=== PATIENT | male | born 1935 | race Caucasian/White ===

== ENCOUNTER 2018-08-14 10:02 | Outpatient (REF) | payer MEDICARE, BC, SELFPAY ==
[2018-08-14 14:34] LABS: Anion Gap 10.6 mmol/L (3-11); BUN 26 mg/dL (7-18); CO2 26.4 mmol/L (21.0-32.0); CREATININE 1.87 mg/dL (0.70-1.30); Calcium 9.3 mg/dL (8.5-10.1); Chloride 105 mmol/L (98-107); Estimated GFR 34.83 (mL/min/1.73m2); Glucose 113 mg/dL (70-100); Potassium 4.7 mmol/L (3.5-5.1); Sodium 142 mmol/L (136-145)
== END 2018-08-14 10:22 ==
LOC: NCHCN 10:02
PROVIDERS: PCP Internal Medicine; Visit Provider Internal Medicine
DX: I10 Essential (primary) hypertension (principal)
CPT/HCPCS: 80048

== ENCOUNTER 2019-02-16 11:06 | Outpatient (REF) | payer MEDICARE, BC, SELFPAY ==
[2019-02-16 13:07] LABS: Anion Gap 9.4 mmol/L (3-11); BUN 26 mg/dL (7-18); CO2 26.6 mmol/L (21.0-32.0); Calcium 9.2 mg/dL (8.5-10.1); Chloride 104 mmol/L (98-107); Estimated GFR 38.88 (mL/min/1.73m2); Glucose 108 mg/dL (70-100); Potassium 4.7 mmol/L (3.5-5.1); Sodium 140 mmol/L (136-145)
[2019-02-16 14:30] LABS: Cholesterol 158 mg/dL (50-200); HDL Cholesterol 55 mg/dL (40-60); LDL CHOLESTEROL 86 mg/dL (<100); Triglyceride 90 mg/dL (30-150)
== END 2019-02-16 11:26 ==
LOC: NCHCN 11:06
PROVIDERS: PCP Internal Medicine; Visit Provider Internal Medicine
DX: E78.5 Hyperlipidemia, unspecified (principal); I10 Essential (primary) hypertension; N18.3 Chronic kidney disease, stage 3 (moderate)
CPT/HCPCS: 80048; 80061; 83721

== ENCOUNTER 2020-05-19 11:02 | Outpatient (REF) | payer MEDICARE, BC, SELFPAY ==
[2020-05-19 21:11] LABS: HCT 43.5 % (40.0-50.0); HGB 15.2 g/dL (13.5-17.5); Mean Corp. HGB Concentration 34.9 g/dL (32.0-36.0); Mean Corpuscular Hemoglobin 32.2 pg (27.0-33.0); Mean Corpuscular Volume 92.2 fL (80-95); Mean Platelet Volume 10.5 fL (8.0-11.0); Platelet Count 267 x1000/uL (130-400); RBC 4.72 m/cumm (4.50-6.00); RBC Distribution Width 13.9 % (11.8-14.1); White Blood Cell Count 9.34 k/cumm (4.4-10.8)
[2020-05-19 21:45] LABS: ALT 31 U/L (16-63); AST 24 U/L (15-37); Albumin 4.1 g/dL (3.4-5.0); Alkaline Phosphatase 83 U/L (46-116); Anion Gap 11.9 mmol/L (3-11); BUN 32 mg/dL (7-18); Bilirubin, Total 1.2 mg/dL (0.2-1.0); CO2 24.1 mmol/L (21.0-32.0); Calcium 9.3 mg/dL (8.5-10.1); Chloride 106 mmol/L (98-107); Estimated GFR 36.21 (mL/min/1.73m2); Ferritin 488 ng/mL (26-388); Glucose 135 mg/dL (74-106); Potassium 4.4 mmol/L (3.5-5.1); Sodium 142 mmol/L (136-145); Total Protein 6.9 g/dL (6.4-8.2)
[2020-05-19 21:47] LABS: ESR 11 mm/hr (1-20)
== END 2020-05-19 11:22 ==
LOC: NCHCN 11:02
PROVIDERS: PCP Internal Medicine; Visit Provider Internal Medicine
DX: R10.2 Pelvic and perineal pain (principal); M25.551 Pain in right hip; N18.3 Chronic kidney disease, stage 3 (moderate); I10 Essential (primary) hypertension
CPT/HCPCS: 80053; 85027; 85652; 82728

== ENCOUNTER 2020-05-31 12:38 | Emergency (ER) | payer MEDICARE, BC, SELFPAY ==
--- NOTE | 2020-05-31 12:42 | ED.GENADUL_ITS ---
Discharge Plan Disposition Patient Disposition: HOME Condition: Good Discharge Details Chief Complaint: Orthopedic Clinical Impression: Arthritis, Bursitis Primary Care Provider: Gabriel Brooks ED Provider: Nannette Andujar Home Meds and New Rx's Prescriptions: Continued atorvastatin 20 mg Tablet 20 mg PO DAILY RF: 0 amlodipine 5 mg Tablet 5 mg PO DAILY RF: 0 aspirin [Aspir-81] 81 mg Tablet,Delayed Release (Dr/Ec) 81 mg PO DAILY RF: 0 lisinopril 40 mg Tablet 40 mg PO DAILY RF: 0 cholecalciferol (vitamin D3) [Vitamin D3] 50 mcg (2,000 unit) Capsule 2,000 unit PO DAILY RF: 0 Discharge Instructions Instructions: Arthritis (ED) Additional Instructions: Encourage water intake. You may continue with Tylenol and/or ibuprofen as needed for discomfort. Please use these medications more frequently as I would like you to be able to move more than you have been. Please encourage gentle stretching and ambulation. Avoid heavy lifting. Please call orthopedics, number listed below, to schedule follow-up appointment for your arthritis. Referral for physical therapy is also attached. You may continue with topical options as well such as lidocaine patches to help with discomfort. If you develop any fever/chills, increased pain, weakness or other new/worsening symptom please seek care urgently once again. Stand Alone Forms: Physical Therapy Referral Referrals: George Charlton MD [ [facility] STAFF PHYSICIAN] - Gabriel Brooks MD [Primary Care Provider] - Discharge Data Discharge Date/Time-TO BE ENTERED AT DEPARTURE: 05/31/20 15:54 Medical Decision Making Patient is a pleasant 85-year-old gentleman presenting today, brought in via EMS, with chief complaint of right hip pain. He reports the pain began several months ago. He has had waxing and waning discomfort. However, he states that the pain has been more so persistent over the past week. States that he had mowed his lawn for an extended period of time and since then has been having right-sided hip pain. He reports that the pain is minimal recent pain mainly at a 3 out of 10. However, he then goes on to say that he has not been getting out of bed for the past week except to use the restroom. He denies any numbness or tingling. Denies any trauma. States he was evaluated by his primary care who felt this was likely osteoarthritis. He was scheduled for outpatient x-rays but states that he had the schedule long which is what prompted him to come in via EMS today for evaluation and x-rays. He does report that he can occasionally have right-sided low back pain as well and also states that this has been chronic. He denies any change in his bowel or bladder habits. Reports that he intermittently uses Tylenol and ibuprofen but as he is able to control the pain with immobilization he tries to go without medications. On exam, patient is resting comfortably. He appears to be no acute distress. Normal abdominal exam. Pelvis is stable. He is to persist with pulses. Good range of motion of the hip. He has pain with palpation over the greater trochanter consistent with trochanteric bursitis. No groin pain. No lower extremity edema. 2+ distal pulses. Sensation is intact, no saddle paresthesias. Exam is back significant for discomfort of the right SI joint. Patient does report the pain can radiate either from this area to the right half or vice versa. He has no midline tenderness. No paraspinal tenderness. Skin is intact, no rash, erythema, warmth. He is declining any analgesics at this time. X-rays reviewed by radiologist: FINDINGS: Five views were obtained. There is a mild right convex lumbar scoliosis. There are marked hypertrophic degenerative changes involving the facet joints and vertebral endplates throughout the lumbar region. There is no evidence of spondylolysis or spondylolisthesis. There are mild degenerative changes of the SI joints. There is loss of height intervertebral disc spaces L2-3 and L5-S1. There is a mild pseudo spondylolisthesis of L5-S1. No evidence of acute fracture. IMPRESSION: Severe degenerative changes, no evidence of acute injury. FINDINGS: Two views were obtained. There are moderate degenerative changes of both hips. No evidence of acute fracture. IMPRESSION: Discussed findings with the patient. As his pain seems to be primarily over the bursa, I did offer an injection which patient declines. He is in agreement with a lidocaine patch. I did encourage him to take analgesics that are offered to him as him being so immobile could be detrimental to his health and many other ways. I also advised that this may lead to persistent discomfort. Initially, the patient had declined. However, when we attempted to mobilize him in order to get him into a wheelchair, his pain came on much more and he required Tylenol and ibuprofen. He is able to straight leg raise after this and is able to get up unassisted to a wheelchair. Patient I did discuss his discomfort further. I will refer him to physical therapy. I will also refer him to orthopedics for evaluation of his arthritis. At this point, I am unclear as to what is causing the maximal discomfort for this patient. Again, he is most tender laterally and has no pain with axial loading of the hip. No other, with mobilization the pain does seem to be more SI joint with no radiation to suggest sciatic impingement. Patient was given strict return precautions. I did speak with the patient's over the phone. I did advise he may return at any point for further evaluation and pain manag ement techniques. He will follow-up with primary care. All his questions and concerns were addressed and he is in agreement this plan. HPI General Mode of arrival: EMS . Date/Time Provider Initiated Documentation: 05/31/20 12:42 . Limitations to Documentation: no limitations . Information obtained by: patient, RN notes reviewed and old records reviewed . History of Present Illness 85 year old M presents to the emergency department with the chief complaint of Right hip pain, described as mild, with intensity rated at 3. Quality is described as aching, and is localized to the right and lower extremity. Patient reports no radiation. Patient started experiencing this week(s) and it has been constant (Resolved with immobilization, otherwise constant). Immobilization improves symptom(s), Movement worsens symptoms . Patient notes no other symptoms.; denies chest pain, cough, fever/chills, nausea/vomiting, rash, shortness of breath and weakness. Patient did receive the following treatments prior to arrival, none Related Data Home Medications Medication Instructions Recorded Confirmed amlodipine 5 mg PO DAILY 05/31/20 05/31/20 aspirin [Aspir-81] 81 mg PO DAILY 05/31/20 05/31/20 atorvastatin 20 mg PO DAILY 05/31/20 05/31/20 cholecalciferol (vitamin D3) 2,000 unit PO DAILY 05/31/20 05/31/20 [Vitamin D3] lisinopril 40 mg PO DAILY 05/31/20 05/31/20 Allergies Allergy/AdvReac Type Severity Reaction Status Date / Time No Known Allergies Allergy Unverified 05/31/20 12:58 Review of Systems Constitutional Constitutional: Reports as per HPI, Denies chills, Denies fatigue, Denies fever(s), Denies frequent falls and Denies headache(s) Eyes Eyes: Denies change in vision ENT Ears, Nose, Mouth, and Throat: Denies headache(s) Cardiovascular Cardiovascular: Denies chest pain, Denies dyspnea and Denies dyspnea on exertion Respiratory Respiratory: Denies cough, Denies dyspnea and Denies dyspnea on exertion Gastrointestinal Gastrointestinal: Denies abdominal pain, Denies change in bowel habits and Denies fecal incontinence Genitourinary Genitourinary: Reports as per HPI, Denies urinary hesitancy and Denies urinary incontinence Musculoskeletal Musculoskeletal: Reports as per HPI, Reports abnormal gait (states difficulty moving secondary to pain), Reports back pain (right sided lumbar back pain), Denies muscle weakness, Denies numbness, Reports radiating pain into limb (to right hip), Reports stiffness and Denies tingling Integumentary/Breasts Skin/Breast: Reports as per HPI and Denies rash Neurologic Neurologic: Reports as per HPI, Reports abnormal gait (states difficulty moving secondary to pain), Denies frequent falls, Denies headache(s), Denies localized weakness, Denies numbness, Denies radicular pain, Denies sensory deficit, Denies tingling and Denies paresthesias Endocrine Endocrine: Denies fatigue [facility] Social History Smoking/Tobacco Use Status: Never Drug use: Never Substance use type: does not use Exam Const General: cooperative, healthy appearing, comfortable, no acute distress, well developed and well groomed Nutritional Appearance: average body habitus and well nourished Orientation: alert and awake Eyes General: appearance normal, both eyes and all related structures Neck Neck: normal visual inspection, full ROM, no lymphadenopathy and no meningeal signs Resp Effort & Inspection: normal respiratory effort and able to speak in complete sentences Auscultation: clear to auscultation bilaterally, no rales, no rhonchi and no wheezes Cardio Rate: regular rate Rhythm: regular rhythm Heart Sounds: S1 normal and S2 normal GI Inspection: normal to inspection Palpation: soft, no hepatosplenomegaly, no guarding, no hernias, not rigid and nontender Percussion: normal to percussion Auscultation: normal bowel sounds Back/Spine/Pelvis Back: no CVA tenderness Cervical Spine: normal cervical lordosis, cervical ROM normal, No cervical spinal tenderness and No step off deformity Thoracic/Lumbar Spine: thoracic and lumbar spine normal to inspection, No paraspinal tenderness, No thoracic spinal tenderness, No lumbar spinal tenderness and straight leg raise positive (difficulty preforming secondary to rigtht hip pain) Pelvis: no pain with anterior-posterior compression and no pain with lateral compression Sacroiliac joints: on the right tender to palpation and on the left nontender Sacrum: no ecchymosis, no erythema, no swelling and no tenderness Skin General skin exam: no rashes or lesions noted Neuro General: patient alert and patient awake Cognition: normal cognition Speech: speech normal Motor: muscle tone normal throughout, strength 5/5 throughout, no movement abnormalities noted and no fasciculations Sensory Exam: no sensory deficits noted (no saddle paresthesias) DTR's: Rt Patellar: 2+, Lt Patellar: 2+, Rt Ankle: 2+ and Lt Ankle: 2+ Extrem General: normal to inspection, no joint enlargement, no pedal edema and no calf tenderness Right lower extremity: normal to inspection, normal capillary refill, no joint enlargement, hip/thigh Details: normal to inspection, tenderness Location: of the hip Location: laterally and over the greater trochanter, normal ROM and other (no pain with axial loading); no swelling, no abrasions, no lacerations, no ecchymosis, no crepitus and no deformity, knee Details: normal to inspection and normal ROM; no tenderness and no swelling, lower leg Details: normal to inspection and no edema; no tenderness and no palpable cords and foot Details: normal capillary refill, toes with normal ROM and vascular exam Details: dorsalis pedis pulse present and normal capillary refill; no tenderness; no edema Psych Appearance: grossly normal and well kempt Mental Status: mental status grossly normal Speech and Movement: speech and movement normal
[2020-05-31 12:51] VITALS: BP 139/63; PULSE 65; RESP 16; TEMP 36.2; O2SAT 99
--- NOTE | 2020-05-31 13:00 | DI.RAD_ITS ---
EXAM: XR HIP RT COMPLETE AP PELVIS CLINICAL HISTORY: pain, difficulty ambulating TECHNIQUE: COMPARISON: CR XR LUMBAR SPINE COMPLETE from 05/31/2020 FINDINGS: Two views were obtained. There are moderate degenerative changes of both hips. No evidence of acute fracture. IMPRESSION:
--- NOTE | 2020-05-31 13:15 | DI.RAD_ITS ---
EXAM: XR LUMBAR SPINE COMPLETE CLINICAL HISTORY: pain TECHNIQUE: COMPARISON: No exams were available for comparison FINDINGS: Five views were obtained. There is a mild right convex lumbar scoliosis. There are marked hypertrop hic degenerative changes involving the facet joints and vertebral endplates throughout the lumbar reg ion. There is no evidence of spondylolysis or spondylolisthesis. There are mild degenerative change s of the SI joints. There is loss of height intervertebral disc spaces L2-3 and L5-S1. There is a m ild pseudo spondylolisthesis of L5-S1. No evidence of acute fracture. IMPRESSION: Severe degenerative changes, no evidence of acute injury.
[2020-05-31] MEDS: Lidocaine 5% Patch 1 PATCH TP (14:40)
[2020-05-31] MEDS: Acetaminophen 500 MG TAB 1000 MG PO (15:48)
[2020-05-31] MEDS: Ibuprofen 600 MG TAB PO (15:48)
[2020-05-31 15:57] VITALS: BP 127/69; PULSE 71; RESP 12; TEMP 36.5; O2SAT 97
== END 2020-05-31 15:54 | disposition home or self-care (01) ==
PROVIDERS: Emergency Provider Physician Assistant; PCP Internal Medicine
DX: M16.11 Unilateral primary osteoarthritis, right hip (principal); X50.1XXA Overexertion from prolonged static or awkward postures, initial encounter; M70.61 Trochanteric bursitis, right hip
CPT/HCPCS: 99284; 72110; 73502

== ENCOUNTER 2020-06-26 19:12 | Inpatient (IN) | payer MEDICARE, BC, SELFPAY ==
[2020-06-26] VITALS (22 sets, daily range): BP systolic 83–147; BP diastolic 57–92; PULSE 64–97; RESP 13–26; TEMP 36–36.5; O2SAT 97–99
--- NOTE | 2020-06-26 19:34 | ED.GENADUL_ITS ---
Discharge Plan Disposition Patient Disposition: OTHER Condition: Serious Discharge Details Chief Complaint: Orthopedic Clinical Impression: Hip pain, Uremia, KIKE (acute kidney injury) Primary Care Provider: Gabriel Brooks ED Provider: Stoney Schafer Home Meds and New Rx's Prescriptions: No Action atorvastatin 20 mg Tablet 20 mg PO DAILY RF: 0 amlodipine 5 mg Tablet 5 mg PO DAILY RF: 0 aspirin [Aspir-81] 81 mg Tablet,Delayed Release (Dr/Ec) 81 mg PO DAILY RF: 0 lisinopril 40 mg Tablet 40 mg PO DAILY RF: 0 cholecalciferol (vitamin D3) [Vitamin D3] 50 mcg (2,000 unit) Capsule 2,000 unit PO DAILY RF: 0 Medical Decision Making 85-year-old gentleman presents complaining of right hip pain that has been ongoing since February. Has been seen by his primary care provider and here in the ER. He does have a positive straight leg raise otherwise examination of his hip is rather unremarkable. There is no erythema, warmth, fever. Extremely low suspicion for septic hip. Patient is already had plain films, likely a little value at this point. He does appear slightly dry, was complaining of nausea, and I do not see any recent laboratory values. Patient makes it very clear that he does not want any shots. He is agreeable to having an IV started. We discussed his nausea, he reports that his nausea is improving on its own and he declines any nausea medications. He also declines any pain medications whatsoever. He is willing to have a Lidoderm patch applied. I did remind him that he already has Lidoderm patches prescribed and that he is here in the ER to obtain pain control. I may have difficulty doing this providing him with a Lidoderm patch that he is already prescribed. Lidoderm patch was applied. Will obtain CBC, CMP and urinalysis. Do question if some of this pain from his hip could be referred from back, abdomen, pelvis. Blood work reveals a white blood cell count of 12.10. We will add on CRP and sed rate. Sodium 136 potassium 5.8 BUN 91, creatinine 2.57 and estimated GFR of 24.01. Calcium 10.1. Renal function appears to be worse than his typical baseline. Patient given 1 L IV fluid, awaiting urinalysis. Will obtain CT abdomen and pelvis without contrast for further evaluation of possible lytic lesion, urinary obstruction, etc. that may explain his uremia. ESR of 16. CRP of 0.31. CT imaging of abdomen and pelvis without contrast read by virtual radiology as no acute findings. Benign-appearing renal cysts. Diverticulosis. Degenerative changes in the spine. Minor degenerative changes in the hips. Patient was observed in the ER for over 3 hours. He was unable to provide a urine sample. At this time he is declining a [place] catheter or straight catheter. Still awaiting urinalysis. I was able to speak with the patient's daughter and regarding his ER visit, laboratory values, CT findings. In the setting of his ongoing right hip pain it appears as though he is having difficulty getting around the house and caring for himself. I almost question if there is a component of failure to thrive, malnutrition, dehydration, etc. Patient only is willing to have Lidoderm patch applied. When comparing his previous laboratory values, he does appear to have an KIKE today. Hopefully this is simply secondary to dehydration howeve glomerulonephritis has yet to be excluded. Believe bringing the patient in for observation admission, IV hydrati on and repeating laboratory values is reasonable. In the meantime he can certainly receive a PT-OT consultation and potentially orthopedic consultation as well. In the meantime we could have our care management team meet with him for potential additional home resources for he and his elderly . I discussed the case with Dr. Joseph agreeable admission. I will write holding orders. Patient still unable to give urine sample. Agreeable to a catheter. Medical Records Medical records reviewed: Yes I reviewed the patient's medical records. Lab Data Lab results reviewed: Yes I reviewed the patient's lab results. Lab results narrative: Laboratory Tests Range/Units 06/26/20 06/26/20 06/26/20 19:50 20:40 20:40 WBC (4.4-10.8) 10^3/uL 12.10 H RBC (4.36-5.78) 10^6/uL 5.56 Hgb (13.5-17.5) g/dL 17.3 Hct (40.0-50.0) % 51.3 H MCV (80-95) fL 92.3 MCH (27.0-33.0) pg 31.1 MCHC (32.0-36.0) % 33.7 RDW (11.8-14.1) % 13.2 Plt Count (130-400) 10^3/uL 256 MPV (8.0-11.0) fL 10.3 Immature Gran % 0.5 Neutrophils % 73.7 Lymphocytes % 17.9 Monocytes % 6.2 Eosinophils % 1.2 Basophils % 0.5 Nucleated RBC % % 0 Absolute Neutrophils (1.2-6.7) 10^3/uL 8.92 H Absolute Lymphocytes (1.2-3.4) 10^3/uL 2.17 Absolute Monocytes (0.1-0.8) 10^3/uL 0.75 Absolute Eosinophils (0.0-0.7) 10^3/uL 0.15 Absolute Basophils (0.0-0.2) 10^3/uL 0.06 ESR (1-20) mm/hr Sodium (136-145) mmol/L 136 Potassium (3.5-5.1) mmol/L 5.8 H Chloride (98-107) mmol/L 104 Carbon Dioxide (21.0-32.0) mmol/L 16.1 L Anion Gap (3-11) mmol/L 15.9 H BUN (7-18) mg/dL 91 H* Creatinine (0.70-1.30) mg/dL 2.57 H Estimated GFR/1.73 m2 (mL/min/1.73m2) 24.01 Glucose (74-106) mg/dL 116 H Calcium (8.5-10.1) mg/dL 10.1 Total Bilirubin (0.2-1.0) mg/dL 1.0 AST (15-37) U/L 22 ALT (16-63) U/L 64 H Alkaline Phosphatase (46-116) U/L 110 C-Reactive Protein (0.0-0.3) mg/dL 0.31 H Total Protein (6.4-8.2) g/dL 7.3 Albumin (3.4-5.0) g/dL 3.7 Range/Units 06/26/20 20:40 WBC (4.4-10.8) 10^3/uL RBC (4.36-5.78) 10^6/uL Hgb (13.5-17.5) g/dL Hct (40.0-50.0) % MCV (80-95) fL MCH (27.0-33.0) pg MCHC (32.0-36.0) % RDW (11.8-14.1) % Plt Count (130-400) 10^3/uL MPV (8.0-11.0) fL Immature Gran % Neutrophils % Lymphocytes % Monocytes % Eosinophils % Basophils % Nucleated RBC % % Absolute Neutrophils (1.2-6.7) 10^3/uL Absolute Lymphocytes (1.2-3.4) 10^3/uL Absolute Monocytes (0.1-0.8) 10^3/uL Absolute Eosinophils (0.0-0.7) 10^3/uL Absolute Basophils (0.0-0.2) 10^3/uL ESR (1-20) mm/hr 16 Sodium (136-145) mmol/L Potassium (3.5-5.1) mmol/L Chloride (98-107) mmol/L Carbon Dioxide (21.0-32.0) mmol/L Anion Gap (3-11) mmol/L BUN (7-18) mg/dL Creatinine (0.70-1.30) mg/dL Estimated GFR/1.73 m2 (mL/min/1.73m2) Glucose (74-106) mg/dL Calcium (8.5-10.1) mg/dL Total Bilirubin (0.2-1.0) mg/dL AST (15-37) U/L ALT (16-63) U/L Alkaline Phosphatase (46-116) U/L C-Reactive Protein (0.0-0.3) mg/dL Total Protein (6.4-8.2) g/dL Albumin (3.4-5.0) g/dL ECG Data Attestation: I personally reviewed and interpreted this ECG (s) as follows: Interpretation: Please see official report by Dr. Collazo. Sinus rhythm, ventricular of 76. No STEMI HPI General Mode of arrival: EMS . Date/Time Provider Initiated Documentation: 06/26/20 19:15 . Limitations to Documentation: no limitations . Information obtained by: patient and EMS . HPI Narrative: This is an 85-year-old gentleman with past medical history that includes hypertension, hypercholesteremia, cerebral hemorrhage, osteoarthritis of the right hip, presenting via EMS for ongoing right hip pain. Symptoms have been going on for many months, he was seen in the ER for the same earlier this month and had x- rays obtained. X-rays showed severe degenerative changes but no acute injury. He reports that he has been using Lidoderm patches which do seem to help however he left his most recent on for longer than 12 hours and then had no additional pain relief. He does not take anti-inflammatories as they upset his stomach. He has been using Tylenol sporadically but admits that it is most likely subtherapeutic. He denies any recent illness or trauma. Denies headache, chest pain, neck pain, abdominal pain, vomiting, numbness, tingling, weakness. He does report occasional episodes of nausea, had an episode in the back of the ambulance on the way here. He was going to follow-up with orthopedics but never did follow-up. He reports that the pain is minimal at rest but worse with movement or bearing weight. He does typically ambulate with a walker. Patient is a rather vague and poor historian. Related Data Home Medications Medication Instructions Recorded Confirmed amlodipine 5 mg PO DAILY 05/31/20 06/26/20 aspirin [Aspir-81] 81 mg PO DAILY 05/31/20 06/26/20 atorvastatin 20 mg PO DAILY 05/31/20 06/26/20 cholecalciferol (vitamin D3) 2,000 unit PO DAILY 05/31/20 06/26/20 [Vitamin D3] lisinopril 40 mg PO DAILY 05/31/20 06/26/20 Allergies Allergy/AdvReac Type Severity Reaction Status Date / Time No Known Allergies Allergy Unverified 06/26/20 19:26 General Stated Complaint: Orthopedic SANTINO: 3 Review of Systems Constitutional Constitutional: Reports fatigue, Denies fever(s), Denies headache(s) and Denies weakness Eyes Eyes: Denies change in vision ENT Ears, Nose, Mouth, and Throat: Denies headache(s) and Denies neck pain Cardiovascular Cardiovascular: Denies chest pain and Denies dyspnea Respiratory Respiratory: Denies cough and Denies dyspnea Gastrointestinal Gastrointestinal: Denies abdominal pain, Reports nausea and Denies vomiting Genitourinary Genitourinary: Denies hematuria and Denies dysuria Musculoskeletal Musculoskeletal: Denies neck pain, Denies numbness and Denies tingling Integumentary/Breasts Skin/Breast: Denies rash Neurologic Neurologic: Denies headache(s), Denies numbness, Denies tingling and Denies weakness Endocrine Endocrine: Reports fatigue Hematologic/Lymphatic Hematologic/Lymphatic: Denies easy bleeding and Denies easy bruising FOR[facility]LY [facility] Medical History Arthritis (Acute) Social History Smoking/Tobacco Use Status: Never Drug use: Never Substance use type: does not use Do you feel safe at home: Yes Do you feel safe in your relationship?: Yes Exam Const General: cooperative, healthy appearing, comfortable and no acute distress Orientation: alert, awake and oriented x3 HENMT Head: normal to inspection, normocephalic and atraumatic Mouth: moist mucous membranes abnormal (Slightly dry) Throat: posterior oropharynx normal Eyes Conjunctivae: conjunctivae normal Sclera: sclerae normal Neck Neck: normal visual inspection, full ROM, trachea midline, supple and nontender Resp Effort & Inspection: normal respiratory effort and able to speak in complete sentences Auscultation: clear to auscultation bilaterally Cardio Rate: regular rate Rhythm: regular rhythm GI Palpation: soft, not firm, no guarding and nontender Auscultation: normal bowel sounds Back/Spine/Pelvis Back: back tenderness Thoracic/Lumbar Spine: straight leg raise positive (Right 5 degrees, left 15) Skin General skin exam: no rashes or lesions noted Neuro General: patient alert, patient awake, patient oriented x3, moves all extremities and no focal motor deficits Cranial Nerves: CN's II-XI intact bilaterally Cognition: normal cognition Speech: speech normal Motor: muscle tone normal throughout and strength 5/5 throughout Sensory Exam: no sensory deficits noted Extrem General: capillary refill normal Right upper extremity: normal to inspection, full ROM and normal capillary refill Left upper extremity: normal to inspection, full ROM and normal capillary refill Right lower extremity: normal to inspection, normal capillary refill and hip/thigh Details: normal to inspection and tenderness (Diffuse mild lateral); no swelling and no ecchymosis Left lower extremity: normal to inspection and normal capillary refill Psych Appearance: grossly normal Mental Status: mental status grossly normal Course Vital Signs Vital signs: Vital Signs Temperature 36.5 C 06/26/20 19:16 Pulse 97 H 06/26/20 19:16 Respiratory Rate 18 06/26/20 19:16 Blood Pressure 147/65 H 06/26/20 19:16 Pulse Oximetry 99 06/26/20 19:16 Temperature 36.5 C 06/26/20 19:16 Temperature Source Skin 06/26/20 19:16 Pulse 97 H 06/26/20 19:16 Respiratory Rate 18 06/26/20 19:16 Blood Pressure 147/65 H 06/26/20 19:16 Pulse Oximetry 99 06/26/20 19:16 Pain Level 1 06/26/20 19:16
[2020-06-26] MEDS: Lidocaine 5% Patch 1 PATCH TP (19:35)
[2020-06-26 20:08] LABS: Abs Immature Grans 0.06 10^3/uL (0.0-0.06); Absolute Basophil Count 0.06 10^3/uL (0.0-0.2); Absolute Eosinophil Count 0.15 10^3/uL (0.0-0.7); Absolute Lymphocyte Count 2.17 10^3/uL (1.2-3.4); Absolute Monocyte Count 0.75 10^3/uL (0.1-0.8); Basophils % 0.5; Eosinophils % 1.2; HCT 51.3 % (40.0-50.0); HGB 17.3 g/dL (13.5-17.5); Immature Grans % 0.5; Lymphocytes % 17.9; MCH 31.1 pg (27.0-33.0); MCHC 33.7 % (32.0-36.0); MCV 92.3 fL (80-95); MPV 10.3 fL (8.0-11.0); Monocytes % 6.2; Neutrophils % 73.7; Nucleated RBC 0 %; Platelet Count 256 10^3/uL (130-400); RBC 5.56 10^6/uL (4.36-5.78); RDW 13.2 % (11.8-14.1); RDW-SD 45.4 fL
[2020-06-26 20:11] LABS: Absolute Neutrophil Count 8.92 10^3/uL (1.2-6.7)
[2020-06-26 21:06] LABS: ALT 64 U/L (16-63); AST 22 U/L (15-37); Albumin 3.7 g/dL (3.4-5.0); Alkaline Phosphatase 110 U/L (46-116); Anion Gap 15.9 mmol/L (3-11); CO2 16.1 mmol/L (21.0-32.0); CREATININE 2.57 mg/dL (0.70-1.30); Calcium 10.1 mg/dL (8.5-10.1); Chloride 104 mmol/L (98-107); Estimated GFR 24.01 (mL/min/1.73m2); Glucose 116 mg/dL (74-106); Potassium 5.8 mmol/L (3.5-5.1); Sodium 136 mmol/L (136-145); Total Protein 7.3 g/dL (6.4-8.2)
[2020-06-26 21:09] LABS: BUN 91 mg/dL (7-18)
[2020-06-26 21:15] LABS: C-Reactive Protein 0.31 mg/dL (0.0-0.3)
--- NOTE | 2020-06-26 21:15 | RT.EKG_ITS ---
APPROVED REPORT Exam: Resting ECG Patient Location: E HR:76 bpm ECG Measurements Heart Rate 76 AXIS TX 190 P 37 QRSd 100 QRS -2 QT 383 T 59 QTc 431 Conclusion Sinus rhythm...normal P axis, V-rate 60- 99 Low voltage, extremity leads...all extremity leads <0.5mV
[2020-06-26 21:23] LABS: ESR 16 mm/hr (1-20)
--- NOTE | 2020-06-26 21:45 | DI.CT_ITS ---
EXAM: CT ABDOMEN PELVIS WO CLINICAL HISTORY: Right hip pain, uremic, KIKE. TECHNIQUE: Imaging Protocol: Axial computed tomography images with coronal and sagittal reformatted images were created and reviewed. COMPARISON: No exams were available for comparison FINDINGS: ABDOMEN: Lung Bases: Normal where visualized. Liver: Normal density. No measurable mass. Gallbladder and biliary tract: Cholelithiasis. No biliary ductal dilatation. Pancreas: Normal density, no abnormal calcifications or inflammatory process. Spleen: Normal. Kidneys: Normal size, contour and axis.No radiodense stones or obstructive uropathy. Bilateral renal cysts. Adrenal glands: No mass is seen. Lymph nodes: Within normal limits. Abdominal Aorta: 3.2 cm infrarenal abdominal aortic aneurysm. Atherosclerosis. PELVIS: Bladder:Symmetric distention, no gross wall thickening. Bowel: No obstruction or bowel wall thickening. No evidence of acute appendicitis. Small hiatal aneta ia. Colonic diverticulosis. No evidence of acute diverticulitis. Peritoneal cavity: No ascites, collection or mesenteric inflammatory response Reproductive organs: Within normal limits. Bones: Degenerative changes. Soft Tissues: Small fat containing umbilical hernia. IMPRESSION: No acute abdominal or pelvic process. RADIATION DOSE DELIVERED: 1,298.73mGy.cm Total DLP DATA REPOSITORY: All CT scans at this facility are submitted to the National Radiology Data Registry (NRDR) Dose Index Registry (DIR) with the [employer] (A[employer]). RADIATION OPTIMIZATION: All CT scans at this facility use at least one of these dose optimization te chniques: automated exposure control; mA and/or kV adjustment per patient size (includes targeted exa ms where dose is matched to clinical indication); or iterative reconstruction.
[2020-06-26] MEDS: Normal Saline 1,000 ML 1000 ML IV (21:52)
--- NOTE | 2020-06-26 22:05 | DI.VRAD_ITS ---
PROCEDURE INFORMATION: Exam: CT Abdomen And Pelvis Without Contrast Exam date and time: 06/26/2020 21:41 Age: 85 years old Clinical indication: Other: R hip; Patient HX: Lele, right hip pain, uremic TECHNIQUE: Imaging protocol: Computed tomography of the abdomen and pelvis without contrast. Radiation optimization: All CT scans at this facility use at least one of these dose optimization techniques: automated exposure control; mA and/or kV adjustment per patient size (includes targeted exams where dose is matched to clinical indication); or iterative reconstruction. COMPARISON: CR XR HIP RT COMPLETE AP PELVIS 05/31/2020 13:53 FINDINGS: Liver: No hepatic masses on noncontrast imaging. Gallbladder and bile ducts: Cholelithiasis. No pericholecystic edema. No significant biliary dilation or radiopaque stones in the biliary tree. Pancreas: No ductal dilation. No masses. Spleen: No splenomegaly or focal lesions. Adrenals: No mass. Kidneys and ureters: Benign-appearing renal cysts. No nephrolithiasis or collecting system obstruction. Mild right renal cortical atrophy is suggested. Stomach and bowel: Descending and sigmoid diverticulosis. No diverticulitis. No focal pathology in the small bowel. Appendix: No evidence of appendicitis. Intraperitoneal space: No free air. No significant fluid collection. Vasculature: Infrarenal aortic dilation with no evidence of rupture. Mild aortoiliac atherosclerosis. Lymph nodes: No significantly enlarged lymph nodes. Bladder: Unremarkable as visualized. Reproductive: Unremarkable as visualized. Bones/joints: Degenerative changes in the spine. No acute fracture or subluxation. Minor degenerative changes in the hips. Multilevel disc space narrowing. Soft tissues: Tiny fat-containing umbilical hernia. IMPRESSION: 1. No acute findings. 2. Additional findings as described. Dictated and Authenticated by: Mayra Henao MD. Ordering:YUDI Lua MD
[2020-06-26 23:15] LABS: Bilirubin Negative (Negative); Blood Negative (Negative); Clarity Clear (Clear); Glucose Negative (Negative); Ketones Trace mg/dL (Negative); Leukocyte Esterase Negative (Negative); Nitrite Negative (Negative); Urobilinogen 0.2 EU/dL (Up TO 0.2); pH 5.5 (5-8)
[2020-06-26] MEDS: Lidocaine 2% Jelly 11 ML SYR (23:23)
[2020-06-26] MEDS: Normal Saline 1,000 ML 125 ML IV (23:24)
--- NOTE | 2020-06-26 23:32 | W.PM.HP.N ---
Date of service: 06/26/20 Time of Service: 23:45 Assessment and Plan Assessment and plan (1) Hip pain: Status: Acute Assessment and plan: Patient has evidence of significant degenerative changes in his lumbar sacral spine which are likely the major cause of his pain. He also has evidence for hip osteoarthritis. I would appreciate the input of orthopedic surgery to make sure we are not missing a significant cause of his pain. Level of the patient's disability is dramatic, but this may be due to his limiting of his activity over the last 2 months in response to the pain. I have ordered physical therapy to evaluate for safety and to help in rehabilitation and regaining function. CRP and sed rate are not consistent with joint infection or other serious infection or inflammatory condition. (2) KIKE (acute kidney injury): Status: Acute Assessment and plan: Patient has a clear increase in his creatinine from baseline of around 1.8 last measured May 19 up to 2.57. More notable is the elevation in BUN, suggesting prerenal azotemia. He had some difficulty providing a urine, but with catheterized for only 100 mL so not consistent with retention. No hydronephrosis or other renal pathology on CT. His urinalysis is not consistent with nephritis or nephrosis. Suspect his acute kidney injury secondary to decreased oral intake of fluids, and possibly to some NSAID use. We will hydrate and hold lisinopril given concurrent hyperkalemia. It appears the patient's dyspepsia is contributing to his lack of oral intake. Also treat with a PPI. If creatinine not improving in the morning, would get urine electrolytes evaluate FENa. (3) Leukocytosis: Status: Active Assessment and plan: This appears to be secondary hemoconcentration infection or inflammation. Follow in the morning. (4) Hyperkalemia: Status: Acute Assessment and plan: In setting of acute kidney injury and OSCAR inhibitor use. Holding OSCAR inhibitor and hydrating with normal saline. (5) Elevated transaminase level: Status: Acute Assessment and plan: This is a new finding. Only AST is elevated. He drinks minimal alcohol. There are not other signs of acetaminophen toxicity. Will follow repeat with morning labs, further evaluate if persistent. (6) Hypertension: Status: Chronic Assessment and plan: Has been well controlled on amlodipine and lisinopril. Holding lisinopril, so will increase amlodipine to 10 mg from 5 mg. 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 record, it was a ischemic cerebellar stroke and not hemorrhagic. He is on 81 mg aspirin and atorvastatin for secondary prevention. Given statin use and feelings of muscle weakness, CPK ordered with morning labs. (8) DVT prophylaxis: Status: Acute Assessment and plan: Lovenox (9) Discharge planning issues: Status: Acute Assessment and plan: Patient was admitted for observation and is stable on the medical floor. He is full code. His goal is to return home. History of Present Illness History of Present Illness Chief Complaint: Right hip pain, general weakness, inability to ambulate Narrative: 85-year-old man with history of cerebellar CVA and 2013 and chronic renal insufficiency presented the emergency room with worsening of right hip pain with progressive disability over the past 2 months associated with generalized weakness and malaise. Patient states his hip problem for started in February when he woke up with some pain after sleeping in an odd posture. He had some pain with walking, but this improved on its own over the next few weeks. The pain returned more severely after riding his tractor for several hours at the end of April, and has been present ever since, forcing him to stay in bed most the day. As the pain has progressed, he has lost the ability to drive his automobile. He has been ambulating with a walker just to use the restroom, but on the day of admission had difficulty even with a walker. His pain is sharp, and improved with positioning with his back and incline in his leg extended straight in bed. He denies numbness or radiation. He describes some pain in the anterior and lateral hip, but most severe pain in the posterior hip/sacral area. He was seen May 31, and x-rays showed severe degenerative changes in his lumbosacral spine and moderate osteoarthritis in both hips. It was also felt he had trochanteric bursitis, he declined an injection. Plan was to follow-up with orthopedic surgery and physical therapy, but he never did this. He has been taking both acetaminophen and some ibuprofen, though states he less than 10 ibuprofen doses in the past month as they upset his stomach. He states he is using between 1 and 4 g of acetaminophen daily. During the past month, he is also noted decrease in appetite. He has tried to take enough fluids, and has been using boost when he does not feel like eating. He thinks he has lost a few pounds. He feels he is generally weak, especially in his legs, but denies focal weakness. He states his legs have trouble holding them up because he is not using them. He has felt feverish at times but denies overt fevers, chills, or night sweats. Review of Systems Constitutional Constitutional: Reports as per HPI, Denies body ache(s), Reports headache(s) (Occasional twinge), Reports lethargy and Reports poor appetite Eyes Eyes: Denies blurry vision, Denies loss of vision and Denies other visual disturbances ENT Ears, Nose, Mouth, and Throat: Denies change in voice, Denies dysphagia, Denies vertigo, Reports headache(s) (Occasional twinge), Denies hoarseness, Denies mouth lesions and Denies sore throat Cardiovascular Cardiovascular: Denies chest pain, Reports lightheadedness, Denies palpitations and Denies dyspnea Respiratory Respiratory: Denies cough, Denies dyspnea and Denies wheezing Gastrointestinal Gastrointestinal: Denies abdominal pain, Reports belching, Denies dysphagia, Denies diarrhea, Reports nausea and Denies vomiting Genitourinary Genitourinary: Denies difficulty urinating, Denies urinary hesitancy and Denies urinary incontinence Musculoskeletal Musculoskeletal: Reports system reviewed and no additional complaints, except as documented Integumentary/Breasts Skin/Breast: Denies rash and Denies skin ulcer Comments: Large skin tag in groin Neurologic Neurologic: Denies abnormal speech, Denies confusion, Denies vertigo, Reports headache(s) (Occasional twinge), Denies localized weakness, Denies loss of vision, Denies radicular pain, Denies sensory deficit and Denies paresthesias Psychiatric Psychiatric: Denies confusion and Denies mood swings Comments: Mention stress of family members getting sick and friend this year, along with the pandemic Endocrine Endocrine: Denies palpitations Hematologic/Lymphatic Hematologic/Lymphatic: Denies easy bleeding and Denies easy bruising Allergic/Immunologic Allergic/Immunologic: Denies wheezing [facility] Medical History (Updated 06/27/20 @ 00:42 by Dereck Joseph) Arthritis (Acute) 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 Incision and drainage of the neck in childhood. Social History (Updated 06/27/20 @ 00:45 by Dereck Joseph) Smoking/Tobacco Use Status: Never Alcohol Intake: current Alcohol Intake frequency: a few times a month Alcohol type: beer Drug use: Never Substance use type: does not use Do you feel safe at home: Yes Do you feel safe in your relationship?: Yes Additional Social history: Lives in [place] with his . 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 Meds Home Medications and Allergies Home Medications Medication Instructions Recorded Confirmed Type amlodipine 5 mg PO DAILY 05/31/20 06/26/20 History aspirin [Aspir-81] 81 mg PO DAILY 05/31/20 06/26/20 History atorvastatin 20 mg PO DAILY 05/31/20 06/26/20 History cholecalciferol (vitamin D3) 2,000 unit PO DAILY 05/31/20 06/26/20 History [Vitamin D3] lisinopril 40 mg PO DAILY 05/31/20 06/26/20 History Allergies Allergy/AdvReac Type Severity Reaction Status Date / Time No Known Allergies Allergy Unverified 06/26/20 19:26 Exam Narrative Exam Narrative: General: Alert and oriented x3. Appears comfortable lying in bed with legs extended. Pleasant and extremely talkative HEENT: Atraumatic. Conjunctive are clear with no icterus. Pupils equal round reactive to light with extraocular motions intact. No nystagmus. Moist mucous membranes with oropharynx benign. Neck is supple with no masses or lymphadenopathy or thyromegaly. Carotid pulses equal bilaterally. Lungs: Clear to auscultation bilaterally normal effort Cardiovascular: Regular rate and rhythm no murmurs gallops or rubs Abdomen: Active bowel sounds, soft, nontender nondistended. No masses or hepatosplenomegaly Extremities: Trace bilateral edema in the ankles. Legs nontender, gluteal muscles into the thigh. No clear wasting. MSK: No CVA tenderness. No focal spinal tenderness. Mild tenderness along SI joint on right. Symmetrical and close to normal range of motion of the hips and knees bilaterally. No joint redness or warmth or clear effusions. Mildly tender at the right greater trochanter. Skin: No rashes. Some dark patches on palms that rub away. Large grape size pedunculated skin tag on right upper medial thigh Neurologic: Cranial nerves II through XII grossly intact. Coordination including [id number] normal bilaterally. Normal tone, no tremor. Normal movement of all 4 extremities. Normal sensation in 4 extremities to light touch. I did not see him ambulate given his feeling of instability. Psychiatric: Normal mood, though he did become emotional when discussing personal losses this year. Thought process somewhat tangential and difficult to redirect or interject, though his memory is good and his stories coherent. Results CT of the abdomen pelvis: Degenerative changes in the spine. No fracture or subluxation. Mild degeneration of the hips and multilevel discs space narrowing. No acute findings in the abdomen or pelvis. Labs Result diagrams: 06/26/20 19:50 06/26/20 20:40 Labs: Laboratory Results - last 24 hr 06/26/20 06/26/20 06/26/20 19:50 20:40 20:40 WBC 12.10 H RBC 5.56 Hgb 17.3 Hct 51.3 H MCV 92.3 MCH 31.1 MCHC 33.7 RDW 13.2 Plt Count 256 MPV 10.3 Immature Gran % 0.5 Neutrophils % 73.7 Lymphocytes % 17.9 Monocytes % 6.2 Eosinophils % 1.2 Basophils % 0.5 Nucleated RBC % 0 Absolute Neutrophils 8.92 H Absolute Lymphocytes 2.17 Absolute Monocytes 0.75 Absolute Eosinophils 0.15 Absolute Basophils 0.06 ESR Sodium 136 Potassium 5.8 H Chloride 104 Carbon Dioxide 16.1 L Anion Gap 15.9 H BUN 91 H* Creatinine 2.57 H Estimated GFR/1.73 m2 24.01 Glucose 116 H Calcium 10.1 Total Bilirubin 1.0 AST 22 ALT 64 H Alkaline Phosphatase 110 C-Reactive Protein 0.31 H Total Protein 7.3 Albumin 3.7 Urine Color Urine Clarity Urine pH Ur Specific [place] Urine Protein Urine Ketones Urine Blood Urine Nitrite Urine Bilirubin Urine Urobilinogen Ur Leukocyte Esterase Urine Glucose 06/26/20 06/26/20 20:40 22:35 WBC RBC Hgb Hct MCV MCH MCHC RDW Plt Count MPV Immature Gran % Neutrophils % Lymphocytes % Monocytes % Eosinophils % Basophils % Nucleated RBC % Absolute Neutrophils Absolute Lymphocytes Absolute Monocytes Absolute Eosinophils Absolute Basophils ESR 16 Sodium Potassium Chloride Carbon Dioxide Anion Gap BUN Creatinine Estimated GFR/1.73 m2 Glucose Calcium Total Bilirubin AST ALT Alkaline Phosphatase C-Reactive Protein Total Protein Albumin Urine Color Yellow Urine Clarity Clear Urine pH 5.5 Ur Specific [place] 1.020 Urine Protein Negative Urine Ketones Trace H Urine Blood Negative Urine Nitrite Negative Urine Bilirubin Negative Urine Urobilinogen 0.2 Ur Leukocyte Esterase Negative Urine Glucose Negative Last Vital Signs Temp 36.5 C 06/26/20 19:16 Pulse 67 06/26/20 22:01 Resp 21 06/26/20 22:40 BP 110/66 06/26/20 22:01 Pulse Ox 97 06/26/20 22:10 COVID-19 Screening Have you,or household,traveled outside [place] in last 14 days?: No Had IN PERSON contact w/suspected or confirmed C-19 person: No
--- NOTE | 2020-06-27 | DI.RAD_ITS ---
EXAM: XR PORTABLE CHEST AP CLINICAL HISTORY: leucocytosis, weakness, concern for PNA TECHNIQUE: 2D digital imaging was performed. COMPARISON: No exams were available for comparison FINDINGS: MEDIASTINUM: Normal. HEART: Normal. PULMONARY VASCULATURE: Normal. LUNGS: Clear. PLEURAL SPACE: No pleural effusion or pneumothorax. BONE:Within normal limits for the patient's age. OTHER FINDINGS:Normal. IMPRESSION: No acute pulmonary findings. DATA REPOSITORY: RADIATION DOSE DELIVERED:
[2020-06-27] MEDS: Normal Saline 1,000 ML 125 ML IV ×2 (06:38→15:08)
[2020-06-27 07:02] LABS: Abs Immature Grans 0.06 10^3/uL (0.0-0.06); Absolute Eosinophil Count 0.13 10^3/uL (0.0-0.7); Absolute Lymphocyte Count 2.16 10^3/uL (1.2-3.4); Absolute Monocyte Count 0.97 10^3/uL (0.1-0.8); Absolute Neutrophil Count 9.22 10^3/uL (1.2-6.7); Basophils % 0.6; HCT 46.6 % (40.0-50.0); HGB 15.9 g/dL (13.5-17.5); Immature Grans % 0.5; Lymphocytes % 17.1; MCH 31.7 pg (27.0-33.0); MCHC 34.1 % (32.0-36.0); MPV 10.4 fL (8.0-11.0); Monocytes % 7.7; Neutrophils % 73.1; Nucleated RBC 0 %; Platelet Count 210 10^3/uL (130-400); RBC 5.01 10^6/uL (4.36-5.78); RDW 13.2 % (11.8-14.1); RDW-SD 45.3 fL; WBC 12.61 10^3/uL (4.4-10.8)
[2020-06-27 07:08] LABS: Absolute Basophil Count 0.08 10^3/uL (0.0-0.2)
[2020-06-27 07:25] VITALS: BP 131/81; PULSE 82; RESP 18; TEMP 35.4; O2SAT 99
[2020-06-27 07:26] LABS: ALT 53 U/L (16-63); AST 19 U/L (15-37); Albumin 3.3 g/dL (3.4-5.0); Alkaline Phosphatase 96 U/L (46-116); Anion Gap 12.2 mmol/L (3-11); BUN 78 mg/dL (7-18); Bilirubin, Total 0.7 mg/dL (0.2-1.0); CO2 19.8 mmol/L (21.0-32.0); CREATININE 2.25 mg/dL (0.70-1.30); Calcium 9.3 mg/dL (8.5-10.1); Chloride 109 mmol/L (98-107); Estimated GFR 27.99 (mL/min/1.73m2); Glucose 104 mg/dL (74-106); Potassium 5.5 mmol/L (3.5-5.1); Sodium 141 mmol/L (136-145); Total Protein 6.5 g/dL (6.4-8.2)
[2020-06-27] MEDS: amLODIPine 5 MG TAB 10 MG PO (08:07)
[2020-06-27] MEDS: Atorvastatin 20 MG TAB PO (08:07)
[2020-06-27] MEDS: Aspirin E.C. 81 MG TABEC PO (08:08)
[2020-06-27 08:34] LABS: Creatine Kinase 90 U/L (39-308); Magnesium 2.3 mg/dL (1.8-2.4)
--- NOTE | 2020-06-27 08:50 | IN_ITS ---
Date of service: 06/27/20 Time of Service: 08:50 PT Notes Visit Reasons: RIGHT HIP PAIN, UREMIA, KIKE Physical Therapy Inpatient Initial Evaluation Date: 06/27/2020 Referring Doctor: Dereck Joseph MD PT Orders: PT CONSULT: Fall safety assessment. Safety consult for DC. Eval for assistive device. Progressive debilitating right hip pain. Precautions: Fall. Standard. Activity as tolerated. Patient Profile/Admitting Diagnosis: Bruce is an 85-year-old male who presented to the ED on 06/26/2020 with complaints of right-sided hip pain. 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 Incision and drainage of the neck in childhood. Social History/Home Situation: Lives with in a private home with 3 steps to enter with bilateral rails. Independent with all ambulation activities using front wheeled walker for all indoor ambulation. He states that he has rarely gotten out of the house and has his help him with all his transportation needs. Equipment Owned/DME: Front wheeled walker. Subjective: Bruce emphasizes that the reason he was admitted here was because of his increasing right hip pain that has limited his ability to move inside the house. He reports having upset stomach issues that limited his ability to finish his breakfast earlier this morning. Wanted to take his time transitioning to sitting from supine due to fatigue. Objective: General Observation: Supine in bed. IV in the right UE. Mental Status: Alert and oriented X4 Pain: Reports 2/10 pain localized in the right hip. ROM: Right Upper Extremity: Shoulder Flexion allows up to 90 degrees. Shoulder abduction allows up to 90 degrees. Elbow flexion WFL. Wrist flexion WFL. Opening and closing of hand WFL. Left Upper Extremity: Shoulder Flexion allows up to 90 degrees. Shoulder abduction allows up to 90 degrees. Elbow flexion WFL. Wrist flexion WFL. Opening and closing of hand WFL. Right Lower Extremity: Hip flexion allows only up to 100 degrees with reports of pain at end range. Hip abduction WFL. Knee flexion WFL 40-100 degrees. Knee extension -40 degrees. Ankle dorsiflexion 10 degrees above neutral. Ankle plantarflexion WFL. Left Lower Extremity: Hip flexion WFL. Hip abduction WFL. Knee flexion WFL. Ankle dorsiflexion WFL. Ankle plantarflexion WFL. Strength: Right Upper Extremity: Shoulder flexors 3-/5. Shoulder abductors 3-/5. Elbow flexors 4/5. Elbow extensors 4/5. Legal Financial Specialist strong. Left Upper Extremity: Shoulder flexors 3-/5. Shoulder abductors 3-/5. Elbow flexors 4/5. Elbow extensors 4/5. Legal Financial Specialist strong. Right Lower Extremity: Hip flexors 3-/5. Hip abductors 3+/5. Knee flexors 3-/5. Knee extensors 3-/5. Ankle dorsiflexors 3-/5. Ankle plantarflexors 4-/5. Left Lower Extremity: Hip flexors 4-/5. Hip abductors 4-/5. Knee flexors 4-/5. Knee extensors 4-/5. Ankle dorsiflexors 4-/5. Ankle plantarflexors 4-/5. Sensation: Intact as to pain and pressure on bilateral lower extremities. Bed Mobility/Transfers: Supine to sit standby assist, uses rail for support Sit to supine standby assist, uses rail for support Sit to stand standby assist, required front wheel walker Stand to sit standby assist, required front wheel walker Bed to chair standby assist, required front wheel walker Chair to bed standby assist, required front wheel walker Gait: 25?2 with contact-guard assist using a front wheeled walker with step through heel?toe gait pattern but with pain in the low back area of about 4?5/10. Irma decreased. Balance: Static Sitting: Normal Dynamic Sitting: Normal Static Standing: Fair Dynamic Standing: Fair Special Tests: Mobility Limitations Standardized Measure [facility] 6 clicks Basic Mobility Inpatient Short Form: Raw Score: 15 CMS Score: 58% deficit 4-stage balance test: Unable to administer due to patient report of fatigue and discomfort. Will assess in the next sessions. Informed Consent/Education: Patient instructed in purpose of PT consult and plan of care. Assessment: Bruce demonstrates functional mobility decline requiring assist of one caregiver and the use of a mobility ADL prominence, difficulty with walking, decreased activity tolerance, and increased risk for falls due to admitting diagnoses. isa is an 85-year-old male who presented to the ED on 06/26/2020 with complaints of right-sided hip pain. 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 Patient presents with clinical signs and symptoms consistent with current/admitting diagnoses that have resulted to mobility limitations, gait instability, generalized weakness, and impairment of motor control as demonstrated by the following impairment level findings: 1. Low back pain and right hip pain aggravated with movement and weightbearing 2. Decreased strength to B LE major muscle groups 2. Impaired sitting/standing balance 3. Impaired activity tolerance 4. Limitation of joint range of motion in right hip Impairments are contributing to the following functional limitations: 1. Dependent bed mobility skills 2. Increased dependence with transfers 3. Inability to safely ambulate without assistive device and physical assistance 4. Increase completion time for mobility ADL performance 5. Increased fall risk 6. Inability to negotiate steps alone safely Patient is assessed as a 9712 complexity based on the following: History: 85-year-old male with impairment level findings, functional limitations, and past medical history as indicated above Examination: Demonstrable impairment in strength, balance, and mobility level with underlying impairments and functional limitations as documented above Presentation:Evolving Decision Makin moderate complexity Goals: Goals X1 week 1. Supine-Sit independent 2. Sit-Supine independent 3. Sit-Stand independent 4. Stand-Sit independent 5. Bed-Chair independent 6. Chair-Bed independent 7. Independent gait on level surface with use of least restrictive device for at least 300 feet without report of pain nor dyspnea 8. Independent stair negotiation while holding onto bilateral rails for at least 10 steps without report of pain nor dyspnea 9. Independent with home exercise program 10. Good static and dynamic standing balance/tolerance Plan of Care/Treatment Plan: 1-2x/day, 7 days/week x 1 week. Plan of care has been reviewed with the DIE MAKER providing the service under Physical Therapy direction. Initiate Physical Therapy intervention for strengthening, bed mobility, transfers, gait, stairs, balance training, use of assistive device. DISCHARGE RECOMMENDATIONS: SNF versus HH PT depending on functional outcomes from skilled PT services at this hospital. TREATMENT CODE/TIME: 82827 x 25 minutes beginning at 8:50 AM. Thank you for the opportunity to participate in the care of this patient. Francesca Solorio PT, DPT, CLT [facility] [place], [place]
[2020-06-27] MEDS: Cholecalciferol (Vitamin D3) 1,000 UNIT TAB 2000 UNITS PO (10:40)
--- NOTE | 2020-06-27 10:44 | PTTR_ITS ---
PT Notes Visit Reasons: RIGHT HIP PAIN, UREMIA, KIKE PT Inpatient Treatment Note Date: 06/27/2020 Precautions: Fall. Standard. Activity as tolerated. Subjective: Reports being very much fatigued from initial physical therapy evaluation early this morning. Objective: General Observation: Supine in bed. IV in the right UE. Mental Status: Alert and oriented X4 Pain: Reports 4-5/10 pain localized in the right hip. Bed Mobility/Transfers: Supine to sit standby assist, uses rail for support Sit to supine standby assist, uses rail for support Sit to stand standby assist, required front wheel walker Stand to sit standby assist, required front wheel walker Bed to chair standby assist, required front wheel walker Chair to bed standby assist, required front wheel walker Gait: 30 feet with contact-guard assist using a front wheeled walker with step through heel?toe gait pattern but with pain in the low back area of about 4?5/10. Irma decreased. Balance: Static Sitting: Normal Dynamic Sitting: Normal Static Standing: Fair Dynamic Standing: Fair Assessment: Bruce demonstrates functional mobility decline requiring assist of one caregiver and the use of a mobility ADL prominence, difficulty with walking, decreased activity tolerance, and increased risk for falls due to admitting diagnoses. isa is an 85-year-old male who presented to the ED on 06/26/2020 with complaints of right-sided hip pain. 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 Plan of Care/Treatment Plan: 1-2x/day, 7 days/week x 1 week. Plan of care has been reviewed with the GREIGE MENDER providing the service under Physical Therapy direction. Initiate Physical Therapy intervention for strengthening, bed mobility, transfers, gait, stairs, balance training, use of assistive device. DISCHARGE RECOMMENDATIONS: SNF versus HH PT depending on functional outcomes from skilled PT services at this hospital. TREATMENT CODE/TIME: 04184 x 23 minutes beginning at 11:52 AM.
[2020-06-27 14:16] LABS: Anion Gap 8.5 mmol/L (3-11); BUN 76 mg/dL (7-18); CO2 19.5 mmol/L (21.0-32.0); CREATININE 1.97 mg/dL (0.70-1.30); Calcium 8.7 mg/dL (8.5-10.1); Chloride 112 mmol/L (98-107); Estimated GFR 32.63 (mL/min/1.73m2); Glucose 130 mg/dL (74-106); Potassium 5.5 mmol/L (3.5-5.1); Sodium 140 mmol/L (136-145)
[2020-06-27 14:27] LABS: COVID-19 RT-PCR UVMMC Result Negative (Negative)
[2020-06-27] MEDS: Sodium Zirconium Cyclosilicate 10 GM PKT PO ×2 (14:32→21:49)
[2020-06-27] MEDS: Acetaminophen 325 MG TAB 650 MG PO (14:32)
--- NOTE | 2020-06-27 15:42 | W.PM.PROGNOT ---
Date of Service Date of service: 06/27/20 Time of Service: 15:42 Assessment and Plan Assessment and plan (1) Hip pain: Status: Acute Assessment and plan: Seems to be controlled with tylenol today. Awaiting orthopedic consult. Will add lidocaine patch (2) KIKE (acute kidney injury): Status: Acute Assessment and plan: Probably due to dehydration and lisinopril. Cardiorenal component also possible as the patient has edema of BLEs and is being ruled out for CHF. CPK ok. Kidneys looked good on CT. Continue IVF (at a decreased rate). (3) Leukocytosis: Status: Active Assessment and plan: I agree that this is due to hemoconcentration. Will rule out DVT BLEs as well. There is no obvious infection. Continue IVF and recheck in am. (4) Hyperkalemia: Status: Acute Assessment and plan: In setting of acute kidney injury and while on neo-i. Agree with continuing to hold lisinopril. Started on lokelma. Continue IVF. Recheck in am. Renal diet. (5) Elevated transaminase level: Status: Resolved Assessment and plan: Resolved with IVF. No further workup. (6) Hypertension: Status: Chronic Assessment and plan: Continue to hold lisinopril. On amlodipine, which too can cause KIKE and edema. Continue amlodipine for now and recheck Cr in am. (7) Cerebellar cerebrovascular accident (CVA) without late effect: Status: Chronic Assessment and plan: h/o ischemic CVA in 2012. Continue asa and statin. (8) Dehydration: Status: Acute Assessment and plan: As above - continue IVF at a decreased rate. (9) Edema of both lower extremities: Status: Acute Assessment and plan: R/o DVT. 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 (10) DVT prophylaxis: Status: Acute Assessment and plan: Lovenox (11) Discharge planning issues: Status: Acute Assessment and plan: Admit to inpatient status. Full code. Subjective Subjective Interval history since last seen: Mr Ceballos feels a lot better now. He states that his hip is hurting him a lot less and he started eating more. He states he is not thirsty, but has been drinking water. States edema BLEs has been there for months, but it hasn't bothered him. Endorses dizziness if he moves around too much. Denies chest pain, shortness of breath, nausea. Exam Narrative Exam Narrative: General: Pleasant, talkative elderly male, A&Ox3 HEENT: EOMI, dry MM Heart: RRR, no m/r/g Lungs: CTAB Abdomen: soft, nontender, nondistended Extremities: 2+ BLE edema 1/[address] BLEs, symmetric Objective Objective Clinical Data: Abnormal lab results 06/26/20 06/26/20 06/26/20 Range/Units 19:50 20:40 20:40 WBC 12.10 H (4.4-10.8) 10^3/uL Hct 51.3 H (40.0-50.0) % Absolute Neutrophils 8.92 H (1.2-6.7) 10^3/uL Absolute Monocytes (0.1-0.8) 10^3/uL Potassium 5.8 H (3.5-5.1) mmol/L Chloride (98-107) mmol/L Carbon Dioxide 16.1 L (21.0-32.0) mmol/L Anion Gap 15.9 H (3-11) mmol/L BUN 91 H* (7-18) mg/dL Creatinine 2.57 H (0.70-1.30) mg/dL Glucose 116 H (74-106) mg/dL ALT 64 H (16-63) U/L C-Reactive Protein 0.31 H (0.0-0.3) mg/dL Albumin (3.4-5.0) g/dL Urine Ketones (Negative) mg/dL 06/26/20 06/27/20 06/27/20 Range/Units 22:35 06:25 06:25 WBC 12.61 H (4.4-10.8) 10^3/uL Hct (40.0-50.0) % Absolute Neutrophils 9.22 H (1.2-6.7) 10^3/uL Absolute Monocytes 0.97 H (0.1-0.8) 10^3/uL Potassium 5.5 H (3.5-5.1) mmol/L Chloride 109 H (98-107) mmol/L Carbon Dioxide 19.8 L (21.0-32.0) mmol/L Anion Gap 12.2 H (3-11) mmol/L BUN 78 H (7-18) mg/dL Creatinine 2.25 H (0.70-1.30) mg/dL Glucose (74-106) mg/dL ALT (16-63) U/L C-Reactive Protein (0.0-0.3) mg/dL Albumin 3.3 L (3.4-5.0) g/dL Urine Ketones Trace H (Negative) mg/dL 06/27/20 Range/Units 14:00 WBC (4.4-10.8) 10^3/uL Hct (40.0-50.0) % Absolute Neutrophils (1.2-6.7) 10^3/uL Absolute Monocytes (0.1-0.8) 10^3/uL Potassium 5.5 H (3.5-5.1) mmol/L Chloride 112 H (98-107) mmol/L Carbon Dioxide 19.5 L (21.0-32.0) mmol/L Anion Gap (3-11) mmol/L BUN 76 H (7-18) mg/dL Creatinine 1.97 H (0.70-1.30) mg/dL Glucose 130 H (74-106) mg/dL ALT (16-63) U/L C-Reactive Protein (0.0-0.3) mg/dL Albumin (3.4-5.0) g/dL Urine Ketones (Negative) mg/dL Vital Signs Temperature 35.4 C L 06/27/20 07:25 Temperature Source Temporal Artery Scan 06/27/20 07:25 Pulse 82 06/27/20 07:25 Pulse Rhythm Regular 06/27/20 08:15 Pulse 75 06/26/20 23:31 Respiratory Rate 18 06/27/20 07:25 Respiratory Effort Non-Labored 06/27/20 08:15 Respiratory Depth Normal 06/27/20 08:15 Respiratory Pattern Normal 06/27/20 08:15 Blood Pressure 131/81 06/27/20 07:25 Blood Pressure Mean 74 06/26/20 23:31 Pulse Oximetry 99 06/27/20 07:25 Oxygen Delivery Method Room Air 06/27/20 07:25 Oxygen Flow Rate 0 06/27/20 07:25 Pain Level 4 06/27/20 14:32 Comment 06/26/20 23:50 Intake & Output 06/26/20 06/27/20 06/27/20 23:59 11:59 23:59 Intake Total 1000 / 1000 904.167 / 2144.167 1240 / 2144.167 Output Total 100 / 100 150 / 750 600 / 750 Balance 900 / 900 754.167 / 1394.167 640 / 1394.167 Weight 86.4 kg 86.5 kg Intake: IV 1000 / 1000 904.167 / 5042.272 6150 / 1904.167 Oral 240 / 240 Output: Urine 100 / 100 150 / 750 600 / 750 Other: Urine Color Pale Yellow Dark Fara Yellow Light Fara Urine Appearance Clear Clear Cloudy Urine Odor None Normal Voiding Methods Toilet Toilet Laboratory Results WBC 12.61 10^3/uL (4.4-10.8) H 06/27/20 06:25 RBC 5.01 10^6/uL (4.36-5.78) 06/27/20 06:25 Hgb 15.9 g/dL (13.5-17.5) 06/27/20 06:25 Hct 46.6 % (40.0-50.0) 06/27/20 06:25 MCV 93.0 fL (80-95) 06/27/20 06:25 MCH 31.7 pg (27.0-33.0) 06/27/20 06:25 MCHC 34.1 % (32.0-36.0) 06/27/20 06:25 RDW 13.2 % (11.8-14.1) 06/27/20 06:25 Plt Count 210 10^3/uL (130-400) 06/27/20 06:25 MPV 10.4 fL (8.0-11.0) 06/27/20 06:25 Immature Gran % 0.5 06/27/20 06:25 Neutrophils % 73.1 06/27/20 06:25 Lymphocytes % 17.1 06/27/20 06:25 Monocytes % 7.7 06/27/20 06:25 Eosinophils % 1.0 06/27/20 06:25 Basophils % 0.6 06/27/20 06:25 Nucleated RBC % 0 % 06/27/20 06:25 Absolute Neutrophils 9.22 10^3/uL (1.2-6.7) H 06/27/20 06:25 Absolute Lymphocytes 2.16 10^3/uL (1.2-3.4) 06/27/20 06:25 Absolute Monocytes 0.97 10^3/uL (0.1-0.8) H 06/27/20 06:25 Absolute Eosinophils 0.13 10^3/uL (0.0-0.7) 06/27/20 06:25 Absolute Basophils 0.08 10^3/uL (0.0-0.2) 06/27/20 06:25 ESR 16 mm/hr (1-20) 06/26/20 20:40 Sodium 140 mmol/L (136-145) 06/27/20 14:00 Potassium 5.5 mmol/L (3.5-5.1) H 06/27/20 14:00 Chloride 112 mmol/L (98-107) H 06/27/20 14:00 Carbon Dioxide 19.5 mmol/L (21.0-32.0) L 06/27/20 14:00 Anion Gap 8.5 mmol/L (3-11) 06/27/20 14:00 BUN 76 mg/dL (7-18) H 06/27/20 14:00 Creatinine 1.97 mg/dL (0.70-1.30) H 06/27/20 14:00 Estimated GFR/1.73 m2 32.63 (mL/min/1.73m2) 06/27/20 14:00 Glucose 130 mg/dL (74-106) H 06/27/20 14:00 Calcium 8.7 mg/dL (8.5-10.1) 06/27/20 14:00 Magnesium 2.3 mg/dL (1.8-2.4) 06/27/20 06:25 Total Bilirubin 0.7 mg/dL (0.2-1.0) 06/27/20 06:25 AST 19 U/L (15-37) 06/27/20 06:25 ALT 53 U/L (16-63) 06/27/20 06:25 Alkaline Phosphatase 96 U/L (46-116) 06/27/20 06:25 Creatine Kinase 90 U/L (39-308) 06/27/20 06:25 C-Reactive Protein 0.31 mg/dL (0.0-0.3) H 06/26/20 20:40 Total Protein 6.5 g/dL (6.4-8.2) 06/27/20 06:25 Albumin 3.3 g/dL (3.4-5.0) L 06/27/20 06:25 TSH 1.80 uIU/mL (0.36-3.74) 06/27/20 06:25 Urine Color Yellow (Yellow) 06/26/20 22:35 Urine Clarity Clear (Clear) 06/26/20 22:35 Urine pH 5.5 (5-8) 06/26/20 22:35 Ur Specific [place] 1.020 (1.005-1.025) 06/26/20 22:35 Urine Protein Negative mg/dL (Negative) 06/26/20 22:35 Urine Ketones Trace mg/dL (Negative) H 06/26/20 22:35 Urine Blood Negative (Negative) 06/26/20 22:35 Urine Nitrite Negative (Negative) 06/26/20 22:35 Urine Bilirubin Negative (Negative) 06/26/20 22:35 Urine Urobilinogen 0.2 EU/dL (Up TO 0.2) 06/26/20 22:35 Ur Leukocyte Esterase Negative (Negative) 06/26/20 22:35 Urine Glucose Negative mg/dL (Negative) 06/26/20 22:35 COVID-19 PCR Negative (Negative) 06/26/20 23:15 Nasopharyn COVID-19 PCR Not Applicable 06/26/20 23:15 Ref Test Perform Site [facility], [facility]–1983 lab 06/26/20 23:15 CXR: No acute pulmonary findings.
[2020-06-27 15:54] VITALS: BP 114/68; PULSE 65; RESP 15; TEMP 36.3; O2SAT 100
[2020-06-27] MEDS: Lidocaine 5% Patch 1 PATCH TP (18:44)
--- NOTE | 2020-06-27 19:19 | PDOC.CMIN ---
- If Service Date Differs Date of service: 06/27/20 Time of Service: 19:19 Care Management Initial Assess REASON FOR HOSPITALIZATION:: R Hip Pain, Uremia, KIKE PAST MEDICAL HISTORY/PAST SURGICAL HISTORY:: Medical History (Updated 06/27/20 @ 00:42 by Dereck Joseph). Arthritis (Acute). Cerebellar cerebrovascular accident (CVA) without late effect (Acute). 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 Hypertension (Chronic). Surgical History (Updated 06/27/20 @ 00:43 by Dereck Joseph). History of surgery (Active). onsillectomy and adenoidectomy in childhood. Incision and drainage of the neck in childhood. PREVIOUS FUNCTIONAL STATUS/SOCIAL/FAMILY SUPPORTS:: Bruce lives in [place] with his , Xenia, of 56 yrs. He is the oldest of 8 siblings. 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 He appears younger than his stated age, and attributes this to his awareness of health, healthy eating habits, and because he eats mushrooms of all kinds, which he forages locally. He has been independent at baseline until recently, as his pain has made him stay in bed more and more. He has traveled all over the world, and is very fond of his two [employer] dogs that he walks daily. CURRENT FUNCTIONAL STATUS:: Bruce was lying in bed when CM met with him. He spoke all about his many experiences traveling around the world, and also about traveling around [place], which he did for work. When asked what his current goals of care are, he reported that he would like to be able to walk as he did before (with a FWW, if necessary), and be able to perform his ADL's as he did previously. He reported that he did work with PT and OT today. CM also stated that he would likely meet with Palliative Care tomorrow, which he is agreeable to. CM will continue to follow. ADVANCE DIRECTIVES:: None on file. Has patient been provided with info about the portal/API?: No Did the patient sign up for the portal?: No CODE STATUS:: Full Code INSURANCE COVERAGE / FINANCIAL ISSUES:: MCR/ BCBS CURRENT HOME/COMMUNITY SERVICES/EQUIPMENT:: No current services in the community. Bruce does have a FWW at home. PRIMARY CARE PHYSICIAN:: Gabriel Todd POTENTIAL DISCHARGE NEEDS:: Evaluations for further needs, follow up appointments. PATIENT/FAMILY EDUCATION NEEDS:: Review discharge instructions regarding activity levels and medications, discussion of self care needs including ask me three. ANTICIPATED BARRIERS TO DISCHARGE:: None identified at this time. TRANSPORTATION:: Via private vehcile by his . PLAN:: Bruce is being evaluated by PT, who is recommending SNF vs HH PT/OT, depending on how he progresses during this admission. CM will go over options and discharge planning. His transport will be determined by disposition. He will follow up with his PCP and discharge plan of care. CM will continue to follow.
[2020-06-27 22:55] VITALS: BP 129/75; PULSE 68; RESP 18; TEMP 36.4; O2SAT 96
--- NOTE | 2020-06-28 | DI.US_ITS ---
APPROVED REPORT EXAM: Comprehensive 2D, Doppler, and color-flow Echocardiogram Patient Location: In-Patient Room/Bed: 229 Dairy Technician: Elba Wagner RDCS (AE) Indications: Edema Other Information Study Quality: Fair Conclusion Normal left ventricular wall thickness and chamber size. Estimated ejection fraction is 55 to 60%. There are no segmental wall motion abnormalities Normal right ventricular size and systolic function Normal left and right atrial size The aortic valve is trileaflet and mildly sclerotic with mild regurgitation Mild mitral annular calcification. Mild mitral regurgitation Pulmonic and tricuspid valves are structurally normal Mild tricuspid and trace pulmonic regurgitation. Estimated RVSP is normal at 22 mmHg Mildly dilated ascending aorta, 3.88 cm Wall motion Left Ventricle The left ventricle is normal size. The left ventricular systolic function is normal. The left ventric ular ejection fraction is within the normal range. There is normal left ventricular wall thickness. T here is normal LV segmental wall motion. There is no ventricular septal defect visualized. LVEF is 55 -60%. Right Ventricle The right ventricle is normal size. The right ventricular systolic function is normal. The RVSP is 22 .6mmHg. Atria The left atrium size is normal. The right atrium size is normal. The interatrial septum is intact wit h no evidence for an atrial septal defect. Aortic Valve The Aortic valve is sclerotic. Aortic valve is trileaflet. There is no aortic valvular stenosis. Mild aortic regurgitation. Mitral Valve Mild mitral annular calcification. No evidence of mitral valve stenosis. Mild mitral regurgitation. Tricuspid Valve The tricuspid valve is normal in structure. There is no tricuspid valve stenosis. Mild tricuspid regu rgitation. Pulmonic Valve The pulmonary valve is normal in structure. There is no pulmonic valvular stenosis. Trace pulmonic re gurgitation. Great Vessels The aortic root is normal in size. The ascending aorta is mildly dilated.3.88 cm Aortic arch is not w ell visualized. IVC is normal in size and collapses >50% with inspiration. Pericardium There is no pericardial effusion. 2D Dimensions IVSD d PLAX 0.80 cm M: 0.6-1.2 LV Vol A2C d MOD 81.3 mL LVPW d PLAX 0.93 cm M: 0.6 - 1.2 LV Vol A4C d MOD 73.6 mL LVID d PLAX 4.11 cm M: 4.2 - 5.8 LA vol/ BSA A2C s A-L 16.0 mL/m2 LVDs 3.00 cm M: 2.5 - 4.0 LA vol/ BSA A4C s A-L 21.4 mL/m2 Ao Root d 3.79 cm M: 3.1 - 3.7 LA Vol/ BSA Biplane s A-L 19.3 mL/m2 RA Area A4C 11.48 cm2 LA Area A4C s MOD 16.06 cm2 RA Vol/ BSA A4C s A-L 13.8 mL/m2 LA Area A2C s MOD 13.33 cm2 Ao Asc Diam d 3.88 cm M: 2.6 - 3.4 LV EF A4C MOD 56.0 % LV EF Teichholz 52.2 % LV EF A2C MOD 56.7 % LVEF (Pearson's) 56.65 % M: 52 - 72 LV EF Biplane MOD 56.7 % LV Volume 58.13 mL M: 62 - 150 SV 44.22 mL LV Volume Index 28.49 mL/m2 M: 34 - 74 SV Index 21.65 mL/m2 LV Vol Biplane MOD 78.0 mL FS 26.40 % M-Mode TAPSE 2.81 cm (M/F) >1.7 LV Diastology MV E' medial 0.070 (>0.07 m/s) E/A Ratio 0.7 LV E/e MED 6.20 (<14) MV E Vmax 0.44 (0.4-1.3 m/s) MV E' lateral 0.061 (>0.1 m/s) MV A Vmax 0.60 (0.4-1.3 m/s) LV E/e LAT 7.10 (<14) MV E/A Ratio 0.71 MV E/E' medial 6.25 MV E/E' lateral 7.12 Aortic Valve LVOT Area 3.59 cm2 AoV Area Vmax 2.59 cm2 LVOT Vmax 0.84 m/s AoV Area/ BSA (Vmax) 1.27 cm2/m2 LVOT Mean Rico. 0.56 m/s FALLON Mean Rico. 2.36 cm2 LVOT Peak Grad 2.9 mmHg FALLON Mean Rico. Index 1.15 cm2/m2 LVOT Mean Grad 1.5 mmHg AR DT 2054 msec LVOT VTI 0.157 m AR PHT 596 msec LVOT Diam s 2.10 cm AoV Vmax 1.17 m/s Velocity Ratio 0.71 AoV Mean Rico. 0.86 m/s AoV Peak Grad 5.5 mmHg LVOT SV 56.26 mL AoV Mean Grad 3.3 mmHg AoV VTI 0.246 m AoV Area VTI 2.29 cm2 AoV Area/ BSA (VTI) 1.12 cm/m2 Mitral Valve MV DT 411 (160-240 msec) MV PHT 119 msec MV Area PHT 1.85 cm2 Pulmonary Valve PV Vmax 1.05 (0.5-1.5 m/s) RVOT Peak Gr. 2.99 mmHg PV Peak Grad 4.4 mmHg RVOT Mean Gr. 1.35 mmHg PV Mean Grad 2.0 mmHg RVOT VTI 0.106 m PV VTI 0.162 m RVOT Vmax 0.86 m/s Tricuspid Valve TR Peak Grad 19.5 mmHg TR Vmax 2.21 m/s RA Pressure 3.00 mmHg RVSP (TR) 22.6 mmHg
--- NOTE | 2020-06-28 | DI.NM_ITS ---
EXAM: NM LUNG SCAN VENT PERF GRP CLINICAL HISTORY: DVT, pulm. hypertension, concern for PE. TECHNIQUE: Injected Dose: Ventilation: 34.1 mCi Tc-99m DTPA via inhalation Perfusion: 5.9 mCi Tc-99m MAA via IV COMPARISON: CR XR PORTABLE CHEST AP from 06/27/2020 FINDINGS: Chest X-Ray: Clear lungs. Perfusion: Normal. Ventilation:Normal IMPRESSION: 1. Low probability VQ examination. Modified PIOPED II criteria Probability Criteria High Two or more segments of V/Q mismatch Low Normal Perfusion, Non segmental perfusion abnormalitie s, pleural effusion in at least 1/3 of pleural cavity with no other defect Radiograph/perfusion matched defect in mid to upper lung confined to segment, one to three small segmental perfusion defects (<25% of segment) Perfusion defect smaller than corresponding radiogra phic lesion. Intermediate All other findings DATA REPOSITORY:
--- NOTE | 2020-06-28 | DI.US_ITS ---
EXAM: US EXTREMITY VENOUS BI CLINICAL HISTORY: BLE edema. TECHNIQUE: Bilateral lower extremity venous ultrasound performed using grayscale, color-flow, and sp ectral Doppler analysis. COMPARISON: No exams were available for comparison FINDINGS: The right common femoral, femoral and popliteal veins demonstrate normal compressibility, augmentatio n, and color Doppler. The right posterior tibial veins are patent. The saphenofemoral junctions are u nremarkable. There is no evidence of a Keita's cyst. The soft tissues are unremarkable. The left common femoral and femoral veins demonstrate normal compressibility, augmentation and color flow. Thrombus is seen extending from the right popliteal vein into the posterior tibialis veins. I t extends to approximate the level of the ankle. There is approximately 30 cm. There is no evidence of a Keita's cyst. The soft tissues are unremarkable. IMPRESSION: Right: Negative for DVT Left: DVT extending from the right popliteal vein into the calf and the posterior tibialis veins. DATA REPOSITORY:
[2020-06-28] MEDS: Normal Saline 1,000 ML 75 ML IV ×2 (01:23→19:11)
[2020-06-28] MEDS: Lidocaine Patch Removal 1 EACH TD (06:37)
[2020-06-28] MEDS: Sodium Zirconium Cyclosilicate 10 GM PKT PO (06:38)
[2020-06-28 07:38] LABS: Abs Immature Grans 0.04 10^3/uL (0.0-0.06); Absolute Basophil Count 0.06 10^3/uL (0.0-0.2); Absolute Eosinophil Count 0.49 10^3/uL (0.0-0.7); Absolute Lymphocyte Count 2.72 10^3/uL (1.2-3.4); Absolute Monocyte Count 0.71 10^3/uL (0.1-0.8); Absolute Neutrophil Count 5.27 10^3/uL (1.2-6.7); Basophils % 0.6; Eosinophils % 5.3; HCT 38.5 % (40.0-50.0); Immature Grans % 0.4; Lymphocytes % 29.3; MCH 31.5 pg (27.0-33.0); MCHC 34.3 % (32.0-36.0); MCV 91.9 fL (80-95); MPV 10.3 fL (8.0-11.0); Monocytes % 7.6; Neutrophils % 56.8; Nucleated RBC 0 %; Platelet Count 184 10^3/uL (130-400); RBC 4.19 10^6/uL (4.36-5.78); RDW 13.6 % (11.8-14.1); RDW-SD 46.5 fL; WBC 9.29 10^3/uL (4.4-10.8)
[2020-06-28 07:44] LABS: HGB 13.2 g/dL (13.5-17.5)
[2020-06-28 07:49] LABS: Anion Gap 12.9 mmol/L (3-11); BUN 54 mg/dL (7-18); CO2 17.1 mmol/L (21.0-32.0); CREATININE 1.66 mg/dL (0.70-1.30); Calcium 8.3 mg/dL (8.5-10.1); Chloride 109 mmol/L (98-107); Estimated GFR 39.76 (mL/min/1.73m2); Glucose 86 mg/dL (74-106); Magnesium 1.9 mg/dL (1.8-2.4); Potassium 4.2 mmol/L (3.5-5.1); Sodium 139 mmol/L (136-145)
[2020-06-28] MEDS: Aspirin E.C. 81 MG TABEC PO (09:34)
[2020-06-28] MEDS: Atorvastatin 20 MG TAB PO (09:34)
[2020-06-28] MEDS: Cholecalciferol (Vitamin D3) 1,000 UNIT TAB 2000 UNITS PO (09:35)
[2020-06-28] MEDS: amLODIPine 5 MG TAB 10 MG PO (09:35)
[2020-06-28] MEDS: Apixaban 5 MG TAB 10 MG PO ×2 (11:09→19:58)
--- NOTE | 2020-06-28 11:24 | PHA.REVIEW ---
Pharmacy Admission Review - Admission Clinical Review (Last Updated 06/26/20 @ 23:40 by Dereck Joseph) Edema of both lower extremities (Acute) Dehydration (Acute) Discharge planning issues (Acute) DVT prophylaxis (Acute) Hyperkalemia (Acute) Leukocytosis (Active 05/03/13) Hip pain (Acute) Uremia (Acute) KIKE (acute kidney injury) (Acute) No Known Allergies Allergy (Unverified 06/26/20 19:26) Height 5 ft 10 in Weight 88.1 kg Right hip pain, uremia, KIKE, NEW ONSET: DVT LEFT LEG - Renal Dosing Renal Dosing: BUN 54 mg/dL (7-18) H D 06/28/20 06:50 Creatinine 1.66 mg/dL (0.70-1.30) H 06/28/20 06:50 Medications needing adjustments: Reviewed (CrCl~34ml/min-improved since admission, no meds requiring adjustment) - Anticoagulation Anticoagulation: Hgb 13.2 g/dL (13.5-17.5) L D 06/28/20 06:50 Hct 38.5 % (40.0-50.0) L 06/28/20 06:50 Plt Count 184 10^3/uL (130-400) 06/28/20 06:50 Creatinine 1.66 mg/dL (0.70-1.30) H 06/28/20 06:50 Therapeutic Anticoagulation: Reviewed (Apixiban 10mg po BID for 7 days, followed by 5mg po BID for 3 months for DVT treatment) Medications: Apixaban - Relevant Labs ESR 16 mm/hr (1-20) 06/26/20 20:40 Sodium 139 mmol/L (136-145) 06/28/20 06:50 Potassium 4.2 mmol/L (3.5-5.1) D 06/28/20 06:50 Chloride 109 mmol/L (98-107) H 06/28/20 06:50 Magnesium 1.9 mg/dL (1.8-2.4) 06/28/20 06:50 C-Reactive Protein 0.31 mg/dL (0.0-0.3) H 06/26/20 20:40 - DM Control DM Control: Glucose 86 mg/dL (74-106) 06/28/20 06:50 Insulin Dosing: N/A - Heart Failure/SD EF%, OSCAR's, B-Blockers, Diuretics: Reviewed (Amlodipine 10mg po daily) - BP Control If elevated: Reviewed (WNL last few days, no vitals recorded today) - Qtc Review If Elevated: Reviewed (QTC 431) - IV to PO Switch IV Medications: N/A - Home Meds Home Med List reviewed: Reviewed (Lisinopril not ordered-held due to hyperkalemia & KIKE, BP stable) - Comments Comments/Follow Ups: pt c/o hip pain, Ortho consult placed, Lidocaine & APAP for pain. Watch for restart of Lisinopril that was held for hyperkalemia & KIKE, has had 3 doses of Lokelma-anticipate seeing that discontinued soon (NTE 48hrs). Today Ultrasound shows Left LE DVT-starting Apixiban
--- NOTE | 2020-06-28 12:34 | PT.INNT ---
Date of service: 06/28/20 Time of Service: 12:35 PT Notes Visit Reasons: RIGHT HIP PAIN, UREMIA, KIKE 06/28/2020 Patient refused morning PT session x1, then was unavailable x1. Will attempt to resume PT services this afternoon.
--- NOTE | 2020-06-28 13:11 | NS.NUTBLAN_ITS ---
Date of service: 06/28/20 Time of Service: 13:11 Nutritional Consult ASSESSMENT: 86 year old male admitted with KIKE, dehydration with hx of poor appetite for last couple of months with a 26lbs weight loss in last 6 months. Current BMI 27 which is wnl for age, but significantly lower than norm. Met with Bruce today, he reports drinking ensure or boost at home. cooks for him. 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 Currently on Renal Diet with adequate intake. Appears well nourished despite recent weight loss. Estimated Needs: [id number] kcal, 70-80 g protein, 2000 ml fluid. NUTRITIONAL DIAGNOSIS: non severe malnutrition in context of acute illness as evidenced by weight loss >10% in last 6 months as result of decreased appetite. INTERVENTION: Renal Diet CDM to work daily on meal preferences for optimal nutritional intake. MONITORING AND EVALUATION: weight, po intake, labs Time Spent in Nutritional Counseling and Treatment: 20 min spent face to face
--- NOTE | 2020-06-28 15:05 | PT.INTREAT ---
Date of service: 06/28/20 Time of Service: 15:06 PT Notes Visit Reasons: RIGHT HIP PAIN, UREMIA, KIKE Inpatient Physical Therapy Treatment Note [facility] Date: 06/28/2020 PRECAUTIONS: Fall SUBJECTIVE: Bruce is agreeable to participating in PT. He states that he is very tired and has been very busy with testing all day. OBJECTIVE: PAIN: Patient c/o R hip pain, increasing with gait and stair training BED MOBILITY/TRANSFERS Supine-sit: S with HOB flat Sit-supine: S with HOB flat Sit-stand: SBA Stand-sit: SBA Bed-Chair: SBA Chair-bed: SBA GAIT Assistive Device: FWW Weight bearing: Full Assist: CGA Distance: 60' x2 Deviation: Seated rest x1, increased R hip pain and back pain with gait training STAIRS: Up/down 3x4 using B rails and a step-to pattern following instruction, with supervision. ASSESSMENT: Patient tolerated gait and stair training with complaints of increased R hip discomfort. He demonstrates improved activity tolerance, tolerating a progression in gait distance, with FWW support and CGA. He would benefit from continued gait training and strengthening for improved ability to perform functional daily tasks at a more independent level. PLAN: Continue gait training, strengthening, and stair training TREATMENT CODE/TIME: 20 minutes; 80138
[2020-06-28 15:43] VITALS: BP 104/62; PULSE 70; RESP 18; TEMP 36.6; O2SAT 99
--- NOTE | 2020-06-28 16:31 | W.ORTHOCONSU ---
Date of service: 06/28/20 Time of Service: 16:31 History of Present Illness History of Present Illness Chief Complaint: Right posterior hip pain Narrative: This is an 85-year-old white male who describes the onset of some posterior right hip pain after walking his small dogs in late February. His pain was tolerable until he cut his lawn with a riding lawnmower. This seemed to make his pain worse. He had no radiation of pain below the knee. He tells me it was sore to lay on initially. Walking especially stairs was sitting bother him a lot. Finally presented to the emergency room on 06/26/2020 with increased severity in his hip pain. He was admitted for pain control physical therapy and rule out a septic hip as cause of his pain. He has had CT scans, plain x-ray films, and multiple lab tests drawn searching for the etiology of his hip pain. Curiously, his pain has resolved since he has been in the hospital. He has been walking down the saucedo with physical therapy without pain. He can lay on his right side without pain. Is not taking anything other than Tylenol at this time. Consults Consult date: 06/28/20 Assessment and Plan Assessment and plan (1) Hip pain: Status: Acute (2) Trochanteric bursitis, right hip: Status: Acute Assessment and plan: Assessment: His exam is pretty benign today. I suspect his pain was due to trochanteric bursitis on the right is now calmed down. I do not think he needs any further interventions for this. I do I discussed with him how to treat it should it recur once he is home. I advised him to apply ice to the greater trochanter 4 times a day for an hour each time. I also urged him to take Aleve on a regular basis if it starts to bother him. He has taken Advil in the past but it irritates his stomach, so I suggested Aleve instead. I think he may increase activities as tolerated. Return to see me as needed for flareups. 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 Incision and drainage of the neck in childhood. Social History (Updated 06/27/20 @ 00:45 by Dereck Joseph) Smoking/Tobacco Use Status: Never Alcohol Intake: current Alcohol Intake frequency: a few times a month Alcohol type: beer Drug use: Never Substance use type: does not use Do you feel safe at home: Yes Do you feel safe in your relationship?: Yes Additional Social history: Lives in [place] with his . 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 Exam Narrative Exam Narrative: Today demonstrates a smooth non-irritable range of motion of his right hip without any particular restriction. He does have localized tenderness over the greater trochanter on the right but not on his left hip. Flexion abduction external rotation of the right hip (Jamar) is not restricted and does not cause him any pain. He has normal sensation and circulation to the right lower extremity. Sed rate 16 mm an hour. C-reactive protein is 0.31. 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 scan failed to show any abnormalities around his hip. Results Last Vital Signs Temp 36.6 C 06/28/20 15:43 Pulse 70 06/28/20 15:43 Resp 18 06/28/20 15:43 BP 104/62 06/28/20 15:43 Pulse Ox 99 06/28/20 15:43 Labs Result diagrams: 06/28/20 06:50 06/28/20 06:50 Labs: Laboratory Results - last 24 hr 06/28/20 06/28/20 06:50 06:50 WBC 9.29 RBC 4.19 L Hgb 13.2 L D Hct 38.5 L MCV 91.9 MCH 31.5 MCHC 34.3 RDW 13.6 Plt Count 184 MPV 10.3 Immature Gran % 0.4 Neutrophils % 56.8 Lymphocytes % 29.3 Monocytes % 7.6 Eosinophils % 5.3 Basophils % 0.6 Nucleated RBC % 0 Absolute Neutrophils 5.27 Absolute Lymphocytes 2.72 Absolute Monocytes 0.71 Absolute Eosinophils 0.49 Absolute Basophils 0.06 Sodium 139 Potassium 4.2 D Chloride 109 H Carbon Dioxide 17.1 L Anion Gap 12.9 H BUN 54 H D Creatinine 1.66 H Estimated GFR/1.73 m2 39.76 Glucose 86 Calcium 8.3 L Magnesium 1.9
--- NOTE | 2020-06-28 16:40 | W.PM.OP ---
Operative Note Operative Note ESTIMATED BLOOD LOSS: 30
--- NOTE | 2020-06-28 17:06 | PDOC.CMPRO ---
- If Service Date Differs Date of service: 06/28/20 Time of Service: 17:06 Care Management Progress Note S/O: Bruce was lying in bed when CM met with him. Dr. Chilel was in the room discussing his plan of care. Per MD, his kidney function is better, but he does have a blood clot in his leg. She is recommending a malignancy work up as an outpatient, as a precaution. He will be on blood thinners for at least three months to treat the blood clot. Per PT, he is doing much better today, as he was able to walk down the sa[place] with no pain. CM discussed the possibility of HH PT, which he is agreeable to. CM will continue to follow. A: Bruce is an 85 year old male admitted to [facility] on 06/27/20 with R Hip Pain, Uremia, KIKE. P: Bruce is much improved today. He will remain at [facility] for IV fluids overnight, and may be ready for discharge tomorrow. PT may recommend HH PT, which he is agreeable to. He has not been driving since he has had this hip pain, and his does not drive, making it a hardship for them to get out of the house. He will be transported home via private vehicle by friends/family. He will follow up with his PCP and discharge plan of care. CM will continue to follow.
--- NOTE | 2020-06-28 17:37 | W.PM.PROGNOT ---
Date of Service Date of service: 06/28/20 Time of Service: 17:37 Assessment and Plan Assessment and plan (1) Acute kidney injury superimposed on chronic kidney disease: Status: Acute Assessment and plan: Probably due to dehydration and lisinopril. Much better today. Continue IVF overnight and recheck in am. (2) Deep venous thrombosis of left popliteal vein: Status: Acute Assessment and plan: VQ scan negative for PE. Started on eliquis. The patient has not had a colonoscopy and shoud undergo age-appropriate cancer screening and hypercoagulable workup as outpatient. Will refer to hematology as outpatient. (3) Hyperkalemia: Status: Resolved Assessment and plan: In setting of acute kidney injury and while on neo-i (now on hold). Resolved with lokelma. Recheck in am. Continue renal diet for now. (4) Leukocytosis: Status: Resolved Assessment and plan: I agree that this is due to hemoconcentration. Resolved with IVF alone. (5) Trochanteric bursitis, right hip: Status: Resolved Assessment and plan: If recurs, NSAIDS were recommended by orthopedics. (6) Elevated transaminase level: Status: Resolved Assessment and plan: Resolved with IVF. No further workup. (7) Hypertension: Status: Chronic Assessment and plan: Continue to hold lisinopril. Continue amlodipine for now. (8) Cerebellar cerebrovascular accident (CVA) without late effect: Status: Chronic Assessment and plan: h/o ischemic CVA in 2012. Continue asa and statin. (9) Dehydration: Status: Acute Assessment and plan: As above - continue IVF. (10) DVT prophylaxis: Status: Acute Assessment and plan: Lovenox (11) Discharge planning issues: Status: Acute Assessment and plan: Possible discharge home tomorrow if PT feels this is safe. Full code Subjective Subjective Interval history since last seen: Feels better. Has a better appetite today, has been able to walk with PT (60 feet x 2) and did some stairs. R hip pain is better. Denies dizziness, chest pain, shortness of breath, nausea. Exam Narrative Exam Narrative: General: Pleasant, talkative elderly male, A&Ox3 HEENT: EOMI, dry MM Heart: RRR, no m/r/g Lungs: CTAB Abdomen: soft, nontender, nondistended Extremities: 2+ BLE edema 1/[address] BLEs, symmetric Objective Objective Clinical Data: Abnormal lab results 06/28/20 06/28/20 Range/Units 06:50 06:50 RBC 4.19 L (4.36-5.78) 10^6/uL Hgb 13.2 L D (13.5-17.5) g/dL Hct 38.5 L (40.0-50.0) % Chloride 109 H (98-107) mmol/L Carbon Dioxide 17.1 L (21.0-32.0) mmol/L Anion Gap 12.9 H (3-11) mmol/L BUN 54 H D (7-18) mg/dL Creatinine 1.66 H (0.70-1.30) mg/dL Calcium 8.3 L (8.5-10.1) mg/dL Vital Signs Temperature 36.6 C 06/28/20 15:43 Temperature Source Tympanic 06/28/20 15:43 Pulse 70 06/28/20 15:43 Pulse Rhythm Regular 06/28/20 01:15 Pulse 75 06/26/20 23:31 Respiratory Rate 18 06/28/20 15:43 Respiratory Effort Non-Labored 06/28/20 01:15 Respiratory Depth Normal 06/28/20 09:35 Respiratory Pattern Normal 06/28/20 09:35 Blood Pressure 104/62 06/28/20 15:43 Blood Pressure Mean 74 06/26/20 23:31 Pulse Oximetry 99 06/28/20 15:43 Oxygen Delivery Method Room Air 06/28/20 15:43 Oxygen Flow Rate 0 06/28/20 15:43 Pain Level 0 06/28/20 15:43 Comment 06/26/20 23:50 Intake & Output 06/27/20 06/28/20 06/28/20 23:59 11:59 23:59 Intake Total 2249 / 3153.167 570 / 810 240 / 810 Output Total 1000 / 1150 Balance 1249.167 570 / 810 240 / 810 Weight 88.1 kg Intake: IV 2009.167 450 / 450 Oral 240 / 240 120 / 360 240 / 360 Output: Urine 1000 / 1150 Other: Urine Color Yellow Urine Appearance Clear Clear Urine Odor Normal Voiding Methods Toilet Laboratory Results WBC 9.29 10^3/uL (4.4-10.8) 06/28/20 06:50 RBC 4.19 10^6/uL (4.36-5.78) L 06/28/20 06:50 Hgb 13.2 g/dL (13.5-17.5) L D 06/28/20 06:50 Hct 38.5 % (40.0-50.0) L 06/28/20 06:50 MCV 91.9 fL (80-95) 06/28/20 06:50 MCH 31.5 pg (27.0-33.0) 06/28/20 06:50 MCHC 34.3 % (32.0-36.0) 06/28/20 06:50 RDW 13.6 % (11.8-14.1) 06/28/20 06:50 Plt Count 184 10^3/uL (130-400) 06/28/20 06:50 MPV 10.3 fL (8.0-11.0) 06/28/20 06:50 Immature Gran % 0.4 06/28/20 06:50 Neutrophils % 56.8 06/28/20 06:50 Lymphocytes % 29.3 06/28/20 06:50 Monocytes % 7.6 06/28/20 06:50 Eosinophils % 5.3 06/28/20 06:50 Basophils % 0.6 06/28/20 06:50 Nucleated RBC % 0 % 06/28/20 06:50 Absolute Neutrophils 5.27 10^3/uL (1.2-6.7) 06/28/20 06:50 Absolute Lymphocytes 2.72 10^3/uL (1.2-3.4) 06/28/20 06:50 Absolute Monocytes 0.71 10^3/uL (0.1-0.8) 06/28/20 06:50 Absolute Eosinophils 0.49 10^3/uL (0.0-0.7) 06/28/20 06:50 Absolute Basophils 0.06 10^3/uL (0.0-0.2) 06/28/20 06:50 ESR 16 mm/hr (1-20) 06/26/20 20:40 Sodium 139 mmol/L (136-145) 06/28/20 06:50 Potassium 4.2 mmol/L (3.5-5.1) D 06/28/20 06:50 Chloride 109 mmol/L (98-107) H 06/28/20 06:50 Carbon Dioxide 17.1 mmol/L (21.0-32.0) L 06/28/20 06:50 Anion Gap 12.9 mmol/L (3-11) H 06/28/20 06:50 BUN 54 mg/dL (7-18) H D 06/28/20 06:50 Creatinine 1.66 mg/dL (0.70-1.30) H 06/28/20 06:50 Estimated GFR/1.73 m2 39.76 (mL/min/1.73m2) 06/28/20 06:50 Glucose 86 mg/dL (74-106) 06/28/20 06:50 Calcium 8.3 mg/dL (8.5-10.1) L 06/28/20 06:50 Magnesium 1.9 mg/dL (1.8-2.4) 06/28/20 06:50 Total Bilirubin 0.7 mg/dL (0.2-1.0) 06/27/20 06:25 AST 19 U/L (15-37) 06/27/20 06:25 ALT 53 U/L (16-63) 06/27/20 06:25 Alkaline Phosphatase 96 U/L (46-116) 06/27/20 06:25 Creatine Kinase 90 U/L (39-308) 06/27/20 06:25 C-Reactive Protein 0.31 mg/dL (0.0-0.3) H 06/26/20 20:40 Total Protein 6.5 g/dL (6.4-8.2) 06/27/20 06:25 Albumin 3.3 g/dL (3.4-5.0) L 06/27/20 06:25 TSH 1.80 uIU/mL (0.36-3.74) 06/27/20 06:25 Urine Color Yellow (Yellow) 06/26/20 22:35 Urine Clarity Clear (Clear) 06/26/20 22:35 Urine pH 5.5 (5-8) 06/26/20 22:35 Ur Specific [place] 1.020 (1.005-1.025) 06/26/20 22:35 Urine Protein Negative mg/dL (Negative) 08/30/20 22:35 Urine Ketones Trace mg/dL (Negative) H 06/26/20 22:35 Urine Blood Negative (Negative) 06/26/20 22:35 Urine Nitrite Negative (Negative) 06/26/20 22:35 Urine Bilirubin Negative (Negative) 06/26/20 22:35 Urine Urobilinogen 0.2 EU/dL (Up TO 0.2) 06/26/20 22:35 Ur Leukocyte Esterase Negative (Negative) 06/26/20 22:35 Urine Glucose Negative mg/dL (Negative) 06/26/20 22:35 COVID-19 PCR Negative (Negative) 06/26/20 23:15 Nasopharyn COVID-19 PCR Not Applicable 06/26/20 23:15 Ref Test Perform Site [place] [facility] lab 06/26/20 23:15 Echo; Normal left ventricular wall thickness and chamber size. Estimated ejection fraction is 55 to 60%. There are no segmental wall motion abnormalities Normal right ventricular size and systolic function Normal left and right atrial size The aortic valve is trileaflet and mildly sclerotic with mild regurgitation Mild mitral annular calcification. Mild mitral regurgitation Pulmonic and tricuspid valves are structurally normal Mild tricuspid and trace pulmonic regurgitation. Estimated RVSP is normal at 22 mmHg Mildly dilated ascending aorta, 3.88 cm Venous doppler BLE's: Right: Negative for DVT Left: DVT extending from the popliteal vein into the calf and the posterior tibialis veins (the official read states R popliteal vein, but I discussed the findings with Dr Alvarado, and it's the LLE).
[2020-06-28] MEDS: Lidocaine 5% Patch 1 PATCH TP (17:42)
[2020-06-29 00:21] VITALS: BP 123/68; PULSE 72; RESP 14; TEMP 36.7; O2SAT 97
[2020-06-29] MEDS: Lidocaine Patch Removal 1 EACH TD (06:07)
[2020-06-29 06:49] LABS: Abs Immature Grans 0.04 10^3/uL (0.0-0.06); Absolute Basophil Count 0.06 10^3/uL (0.0-0.2); Absolute Eosinophil Count 0.44 10^3/uL (0.0-0.7); Absolute Lymphocyte Count 2.55 10^3/uL (1.2-3.4); Absolute Monocyte Count 0.66 10^3/uL (0.1-0.8); Absolute Neutrophil Count 4.83 10^3/uL (1.2-6.7); Basophils % 0.7; Eosinophils % 5.1; HCT 35.6 % (40.0-50.0); HGB 12.3 g/dL (13.5-17.5); Immature Grans % 0.5; Lymphocytes % 29.7; MCH 31.5 pg (27.0-33.0); MCHC 34.6 % (32.0-36.0); MCV 91.3 fL (80-95); MPV 10.3 fL (8.0-11.0); Monocytes % 7.7; Neutrophils % 56.3; Nucleated RBC 0 %; Platelet Count 187 10^3/uL (130-400); RDW 13.4 % (11.8-14.1); RDW-SD 45.7 fL; WBC 8.58 10^3/uL (4.4-10.8)
[2020-06-29 07:04] LABS: Anion Gap 12.1 mmol/L (3-11); BUN 42 mg/dL (7-18); CO2 17.9 mmol/L (21.0-32.0); CREATININE 1.61 mg/dL (0.70-1.30); Chloride 109 mmol/L (98-107); Estimated GFR 41.19 (mL/min/1.73m2); Glucose 89 mg/dL (74-106); Magnesium 1.9 mg/dL (1.8-2.4); Potassium 4.2 mmol/L (3.5-5.1); Sodium 139 mmol/L (136-145)
[2020-06-29 07:46] VITALS: BP 124/70; PULSE 60; RESP 17; TEMP 36.1; O2SAT 98
[2020-06-29] MEDS: Cholecalciferol (Vitamin D3) 1,000 UNIT TAB 2000 UNITS PO (07:52)
[2020-06-29] MEDS: Aspirin E.C. 81 MG TABEC PO (07:53)
[2020-06-29] MEDS: Apixaban 5 MG TAB 10 MG PO ×2 (07:53→20:02)
[2020-06-29] MEDS: amLODIPine 5 MG TAB 10 MG PO (07:53)
[2020-06-29] MEDS: Atorvastatin 20 MG TAB PO (07:53)
[2020-06-29] MEDS: Normal Saline 1,000 ML 75 ML IV (08:37)
[2020-06-29] MEDS: Acetaminophen 325 MG TAB 650 MG PO (09:40)
--- NOTE | 2020-06-29 11:37 | PGE_ITS ---
Date of Service Date of service: 06/29/20 Time of Service: 11:39 Assessment and Plan Assessment and plan (1) Acute kidney injury superimposed on chronic kidney disease: Status: Resolved Assessment and plan: Cr at baseline. D/C IVF, encourage PO fluids, recheck in am. BP is not requiring lisinopril, and he should stay off of neo-i indefinitely. (2) Deep venous thrombosis of left popliteal vein: Status: Acute Assessment and plan: VQ scan negative for PE. Continue eliquis. PT feels that he is not a risk to fall as long as he uses a walker. The patient has not had a colonoscopy and shoud undergo age-appropriate cancer screening and hypercoagulable workup as outpatient. Will refer to hematology as outpatient. (3) Anemia: Status: Acute Assessment and plan: Likely dilutional; hemoccult negative, but would recheck today now that he is on blood thinners. Also check B12/folate. Ferritin 488 on 05/19/2020. (4) Hyperkalemia: Status: Resolved Assessment and plan: In setting of acute kidney injury and while on neo-i (now on hold). Resolved with lokelma. Recheck BMP in am. (5) Leukocytosis: Status: Resolved Assessment and plan: due to hemoconcentration. Resolved with IVF alone. (6) Trochanteric bursitis, right hip: Status: Resolved Assessment and plan: First, we will schedule tylenol. If insufficient, would carefully add NSAIDS as the patient does have CKD. Continue working with PT. May require outpatient follow up with ortho. (7) Elevated transaminase level: Status: Resolved Assessment and plan: Resolved with IVF. No further workup. (8) Hypertension: Status: Chronic Assessment and plan: Continue to hold lisinopril. Continue amlodipine. BP is controlled. 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 Continue asa and statin. (10) Dehydration: Status: Resolved Assessment and plan: D/c IVF and recheck Cr in am (11) DVT prophylaxis: Status: Acute Assessment and plan: On therapeutic eliquis. (12) Discharge planning issues: Status: Acute Assessment and plan: Palliative care consult planned for today. Discharge home with home health PT/OT planned for tomorrow. Full code Subjective Subjective Interval history since last seen: Reports pain when ambulating with PT and running out of steam quickly. PT feels the patient likely could go home with home health PT/OT. The patient does not report dizziness, chest pain, shortness of breath, nausea. His appetite is improving. He does not feel ready to go home today but thinks he will be ready to go tomorrow. Exam Narrative Exam Narrative: General: Pleasant, talkative elderly male, A&Ox3 HEENT: EOMI, MMM Heart: RRR, no m/r/g Lungs: CTAB Abdomen: soft, nontender, nondistended Extremities: 2+ BLE edema 1/[address] BLEs, symmetric, unchanged Objective Objective Clinical Data: Abnormal lab results 06/29/20 06/29/20 Range/Units 06:15 06:15 RBC 3.90 L (4.36-5.78) 10^6/uL Hgb 12.3 L (13.5-17.5) g/dL Hct 35.6 L (40.0-50.0) % Chloride 109 H (98-107) mmol/L Carbon Dioxide 17.9 L (21.0-32.0) mmol/L Anion Gap 12.1 H (3-11) mmol/L BUN 42 H D (7-18) mg/dL Creatinine 1.61 H (0.70-1.30) mg/dL Calcium 8.0 L (8.5-10.1) mg/dL Vital Signs Temperature 36.1 C L 06/29/20 07:46 Temperature Source Tympanic 06/29/20 07:46 Pulse 60 06/29/20 07:46 Pulse Rhythm Regular 06/29/20 07:50 Pulse 75 06/26/20 23:31 Respiratory Rate 17 06/29/20 07:46 Respiratory Effort Non-Labored 06/29/20 07:50 Respiratory Depth Normal 06/29/20 07:50 Respiratory Pattern Normal 06/29/20 07:50 Blood Pressure 124/70 06/29/20 07:46 Blood Pressure Mean 74 06/26/20 23:31 Pulse Oximetry 98 06/29/20 07:46 Oxygen Delivery Method Room Air 06/29/20 07:46 Oxygen Flow Rate 0 06/29/20 07:46 Pain Level 2 06/29/20 09:40 Comment 06/26/20 23:50 Intake & Output 06/28/20 06/28/20 06/29/20 11:59 23:59 11:59 Intake Total 570 / 1370 800 / 1370 1935.25 Balance 570 / 1370 800 / 1370 1935. Weight 88.1 kg 89.3 kg Intake: IV 450 / 1010 560 / 1010 1216.25 / 1216.25 Oral 120 / 360 240 / 360 720 / 720 Other: Urine Appearance Clear Clear Comment pt states voided at 22:30 last noc but slept and no void on noc shift. Stool Occult Blood Negative Stool Size Small Stool Characteristics Formed Hard Voiding Methods Toilet Laboratory Results WBC 8.58 10^3/uL (4.4-10.8) 06/29/20 06:15 RBC 3.90 10^6/uL (4.36-5.78) L 06/29/20 06:15 Hgb 12.3 g/dL (13.5-17.5) L 06/29/20 06:15 Hct 35.6 % (40.0-50.0) L 06/29/20 06:15 MCV 91.3 fL (80-95) 06/29/20 06:15 MCH 31.5 pg (27.0-33.0) 06/29/20 06:15 MCHC 34.6 % (32.0-36.0) 06/29/20 06:15 RDW 13.4 % (11.8-14.1) 06/29/20 06:15 Plt Count 187 10^3/uL (130-400) 06/29/20 06:15 MPV 10.3 fL (8.0-11.0) 06/29/20 06:15 Immature Gran % 0.5 06/29/20 06:15 Neutrophils % 56.3 06/29/20 06:15 Lymphocytes % 29.7 06/29/20 06:15 Monocytes % 7.7 06/29/20 06:15 Eosinophils % 5.1 06/29/20 06:15 Basophils % 0.7 06/29/20 06:15 Nucleated RBC % 0 % 06/29/20 06:15 Absolute Neutrophils 4.83 10^3/uL (1.2-6.7) 06/29/20 06:15 Absolute Lymphocytes 2.55 10^3/uL (1.2-3.4) 06/29/20 06:15 Absolute Monocytes 0.66 10^3/uL (0.1-0.8) 06/29/20 06:15 Absolute Eosinophils 0.44 10^3/uL (0.0-0.7) 06/29/20 06:15 Absolute Basophils 0.06 10^3/uL (0.0-0.2) 06/29/20 06:15 ESR 16 mm/hr (1-20) 06/26/20 20:40 Sodium 139 mmol/L (136-145) 06/29/20 06:15 Potassium 4.2 mmol/L (3.5-5.1) 06/29/20 06:15 Chloride 109 mmol/L (98-107) H 06/29/20 06:15 Carbon Dioxide 17.9 mmol/L (21.0-32.0) L 06/29/20 06:15 Anion Gap 12.1 mmol/L (3-11) H 06/29/20 06:15 BUN 42 mg/dL (7-18) H D 06/29/20 06:15 Creatinine 1.61 mg/dL (0.70-1.30) H 06/29/20 06:15 Estimated GFR/1.73 m2 41.19 (mL/min/1.73m2) 06/29/20 06:15 Glucose 89 mg/dL (74-106) 06/29/20 06:15 Calcium 8.0 mg/dL (8.5-10.1) L 06/29/20 06:15 Magnesium 1.9 mg/dL (1.8-2.4) 06/29/20 06:15 Total Bilirubin 0.7 mg/dL (0.2-1.0) 06/27/20 06:25 AST 19 U/L (15-37) 06/27/20 06:25 ALT 53 U/L (16-63) 06/27/20 06:25 Alkaline Phosphatase 96 U/L (46-116) 06/27/20 06:25 Creatine Kinase 90 U/L (39-308) 06/27/20 06:25 C-Reactive Protein 0.31 mg/dL (0.0-0.3) H 06/26/20 20:40 Total Protein 6.5 g/dL (6.4-8.2) 06/27/20 06:25 Albumin 3.3 g/dL (3.4-5.0) L 06/27/20 06:25 TSH 1.80 uIU/mL (0.36-3.74) 06/27/20 06:25 Urine Color Yellow (Yellow) 06/26/20 22:35 Urine Clarity Clear (Clear) 06/26/20 22:35 Urine pH 5.5 (5-8) 06/26/20 22:35 Ur Specific [place] 1.020 (1.005-1.025) 06/26/20 22:35 Urine Protein Negative mg/dL (Negative) 06/26/20 22:35 Urine Ketones Trace mg/dL (Negative) H 06/26/20 22:35 Urine Blood Negative (Negative) 06/26/20 22:35 Urine Nitrite Negative (Negative) 06/26/20 22:35 Urine Bilirubin Negative (Negative) 06/26/20 22:35 Urine Urobilinogen 0.2 EU/dL (Up TO 0.2) 06/26/20 22:35 Ur Leukocyte Esterase Negative (Negative) 06/26/20 22:35 Urine Glucose Negative mg/dL (Negative) 06/26/20 22:35 COVID-19 PCR Negative (Negative) 06/26/20 23:15 Nasopharyn COVID-19 PCR Not Applicable 06/26/20 23:15 Ref Test Perform Site [facility] lab 06/26/20 23:15
--- NOTE | 2020-06-29 13:06 | PT.INTREAT ---
Date of service: 06/29/20 Time of Service: 13:07 PT Notes Visit Reasons: RIGHT HIP PAIN, UREMIA, KIKE Inpatient Physical Therapy Treatment Note [facility] Date: 06/29/2020 PRECAUTIONS: Fall SUBJECTIVE: Bruce states that he continues to experience R hip and buttock discomfort, specifically in seated position and with walking. OBJECTIVE: PAIN: Patient c/o R hip/buttock discomfort with gait training and in seated position. Patient rates his pain as a 2/10 at rest, and 6/10 following activity. BED MOBILITY/TRANSFERS Supine-sit: I with HOB flat Sit-supine: I with HOB flat Sit-stand: S Stand-sit: S Bed-Chair: SBA Chair-bed: SBA GAIT Assistive Device: FWW Weight bearing: Full Assist: SBA Distance: 60' x2 in a.m.; 120' in p.m. Deviation: Increased R hip/buttock pain in both a.m. and p.m., seated rest x1 in a.m.; no seated rest in p.m. THEREX: Patient completed a global core and LE strengthening program, in a supine position , as per flow sheet. C/o increased R hip/buttock pain with hip abduction exercise. STAIRS: Up/down 3x4 and 2x6 using B rails and a step-to pattern with SBA. ASSESSMENT: Patient tolerated session with complaints of increased R hip/buttock discomfort, worsening with activity and in seated position. He demonstrates improved activity tolerance, tolerating a progression in gait training, utilizing step-through gait pattern following instruction. He would benefit from continued gait training and strengthening for improved ability to perform functional daily tasks at a more independent level. PLAN: Continue gait training, strengthening, and stair training TREATMENT CODE/TIME: Session 1: 25 minutes; [id number] x2 Session 2: 30 minutes; [id number], [id number]
--- NOTE | 2020-06-29 15:48 | PDOC.CMPRO ---
- If Service Date Differs Date of service: 06/29/20 Time of Service: 15:48 Care Management Progress Note S/O: Bruce was resting when CM attempted to meet with him x2. CM spoke to his RN who stated that he did not have any known concerns. Per report, Bruce is nearing discharge readiness. CM alerted HH that he will likely discharge tomorrow with new HH PT. CM will continue to follow. A: Bruce is an 85 year old male admitted to [facility] on 06/27/20 with R Hip Pain, Uremia, KIKE. P: Bruce continues to improve. He will remain at [facility] overnight, and may be ready for discharge tomorrow. PT may recommend HH PT, which he is agreeable to. He has not been driving since he has had this hip pain, and his does not drive, making it a hardship for them to get out of the house. He will be transported home via private vehicle by friends/family. He will follow up with his PCP and discharge plan of care. CM will continue to follow.
[2020-06-29] MEDS: Lidocaine 5% Patch 1 PATCH TP (17:58)
[2020-06-29 18:33] VITALS: BP 115/75; PULSE 65; RESP 16; TEMP 35.8; O2SAT 99
[2020-06-29] MEDS: Acetaminophen 500 MG TAB 1000 MG PO (20:03)
[2020-06-30 00:03] VITALS: BP 116/65; PULSE 64; RESP 16; TEMP 36; O2SAT 98
[2020-06-30] MEDS: Lidocaine Patch Removal 1 EACH TD (05:55)
[2020-06-30 07:32] LABS: HCT 35.1 % (40.0-50.0); HGB 12.6 g/dL (13.5-17.5); MCH 31.8 pg (27.0-33.0); MCHC 35.9 % (32.0-36.0); MCV 88.6 fL (80-95); MPV 10.6 fL (8.0-11.0); Platelet Count 204 10^3/uL (130-400); RBC 3.96 10^6/uL (4.36-5.78); RDW 13.2 % (11.8-14.1); RDW-SD 43.3 fL; WBC 8.75 10^3/uL (4.4-10.8)
[2020-06-30 07:42] VITALS: BP 127/74; PULSE 68; RESP 18; TEMP 36.6; O2SAT 98
[2020-06-30 07:54] LABS: BUN 44 mg/dL (7-18); CREATININE 1.42 mg/dL (0.70-1.30); Chloride 111 mmol/L (98-107); Estimated GFR 47.61 (mL/min/1.73m2); Folate 6.5 ng/mL (8.6-20.0); Glucose 95 mg/dL (74-106); Magnesium 1.9 mg/dL (1.8-2.4); Potassium 4.3 mmol/L (3.5-5.1); Sodium 138 mmol/L (136-145); Vitamin B12 340 pg/mL (193-986)
[2020-06-30] MEDS: Cyanocobalamin 500 MCG TAB 1000 MCG PO (08:57)
[2020-06-30] MEDS: amLODIPine 5 MG TAB 10 MG PO (08:57)
[2020-06-30] MEDS: Apixaban 5 MG TAB 10 MG PO (08:57)
[2020-06-30] MEDS: Cholecalciferol (Vitamin D3) 1,000 UNIT TAB 2000 UNITS PO (08:57)
[2020-06-30] MEDS: Folic Acid 1 MG TAB PO (08:57)
[2020-06-30] MEDS: Atorvastatin 20 MG TAB PO (08:58)
[2020-06-30] MEDS: Multivitamin w/Minerals TAB 1 TAB PO (08:58)
[2020-06-30] MEDS: Aspirin E.C. 81 MG TABEC PO (08:58)
[2020-06-30] MEDS: Cyanocobalamin 1000 MCG/ML VIAL IM/SC (10:13)
[2020-06-30] MEDS: Acetaminophen 500 MG TAB 1000 MG PO (11:31)
--- NOTE | 2020-06-30 11:35 | W.PM.DS.N ---
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 (11) Dehydration: Status: Resolved (12) B12 deficiency: Status: Acute (13) Folate deficiency: Status: Acute (14) COVID-19 ruled out by laboratory testing: Status: Acute Discharge Plan Disposition Patient Disposition: HOME W/HOME HEALTH SERVICE Condition: Stable Discharge Details Chief Complaint: Orthopedic Clinical Impression: Hip pain, Uremia, KIKE (acute kidney injury) Reason For Visit: RIGHT HIP PAIN, UREMIA, KIKE Admit Date/Time: 06/27/20 16:15 Admit Provider: Dereck Joseph Attending Provider: Dereck Joseph Primary Care Provider: Gabriel Brooks ED Provider: Stoney Schafer Hospital Course Hospital Course: Mr Ceballos is an 85 year old male with PMHx of hypertension on lisinopril, CKD stage 3, hyperlipidemia, and prior CVA, who was a patient on [facility] hospitalist service from 06/26/2020 until 06/30/2020 for KIKE on CKD with hyperkalemia due to neo-i use and dehydration in addition to a new diagnosis of left lower extremity DVT in popliteal vein into the posterior tibialis vein. His lisinopril was held and he was put on IV fluids, with which his kidney function improved to better than baseline (Cr is 1.42 on discharge). He had negative renal imaging and did not have evidence of urinary retention by post-void residuals. His had bilateral lower extremity edema to ankles, and a venous doppler of lower extremities was obtained, demonstrating a left lower extremity DVT. He was initiated on eliquis. Hematology referral is being placed on discharge, but it does appear that the patient had a long period of immobility at home prior to presentation. He also requires age-appropriate cancer screening. He also reported a right hip pain on presentation which got a lot better just with rest and hydration. He was evaluated by Dr Young of orthopedics, who felt that the patient has a trochanteric bursitis. This is being treated with scheduled tylenol, lidocaine patches, and physical therapy. The pain appears controlled at this time. The patient is doing well enough with PT to be able to go home today with home health PT and OT. He met with Dr Zacarias of palliative care on this admission as well, with whom he should follow up as outpatient. The patient is medically stable for discharge with home health PT, OT, follow up with PCP, hematology for hypercoagulability workup, and with palliative care. Home Meds and New Rx's Prescriptions: New amlodipine 5 mg Tablet 10 mg PO DAILY Qty: 30 RF: 0 acetaminophen [Mapap Extra Strength] 500 mg Tablet 1,000 mg PO Q8H Qty: 90 RF: 0 Eliquis 5 mg Tablet See Rx Instructions .ROUTE .COMPLEX Qty: 60 RF: 0 folic acid 1 mg Tablet 1 mg PO DAILY Qty: 30 RF: 0 cyanocobalamin (vitamin B-12) 1,000 mcg capsule 1,000 mcg PO DAILY Qty: 30 RF: 0 lidocaine [Lidoderm] 5 % Adhesive Patch,Medicated 1 patch topical Q24H Qty: 30 RF: 0 Therems-M 27-0.4 mg Tablet 1 tab PO DAILY Qty: 30 RF: 0 Continued atorvastatin 20 mg Tablet 20 mg PO DAILY RF: 0 aspirin [Aspir-81] 81 mg Tablet,Delayed Release (Dr/Ec) 81 mg PO DAILY RF: 0 cholecalciferol (vitamin D3) [Vitamin D3] 50 mcg (2,000 unit) Capsule 2,000 unit PO DAILY RF: 0 Discontinued amlodipine 5 mg Tablet 5 mg PO DAILY RF: 0 lisinopril 40 mg Tablet 40 mg PO DAILY RF: 0 Discharge Instructions Instructions: Apixaban (By mouth), Dehydration (DC), Hip Bursitis (GEN), Deep Vein Thrombosis (DC) Additional Instructions: Return to the hospital with any fever, bleeding, chest pain, or shortness of breath. Drink plenty of fluids. Avoid NSAIDS while taking eliquis. Inform your PCP if your pain is uncontrolled. Follow up with your PCP within 1-2 weeks. Follow up with [facility] hematology. Care Plan Goals: Home with home health PT and OT. Referrals: HEMATOLOGY/ONC,[facility] [OTHER] - (LLE DVT) Denise Zacarias MD [ [facility] STAFF PHYSICIAN] - Gabriel Brooks MD [Primary Care Provider] - Activity:: Activity as Tolerated Equipment/Supplies:: No Equipment Needed Diet:: As Tolerated Discharge Orders Discharge Orders: Discharge Order (Routine); Ordered 06/30/20 Ordered By: Karissa Chilel DS: Summary Status at Discharge Functional status at discharge: uses cane/walker Overall status at discharge: patient is back to baseline Mental Status: mental status grossly normal Speech and Movement: speech and movement normal Mood: congruent mood Affect: normal affect Exam Narrative Exam Narrative: General: Pleasant, talkative elderly male, A&Ox3 HEENT: EOMI, MMM Heart: RRR, no m/r/g Lungs: CTAB Abdomen: soft, nontender, nondistended Extremities: 2+ BLE edema 1[address] BLEs, symmetric, unchanged Psych Mental Status: mental status grossly normal Speech and Movement: speech and movement normal Mood: congruent mood Affect: normal affect DS: Data Vitals/I&O Vitals and I&O: Vital Signs Temperature 36.6 C 06/30/20 07:42 Temperature Source Temporal Artery Scan 06/30/20 07:42 Pulse 68 06/30/20 07:42 Pulse Rhythm Regular 06/30/20 10:24 Pulse 75 06/26/20 23:31 Respiratory Rate 18 06/30/20 07:42 Respiratory Effort 06/30/20 10:24 Respiratory Depth Normal 06/30/20 10:24 Respiratory Pattern Normal 06/30/20 10:24 Blood Pressure 127/74 06/30/20 07:42 Blood Pressure Mean 74 06/26/20 23:31 Pulse Oximetry 98 06/30/20 07:42 Oxygen Delivery Method Room Air 06/30/20 07:42 Oxygen Flow Rate 0 06/30/20 07:42 Pain Level 3 06/30/20 11:31 Comment 06/26/20 23:50 Intake & Output 06/29/20 06/29/20 06/30/20 11:59 23:59 11:59 Intake Total 1935.25 / 2536.25 600 / 2536.25 Balance 1935.25 / 2536.25 600 / 2536.25 Weight 89.3 kg 88.9 kg Intake: IV 1216.25 / 1216.25 Oral 720 / 1320 600 / 1320 Other: Urine Color Yellow Yellow Pale Urine Appearance Clear Clear Clear Urine Odor None Comment Per pt he has voided in the toliet independently. He did not use the hat that was in the toliet. Stool Occult Blood Negative Positive Stool Size Small Large Stool Characteristics Formed Soft Hard Brown Voiding Methods Toilet Toilet Toilet Data Completed and Pending Completed studies during hospitalization [Text1]: CT abdomen/pelvis 06/26/2020: No acute abdominal or pelvic process. CXR 06/27/2020: No acute pulmonary findings. US echo 06/28/2020: Normal left ventricular wall thickness and chamber size. Estimated ejection fraction is 55 to 60%. There are no segmental wall motion abnormalities Normal right ventricular size and systolic function Normal left and right atrial size The aortic valve is trileaflet and mildly sclerotic with mild regurgitation Mild mitral annular calcification. Mild mitral regurgitation Pulmonic and tricuspid valves are structurally normal Mild tricuspid and trace pulmonic regurgitation. Estimated RVSP is normal at 22 mmHg Mildly dilated ascending aorta, 3.88 cm US venous BLEs 06/28/2020: Right: Negative for DVT Left: DVT extending from the popliteal vein into the calf and the posterior tibialis veins. 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 Incision and drainage of the neck in childhood. Social History (Updated 06/27/20 @ 00:45 by Dereck Joseph) Smoking/Tobacco Use Status: Never Alcohol Intake: current Alcohol Intake frequency: a few times a month Alcohol type: beer Drug use: Never Substance use type: does not use Do you feel safe at home: Yes Do you feel safe in your relationship?: Yes Additional Social history: Lives in [place] with his . 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
--- NOTE | 2020-06-30 12:12 | PDOC.HHF2F_ITS ---
Home Health Certification Home Health Certification: 1. Encounter Date and Reason I certify that MABLE ARGUETA was seen by Karissa Chilel on 06/30/20 and that I had a [id number] encounter with this patient that meets the physician face to face encounter requirements. 2. Clinical Findings Supporting Skilled Need and Homebound Status I certify that home health services are medically necessary, include either intermittent detention and/or physical/speech therapy, and that this patient is homebound in that absences from the home require considerable and taxing effort and are infrequent or of short duration, or are attributable to the need to receive medical care. [X] (a) Attached documentation from encounter provides clinical findings supporting skilled need and homebound status (including what assistance patient requires to leave the home). The encounter with the patient was in whole, or in part, for the following medical condition, which is the primary reason for home health care: RIGHT HIP PAIN, UREMIA, KIKE Group Home: Physical Therapy: Patient who is being discharged home on eliquis for a new diagnosis of DVT (likely due to immobility), had KIKE/dehyration, Hip pain due to trochanteric bursitis. Eval and treat. Occupational therapy: eval and treat Homebound: unable to leave home without assistance 3. Certification and Authentication I certify that I composed the above information based on my clinical judgement relating to this patient's medical condition and, if applicable, clinical findi ngs communicated to me by the NPP or inpatient physician who performed the Home Health Referral. All further orders will be obtained through ____Dr Brooks (Community Based Physician - PCP)
--- NOTE | 2020-06-30 17:42 | PDOC.CMDIS ---
- If Service Date Differs Date of service: 06/30/20 Time of Service: 17:42 LACE Index Scoring Tool - Questions: Length of Stay (in days): 4 - 6 Acuity (Admit via E.D.?): Yes Comorbidities: Mild Liver/Renal Disease E.D. Visits: 2 - Answers: Total Score: 11 Risk of Readmission: High Risk Care Management Discharge Reason for Hospitalization: R Hip Pain, Uremia, KIKE Discharge Plan: Bruce will return home with new PT and OT. He will be driven home by friends via private vehicle. He will follow up with his PCP and discharge plan of care. He is agreeable to going home. Patient/Family Education Needs: Review discharge instructions regarding activity levels and medications, discussion of self care needs including ask me three. Services Needed at Discharge: Home Health Care Services ([facility] PT, OT)
--- NOTE | 2020-06-30 21:54 | W.PALLCONSUL ---
Date of service: 06/30/20 History of Present Illness History of Present Illness Chief Complaint: increasing weakness, fraility, depression Narrative: Bruce is the caregiver for his chronically ill who suffers from dementia. He has been struggling at home, unable to provide the care she needs and neglecting his own health. He reports that prior to this admission, he was depressed, hopeless, resigned, in bed, not able to move. He notes that due to his immobility, he developed a DVT of his left leg. He has long-standing CKD. Since admission, his lisinopril was stopped. He thinks this medication change is making him feel better, but he is not sure. He is quite loquacious, and speaks tangentially about many topics simultaneously. He says he understands he needs to take blood-thinning agents when he gets home, for several months at least, and he needs to be careful about falling when on this medication. Consults Consult date: 06/30/20 Requesting physician: Karissa Chilel Assessment and Plan Assessment and plan (1) Caregiver stress: Status: Chronic Assessment and plan: Discusses stressors from COVID-19. loss of friend to Lino-Creuzfelt disease, ongoing burden of caring for his . He has lived in [place] x 50 years and most of his friends have . Feeling isolated. 's dementia prevents sense of support from her. (2) Depression: Status: Chronic Assessment and plan: Situational. Not on any medication, nor does he want to be at this time. He thinks if he gets more help and has more company, he will feel better. Likely true. 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 Pleasant and interesting, just hard to fontana in conversation. Seems lonely. (4) Palliative care patient: Status: Chronic Assessment and plan: Bruce is supposed to be discharged later today. Will see him at home in one month, or sooner, prn. (5) Failure to thrive: Status: Acute Assessment and plan: Relatively new. Said he's been managing fine until the last 3-4 months. Was not motivated to care for himself. Qualifiers: Failure to thrive age range: in adult Qualified Code(s): R62.7 - Adult failure to thrive Review of Systems Constitutional Constitutional: Reports as per HPI, Denies body ache(s), Reports headache(s) (Occasional twinge), Reports lethargy and Reports poor appetite Eyes Eyes: Denies blurry vision, Denies loss of vision and Denies other visual disturbances ENT Ears, Nose, Mouth, and Throat: Denies change in voice, Denies dysphagia, Denies vertigo, Reports headache(s) (Occasional twinge), Denies hoarseness, Denies mouth lesions and Denies sore throat Cardiovascular Cardiovascular: Denies chest pain, Reports lightheadedness, Denies palpitations and Denies dyspnea Respiratory Respiratory: Denies cough, Denies dyspnea and Denies wheezing Gastrointestinal Gastrointestinal: Denies abdominal pain, Reports belching, Denies dysphagia, Denies diarrhea, Reports nausea and Denies vomiting Genitourinary Genitourinary: Denies difficulty urinating, Denies urinary hesitancy and Denies urinary incontinence Musculoskeletal Musculoskeletal: Reports system reviewed and no additional complaints, except as documented Integumentary/Breasts Skin/Breast: Denies rash and Denies skin ulcer Comments: Large skin tag in groin Neurologic Neurologic: Denies abnormal speech, Denies confusion, Denies vertigo, Reports headache(s) (Occasional twinge), Denies localized weakness, Denies loss of vision, Denies radicular pain, Denies sensory deficit and Denies paresthesias Psychiatric Psychiatric: Denies confusion and Denies mood swings Comments: Mention stress of family members getting sick and friend this year, along with the pandemic Endocrine Endocrine: Denies palpitations Hematologic/Lymphatic Hematologic/Lymphatic: Denies easy bleeding and Denies easy bruising Allergic/Immunologic Allergic/Immunologic: Denies wheezing [facility] Medical History Anemia (Inactive) Arthritis (Acute) Caregiver stress (Acute) 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 (Active 05/03/13) Elevated transaminase level (Resolved) Erectile dysfunction (Active) Hip pain (Inactive) Hyperkalemia (Resolved) Hypertension (Chronic) Hypokalemia (Active 05/03/13) Overweight (Active) Palliative care patient (Acute) Sedentary lifestyle (Chronic) part of his caregiver stress and situational depression Uremia (Inactive) Surgical History History of surgery (Active) onsillectomy and adenoidectomy in childhood. Incision and drainage of the neck in childhood. 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 Current gender identity: male What is your relationship status?: How often do you talk on the phone with friends or family?: three or more times per week How often do you get together with friends or relatives?: once per week Panel score (0-1 are the most socially isolated patients): 2 What type of physical activity do you participate in: sedentary lifestyle Special miya needs: No Agree to transfusion: Yes Seatbelt use: always Working smoke detector in home: Yes Fire extinguisher in home: Yes Do you feel safe at home: Yes Do you feel safe in your relationship?: Yes Additional Social history: Lives in [place] with his . 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 He is his 's caregiver, getting exhausted, not caring for himself, leading to this admission. Needs home visits as an outpatient as he cannot bring his to appointments. Exam Narrative Exam Narrative: General: Alert and oriented x3. Appears comfortable lying in bed with legs extended. Pleasant and extremely talkative HEENT and EYES: Atraumatic. Conjunctive are clear with no icterus. Pupils equal round reactive to light with extraocular motions intact. . Moist mucous membranes.. Neck is supple with no masses or lymphadenopathy or thyromegaly. Lungs: Clear to auscultation bilaterally normal effort Cardiovascular: Regular rate and rhythm no murmurs gallops or rubs Abdomen: Active bowel sounds, soft, overweight, nontender nondistended. No masses or hepatosplenomegaly Extremities: Trace bilateral edema in the ankles. Legs nontender, No clear wasting. Skin: No rashes. Male-pattern balding. Neurologic: Cranial nerves II through XII grossly intact. Normal tone, no tremor. Normal movement of all 4 extremities. Normal sensation in 4 extremities to light touch. I did not see him ambulate given his feeling of instability. Psychiatric: Normal mood, though he did become emotional when discussing personal losses this year. Thought process somewhat tangential and difficult to redirect or interject, though his memory is good and his stories coherent. Results Last Vital Signs Temp 97.9 F 06/30/20 07:42 Pulse 68 06/30/20 07:42 Resp 18 06/30/20 07:42 BP 127/74 06/30/20 07:42 Pulse Ox 98 06/30/20 07:42 Labs Result diagrams: 06/30/20 07:00 06/30/20 07:00 Labs: Laboratory Results - last 24 hr 06/30/20 06/30/20 07:00 07:00 WBC 8.75 RBC 3.96 L Hgb 12.6 L Hct 35.1 L MCV 88.6 MCH 31.8 MCHC 35.9 RDW 13.2 Plt Count 204 MPV 10.6 Sodium 138 Potassium 4.3 Chloride 111 H Carbon Dioxide 18.0 L Anion Gap 9.0 BUN 44 H Creatinine 1.42 H Estimated GFR/1.73 m2 47.61 Glucose 95 Calcium 8.0 L Magnesium 1.9 Vitamin B12 340 Folate 6.5 L
--- NOTE | 2020-07-05 16:34 | PCNE_ITS ---
Date of service: 07/05/20 History of Present Illness History of Present Illness Chief Complaint: readmission after brief trial at home; falls; goals of care Narrative: I saw Bruce last week on the day he was discharged. He has returned with GI bleeding, after having been started on anti-coagulants at discharge. He reports he fell at least twice while at home. He tells me that yesterday he has black stools, but has not had any today. He's been without abdominal pain throughout this past week. He had been started on apixiban at discharge. He does not take any additional OTC NSAIDs, though he uses acetaminophen regularly at 500 mg tid. He describes his falls more as crumples. He explains that he is alone today because his is with their daughter. Their daughter drove up from [place], [place], where she lives, to pecan picker his and their dogs. Bruce recognizes that he will not be able to go home directly from this admission. He is looking at going to rehab to strengthen. Consults Consult date: 07/05/20 Assessment and Plan Assessment and plan (1) Sedentary lifestyle: Status: Chronic Assessment and plan: Encouraged him to have home PT and OT at discharge. He needs to get up and walk around his house. Lack of activity exacerbating his depression. Strongly support him moving to [place] with his so he can exercise without worrying about her safety. (2) Caregiver stress: Status: Chronic Assessment and plan: unable to hold a conversation. He is lonely. He needs time to himself. Unable to take care of her on his own anymore. Daughter working on plans to move them closer to her in [place]. (3) Eccentric personality: Status: Chronic Assessment and plan: Very talkative. Hard to keep on track. Not sure if loneliness, some cognitive dysfunction, or personality. Does not appear to retain information well. (4) GI bleeding: Status: Chronic Assessment and plan: initiated by being on anti-coagulants suspected to resolve off of them Qualifiers: GI bleed type/associated pathology: melena Qualified Code(s): K92.1 - Melena (5) Weakness: Status: Chronic Assessment and plan: Needs to get back to his prior level of activity. Depression had led to his inactivity, too. (6) Goals of care, counseling/discussion: Status: Acute Assessment and plan: He did not want to discuss his CODE status without his daughter being present. Review of Systems Constitutional Constitutional: Denies fever(s), Denies headache(s), Reports lethargy, Denies night sweats, Reports poor appetite and Denies weight loss Eyes Eyes: Denies blurry vision ENT Ears, Nose, Mouth, and Throat: Denies dysphagia, Denies headache(s) and Denies hoarseness Cardiovascular Cardiovascular: Denies chest pain, Denies chest pain at rest, Denies irregular heart rhythm, Denies palpitations and Denies dyspnea Respiratory Respiratory: Denies cough and Denies dyspnea Gastrointestinal Gastrointestinal: Reports as per HPI and Denies dysphagia Genitourinary Genitourinary: Denies hematuria and Reports difficulty urinating Musculoskeletal Musculoskeletal: Reports system reviewed and no additional complaints, except as documented Integumentary/Breasts Skin/Breast: Reports system reviewed and no additional complaints, except as documented Neurologic Neurologic: Reports system reviewed and no additional complaints, except as documented and Denies headache(s) Endocrine Endocrine: Denies palpitations [facility] Medical History (Updated 08/25/20 @ 06:33 by Denise Zacarias MD) Anemia Arthritis Caregiver stress 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 (05/03/13) Elevated transaminase level Erectile dysfunction Failure to thrive Goals of care, counseling/discussion Heme positive stool Hip pain Hyperkalemia Hypertension Hypokalemia (05/03/13) Overweight Palliative care patient Sedentary lifestyle Uremia Verbosity and circumstantial detail obscuring reason for contact Surgical History History of surgery onsillectomy and adenoidectomy in childhood. Incision and drainage of the neck in childhood. Family History (Updated 08/05/20 @ 08:24 by Denise Zacarias MD) Daughter No problems noted. 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 Pets and animals: Yes (wai parnell x 2) Pets and animals: dog(s) Current gender identity: male What is your relationship status?: How often do you talk on the phone with friends or family?: three or more times per week How often do you get together with friends or relatives?: once per week Panel score (0-1 are the most socially isolated patients): 2 What type of physical activity do you participate in: walking and sedentary lifestyle Duration: 15-30 minutes/day Frequency: daily Special miya needs: No Agree to transfusion: Yes Seatbelt use: always Working smoke detector in home: Yes Fire extinguisher in home: Yes Do you feel safe at home: Yes Do you feel safe in your relationship?: Yes Additional Social history: Lives in [place] with his . 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 with moderate dementia. SHe needs help with ADLs. Needs home visits as an outpatient as he cannot bring his to appointments. Exam Const General: cooperative, comfortable and no acute distress Nutritional Appearance: obese Orientation: alert, awake and oriented x3 HENMT Head: normal to inspection and atraumatic Mouth: moist mucous membranes Resp Effort & Inspection: normal respiratory effort and able to speak in complete sentences Auscultation: clear to auscultation bilaterally Cardio Rate: regular rate Rhythm: regular rhythm GI Inspection: normal to inspection Palpation: soft Auscultation: normal bowel sounds Back/Spine/Pelvis Back: no CVA tenderness Skin General skin exam: no rashes or lesions noted Neuro General: patient alert, patient awake, patient oriented x3 and moves all extremities Cognition: normal cognition Speech: speech normal Extrem General: abnormal to inspection and edema (non pitting) Laterality: bilateral Psych Appearance: grossly normal Mental Status: mental status grossly normal Speech and Movement: speech and movement normal Mood: congruent mood Affect: normal affect Attitude: cooperative Thought Content: normal Results Last Vital Signs Temp 97.9 F 06/30/20 07:42 Pulse 68 06/30/20 07:42 Resp 18 06/30/20 07:42 BP 127/74 09/03/20 07:42 Pulse Ox 98 06/30/20 07:42 Labs Result diagrams: 06/30/20 07:00 06/30/20 07:00
== END 2020-06-30 12:55 | disposition home health service (06) | DRG 683 ==
LOC: ER 23:04 → MS 23:43
PROVIDERS: Internal Medicine; Admitting Provider Family Medicine; Emergency Provider Physician Assistant; PCP Internal Medicine; Visit Provider Family Medicine
DX: N17.9 Acute kidney failure, unspecified (principal); I82.432 Acute embolism and thrombosis of left popliteal vein; D64.9 Anemia, unspecified; E87.5 Hyperkalemia; M70.61 Trochanteric bursitis, right hip; I12.9 Hypertensive chronic kidney disease with stage 1 through stage 4 chronic kidney disease, or unspecified chronic kidney disease; Z86.73 Personal history of transient ischemic attack (TIA), and cerebral infarction without residual deficits; E86.0 Dehydration; Z11.59 Encounter for screening for other viral diseases; E53.8 Deficiency of other specified B group vitamins; N18.3 Chronic kidney disease, stage 3 (moderate); E78.5 Hyperlipidemia, unspecified; R74.0 Nonspecific elevation of levels of transaminase and lactic acid dehydrogenase [LDH]; M16.0 Bilateral primary osteoarthritis of hip
CPT/HCPCS: 36415; 51701; 78582; 80048; 80053; 82550; 85027; 85652; 93005; 93306; 96360; 96361; 97110; 97162; 97530; 99219; 99221; 99232; 99239; 99252; 99254; 99285; U0003; 71045; 74176; 81003; 82607; 82746; 83735; 84443; 85025; 86140; 93010; 93970; G0378; J3420; J3490

== ENCOUNTER 2020-07-01 22:50 | Emergency (ER) | payer MEDICARE, BC, SELFPAY ==
--- NOTE | 2020-07-01 00:05 | DI.CT_ITS ---
EXAM: CT HEAD CERVICAL SPINE WO CLINICAL HISTORY: fall, on elequis. TECHNIQUE: Imaging Protocol: Axial computed tomography images with coronal and sagittal reformatted images were created and reviewed COMPARISON: CT HEAD WITHOUT CONTRAST from 05/03/2013 FINDINGS: Head CT Ventricles and Extra axial spaces: Normal in size and morphology for the patient's age. Hemorrhage: None. Cerebral parenchyma: Mild atrophy and white matter changes of small vessel disease. Old right cerebe llar infarct. Midline shift: None. Brainstem/Cerebellum: Normal. Calvarium: Normal. Visualized Paranasal sinuses/Mastoids: Clear. Cervical Spine CT BONES: Vertebral body heights are maintained. Alignment is normal. There is no evidence of acute frac ture. Degenerative disc changes and facet degenerative changes are seen . there is partial fusion between C3 and C4. SOFT TISSUES: No paraspinal hematoma. The airway appears intact. No pneumothorax is seen at the lung apices. IMPRESSION: Head CT: No acute abnormality. C-spine CT: Degenerative changes, no acute abnormality. Incidental RADIATION DOSE DELIVERED: LINK-TO-SR Total DLP DATA REPOSITORY: All CT scans at this facility are submitted to the National Radiology Data Registry (NRDR) Dose Index Registry (DIR) with the [employer] (ACR). RADIATION OPTIMIZATION: All CT scans at this facility use at least one of these dose optimization te chniques: automated exposure control; mA and/or kV adjustment per patient size (includes targeted exa ms where dose is matched to clinical indication); or iterative reconstruction.
[2020-07-01 22:43] VITALS: BP 135/73; PULSE 110; RESP 20; TEMP 36.8; O2SAT 97
--- NOTE | 2020-07-01 22:45 | RT.EKG_ITS ---
APPROVED REPORT Exam: Resting ECG Patient Location: E HR:106 bpm ECG Measurements Heart Rate 106 AXIS OK 203 P 40 QRSd 82 QRS -8 QT 322 T 76 QTc 429 Conclusion EKG 20: 59 Rate 106, sinus tachycardia, QTC 429, QRS 82, nonspecific T wave changes in V2, without significant d epression. No reciprocal elevations, no evidence of STEMI. Aside for the nonspecific change in V2 n o other acute change compared to prior EKG on 06/26/2020
[2020-07-01 22:52] VITALS: RESP 20
--- NOTE | 2020-07-01 23:31 | W.ED.GENAD ---
Discharge Plan Disposition Patient Disposition: HOME Condition: Good Discharge Details Chief Complaint: Dizzy/Sync Clinical Impression: Fall Primary Care Provider: Gabriel Brooks ED Provider: Travis Andersen Home Meds and New Rx's Prescriptions: Continued atorvastatin 20 mg Tablet 20 mg PO DAILY RF: 0 aspirin [Aspir-81] 81 mg Tablet,Delayed Release (Dr/Ec) 81 mg PO DAILY RF: 0 cholecalciferol (vitamin D3) [Vitamin D3] 50 mcg (2,000 unit) Capsule 2,000 unit PO DAILY RF: 0 amlodipine 5 mg Tablet 10 mg PO DAILY Qty: 30 RF: 0 acetaminophen [Mapap Extra Strength] 500 mg Tablet 1,000 mg PO Q8H Qty: 90 RF: 0 Eliquis 5 mg Tablet See Rx Instructions .ROUTE .COMPLEX Qty: 60 RF: 0 folic acid 1 mg Tablet 1 mg PO DAILY Qty: 30 RF: 0 cyanocobalamin (vitamin B-12) 1,000 mcg capsule 1,000 mcg PO DAILY Qty: 30 RF: 0 lidocaine [Lidoderm] 5 % Adhesive Patch,Medicated 1 patch topical Q24H Qty: 30 RF: 0 Therems-M 27-0.4 mg Tablet 1 tab PO DAILY Qty: 30 RF: 0 Discharge Instructions Instructions: Fall Prevention (ED) Additional Instructions: Please continue with your home PT and OT. If you notice any worsening of your symptoms, or any new symptoms such as vomiting, diarrhea, fever, chills, shortness of breath, chest pain, numbness, weakness, or fainting , please return immediately to the emergency department for reevaluation. Please follow up with your primary care provider as soon as possible for reassessment and reevaluation. As always, it was a pleasure participating in your medical care today. Referrals: Gabriel Brooks MD [Primary Care Provider] - Medical Decision Making This is a pleasant 85-year-old male with a past medical history of hypertension, CKD stage 3, hyperlipidemia, and prior CVA, DVT of the left popliteal vein, currently on Eliquis who is just discharged from the hospital is greater than 24 hours ago, presents today for evaluation of fall. Per EMS and the patient he got up out of bed to go to the bathroom, felt weak, and lost balance. He fell believes he may have hit his head. He was on the ground until EMS arrived where he was helped up, when he was gotten up into the chair he, per EMS, was quite out of it for about 20 seconds and then his mood disposition totally normalized. Currently the patient denies any pain that is new in his hip back chest abdomen head or neck. He denies any new numbness or tingling. He does state that he feels that he is continued weakness of his right lower extremity which she states is been unchanged since he arrived in the hospital over 5 days ago. Currently the patient has no other complaints at this time. No other modifying factors. He states he feels well currently. Physical exam demonstrates no evidence of significant trauma, no midline cervical spine tenderness, no focal neurologic deficit. He does have slight weakness of the right hip flexion compared to the left. He denies any other complaints at this time. No other concerning abnormalities on exam. Due to his multiple medical problems seems that his scenario was secondary to mechanical fall however we will evaluate for laboratory abnormality, because of his anticoagulation we will get a CT scan of the head neck. We will monitor closely and reassess. 1:22 AM Patient's laboratory work-up is returned, mild white count sparkle to previous levels, sodium potassium normal, creatinine at baseline, troponin normal, TSH normal, CT scan of the head neck is negative for acute process per virtual radiology. Repeat physical exam continues to demonstrate no evidence of significant traumatic abnormality, no evidence of acute neurologic deficit. Patient continues to feel well. Discussed continued observation versus discharge and the patient feels comfortable going home. Unfortunately the patient's does have memory issues, does not drive. We did contact [facility], they are willing to drive the patient back. The patient feeling well, work-up showing no evidence of acute life-threatening etiology, CT scan negative for acute bleed, and the patient having good resources at home including PT and OT that was set up on his discharge 24 hours ago the feel discharge appropriate at this time clinically. I have extensively reviewed the treatment plan and discharge instructions with the patient. I have addressed all patient concerns at this time. The patient was made aware of what symptoms to monitor for that would warrant a return to the emergency department. Discussed the plan with the patient, they demonstrate verbal understanding and agreement with our assessment and plan at this time. EKG 20: 59 Rate 106, sinus tachycardia, QTC 429, QRS 82, nonspecific T wave changes in V2, without significant depression. No reciprocal elevations, no evidence of STEMI. Aside for the nonspecific change in V2 no other acute change compared to prior EKG on 06/26/2020 FINDINGS: Brain: Chronic right inferior cerebellar infarct. No hemorrhage. Unremarkable white matter. No mass effect. Ventricles: Normal. No ventriculomegaly. Bones/joints: Unremarkable. No acute fracture. Sinuses: Visualized sinuses are unremarkable. No fluid levels. Mastoid air cells: Visualized mastoid air cells are well aerated. Soft tissues: Unremarkable. IMPRESSION: No acute intracranial abnormality. FINDINGS: Vertebrae: No acute fracture. Normal alignment. Multilevel degenerative disk disease and facet arthropathy with neuroforaminal and canal stenosis.. Soft tissues: Unremarkable. Lungs: Lung apices are normal. IMPRESSION: No acute findings. Thank you for allowing us to participate in the care of your patient. Dictated and Authenticated by: Nicholas Deluna MD 07/02/2020 12:12 AM Eastern Time ([place] & [place]) HPI General Date/Time Provider Initiated Documentation: 07/01/20 23:03. HPI Narrative: This is a pleasant 85-year-old male with a past medical history of hypertension, CKD stage 3, hyperlipidemia, and prior CVA, DVT of the left popliteal vein, currently on Eliquis who is just discharged from the hospital is greater than 24 hours ago, presents today for evaluation of fall. Per EMS and the patient he got up out of bed to go to the bathroom, felt weak, and lost balance. He fell believes he may have hit his head. He was on the ground until EMS arrived where he was helped up, when he was gotten up into the chair he, per EMS, was quite out of it for about 20 seconds and then his mood disposition totally normalized. Currently the patient denies any pain that is new in his hip back chest abdomen head or neck. He denies any new numbness or tingling. He does state that he feels that he is continued weakness of his right lower extremity which she states is been unchanged since he arrived in the hospital over 5 days ago. Currently the patient has no other complaints at this time. No other modifying factors. He states he feels well. Related Data Home Medications Medication Instructions Recorded Confirmed aspirin [Aspir-81] 81 mg PO DAILY 05/31/20 06/26/20 atorvastatin 20 mg PO DAILY 05/31/20 06/26/20 cholecalciferol (vitamin D3) 2,000 unit PO DAILY 05/31/20 06/26/20 [Vitamin D3] Eliquis See Rx Instructions .ROUTE 06/30/20 .COMPLEX #60 tab Therems-M 1 tab PO DAILY #30 tab 06/30/20 acetaminophen [Mapap Extra 1,000 mg PO Q8H #90 tab 06/30/20 Strength] amlodipine 10 mg PO DAILY #30 tab 06/30/20 cyanocobalamin (vitamin B-12) 1,000 mcg PO DAILY #30 cap 06/30/20 folic acid 1 mg PO DAILY #30 tab 06/30/20 lidocaine [Lidoderm] 1 patch TOPICAL Q24H #30 ea 06/30/20 Previous Rx's Medication Instructions Recorded Eliquis See Rx Instructions .ROUTE 06/30/20 .COMPLEX #60 tab Therems-M 1 tab PO DAILY #30 tab 06/30/20 acetaminophen [Mapap Extra 1,000 mg PO Q8H #90 tab 06/30/20 Strength] amlodipine 10 mg PO DAILY #30 tab 06/30/20 cyanocobalamin (vitamin B-12) 1,000 mcg PO DAILY #30 cap 06/30/20 folic acid 1 mg PO DAILY #30 tab 06/30/20 lidocaine [Lidoderm] 1 patch TOPICAL Q24H #30 ea 06/30/20 Allergies Allergy/AdvReac Type Severity Reaction Status Date / Time No Known Allergies Allergy Unverified 06/26/20 19:26 General Stated Complaint: Dizzy/Sync SANTINO: 3 Review of Systems All systems reviewed & are unremarkable except as noted in HPI and below PFSH Medical History Arthritis (Acute) 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 Incision and drainage of the neck in childhood. Social History Smoking/Tobacco Use Status: Never Alcohol Intake: current Alcohol Intake frequency: a few times a month Alcohol type: beer Drug use: Never Substance use type: does not use Do you feel safe at home: Yes Do you feel safe in your relationship?: Yes Additional Social history: Lives in [place] with his . 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 Exam Narrative Exam Narrative: 1.Const: Well-nourished, Well-developed, appearing stated age 2.Eyes: PERRL, no conjunctival injection, and symmetrical lids. 3.ENT: Atraumatic external nose and ears. Moist MM. Neck: Symmetric, trachea midline, No thyromegaly. There is no evidence of raccoon eyes, hernández sign, CSF rhinorrhea, mastoid tenderness, cranial crepitus, hemotympanum (except there was not able to visualize the left tympanic membrane secondary to cerumen impaction.), exophthalmos, or hyphema. Patient demonstrates intact dentition with no signs of tooth avulsion or fracture, no signs of jaw deformity, no evidence of a LeFort's fracture, with an intact palate, nose and orbital region. There is no evidence of a nasal septal hematoma. No proptosis. Jaw closes symmetrically. Airway is clear. 4.CVS: +S1/S2, No murmurs or gallops. Peripheral pulses 2+ and equal in all extremities. Brisk capillary refill in all extremities. 5.RESP: Unlabored respiratory effort. Clear to auscultation bilaterally. No wheezes rales or rhonchi 6.GI: Soft, Nontender/Nondistended, No hepatosplenomegaly. No guarding or rebound. 7.MSK: Normocephalic/Atraumatic, Extremities w/o deformity or ttp No cyanosis or clubbing, Normal movement of all extremities, no midline cervical thoracic lumbar spine tenderness. No pain in the elbows shoulders wrists knees or hips. No pain or tenderness to AP or lateral compression of the hips or pelvis. 8.Skin: Warm, Dry. No rashes or lesions. 9.Neuro: preschool program director II-XII grossly intact. Sensation grossly intact, no focal neurologic deficits. All 6 cardinal planes of vision are fully intact. No evidence of rotatory or vertical nystagmus. The patient demonstrated a normal [id number], good dexterity. There was no evidence of dysdiadochokinesia.Rius-pe-juzu testing was normal. Sensation was intact bilaterally as well as muscle strength bilaterally for all extremities except for slight decrease in strength in right hip flexion compared to the left. Patient was able to verbalize butter cup with no slurring, or miss pronunciation. 10.Psych: (AAO) x3. Appropriate mood and affect Course Vital Signs Vital signs: Vital Signs Temperature 36.8 C 07/01/20 22:43 Pulse 110 H 07/01/20 22:43 Respiratory Rate 07/01/20 22:43 Blood Pressure 135/73 07/01/20 22:43 Pulse Oximetry 97 07/01/20 22:43 Temperature 36.8 C 07/01/20 22:43 Temperature Source Skin 07/01/20 22:43 Pulse 110 H 07/01/20 22:43 Respiratory Rate 07/01/20 22:52 Respiratory Effort 07/01/20 22:52 Blood Pressure 135/73 07/01/20 22:43 Blood Pressure Position Supine 07/01/20 22:43 Pulse Oximetry 97 07/01/20 22:43 Oxygen Delivery Method Room Air 07/01/20 22:43 Oxygen Flow Rate 0 07/01/20 22:43 Pain Level 0 07/01/20 22:43
[2020-07-01 23:36] LABS: Abs Immature Grans 0.12 10^3/uL (0.0-0.06); Absolute Eosinophil Count 0.19 10^3/uL (0.0-0.7); Absolute Lymphocyte Count 1.49 10^3/uL (1.2-3.4); Absolute Monocyte Count 0.72 10^3/uL (0.1-0.8); Basophils % 0.4; Eosinophils % 1.4; HCT 31.1 % (40.0-50.0); HGB 10.7 g/dL (13.5-17.5); Immature Grans % 0.9; Lymphocytes % 10.7; MCH 31.7 pg (27.0-33.0); MCHC 34.4 % (32.0-36.0); Monocytes % 5.2; Neutrophils % 81.4; Nucleated RBC 0 %; Platelet Count 224 10^3/uL (130-400); RBC 3.38 10^6/uL (4.36-5.78); RDW 13.7 % (11.8-14.1); RDW-SD 46.1 fL; WBC 13.91 10^3/uL (4.4-10.8)
[2020-07-01 23:46] LABS: Absolute Basophil Count 0.06 10^3/uL (0.0-0.2); Absolute Neutrophil Count 11.32 10^3/uL (1.2-6.7)
[2020-07-02 00:12] LABS: ALT 33 U/L (16-63); AST 15 U/L (15-37); Albumin 2.7 g/dL (3.4-5.0); Alkaline Phosphatase 67 U/L (46-116); Anion Gap 13.9 mmol/L (3-11); BUN 75 mg/dL (7-18); Bilirubin, Total 0.3 mg/dL (0.2-1.0); CO2 17.1 mmol/L (21.0-32.0); CREATININE 1.65 mg/dL (0.70-1.30); Calcium 8.5 mg/dL (8.5-10.1); Chloride 108 mmol/L (98-107); Estimated GFR 40.04 (mL/min/1.73m2); Glucose 140 mg/dL (74-106); Potassium 4.3 mmol/L (3.5-5.1); Sodium 139 mmol/L (136-145); TSH (W/Ref FT4) 2.96 uIU/mL (0.36-3.74); Total Protein 5.5 g/dL (6.4-8.2)
--- NOTE | 2020-07-02 00:12 | DI.VRAD_ITS ---
PROCEDURE INFORMATION: Exam: CT Head Without Contrast Exam date and time: 07/01/2020 11:57 PM Age: 85 years old Clinical indication: Injury or trauma; Fall; Initial encounter; Blunt trauma; Injury date: 07/01/20 TECHNIQUE: Imaging protocol: Computed tomography of the head without contrast. Radiation optimization: All CT scans at this facility use at least one of these dose optimization techniques: automated exposure control; mA and/or kV adjustment per patient size (includes targeted exams where dose is matched to clinical indication); or iterative reconstruction. COMPARISON: No relevant prior studies available. FINDINGS: Brain: Chronic right inferior cerebellar infarct. No hemorrhage. Unremarkable white matter. No mass effect. Ventricles: Normal. No ventriculomegaly. Bones/joints: Unremarkable. No acute fracture. Sinuses: Visualized sinuses are unremarkable. No fluid levels. Mastoid air cells: Visualized mastoid air cells are well aerated. Soft tissues: Unremarkable. IMPRESSION: No acute intracranial abnormality. PROCEDURE INFORMATION: Exam: CT Cervical Spine Without Contrast Exam date and time: 07/01/2020 11:57 PM Age: 85 years old Clinical indication: Injury or trauma; Fall; Initial encounter; Blunt trauma; Injury date: 07/01/20 TECHNIQUE: Imaging protocol: Computed tomography images of the cervical spine without contrast. Radiation optimization: All CT scans at this facility use at least one of these dose optimization techniques: automated exposure control; mA and/or kV adjustment per patient size (includes targeted exams where dose is matched to clinical indication); or iterative reconstruction. COMPARISON: No relevant prior studies available. FINDINGS: Vertebrae: No acute fracture. Normal alignment. Multilevel degenerative disk disease and facet arthropathy with neuroforaminal and canal stenosis.. Soft tissues: Unremarkable. Lungs: Lung apices are normal. IMPRESSION: No acute findings. Dictated and Authenticated by: Nicholas Deluna MD. Ordering:PHILIP Robles MD
[2020-07-02 00:26] LABS: Troponin I < 0.05 ng/mL (<0.06)
[2020-07-02 00:42] LABS: INR 1.3 (0.9-1.1); PTT Activated 29.4 sec (21.0-31.4); Prothrombin Time 13.4 sec (9.3-11.0)
[2020-07-02 01:35] VITALS: BP 106/53; PULSE 100; RESP 20; TEMP 36.7; O2SAT 100
[2020-07-02] MEDS: Lidocaine 5% Patch 1 PATCH TP (01:42)
== END 2020-07-02 02:00 | disposition home or self-care (01) ==
PROVIDERS: Emergency Provider Student in an Organized Health Care Education/Training Program; PCP Internal Medicine
DX: S09.90XA Unspecified injury of head, initial encounter (principal); W19.XXXA Unspecified fall, initial encounter; R42 Dizziness and giddiness; Z79.01 Long term (current) use of anticoagulants; Z86.718 Personal history of other venous thrombosis and embolism; I12.9 Hypertensive chronic kidney disease with stage 1 through stage 4 chronic kidney disease, or unspecified chronic kidney disease; N18.3 Chronic kidney disease, stage 3 (moderate)
CPT/HCPCS: 80053; 93005; 99285; 70450; 72125; 84443; 84484; 85025; 85610; 85730; 93010; 99284

== ENCOUNTER 2020-07-02 06:12 | Inpatient (IN) | payer MEDICARE, BC, SELFPAY ==
[2020-07-02] VITALS (23 sets, daily range): BP systolic 85–115; BP diastolic 55–73; PULSE 68–114; RESP 12–24; TEMP 36.1–36.8; O2SAT 97–100
--- NOTE | 2020-07-02 06:16 | ED.GENADUL_ITS ---
Discharge Plan Discharge Details Chief Complaint: GenMedical Primary Care Provider: Gabriel Brooks ED Provider: Travis Andersen Home Meds and New Rx's Prescriptions: No Action atorvastatin 20 mg Tablet 20 mg PO DAILY RF: 0 aspirin [Aspir-81] 81 mg Tablet,Delayed Release (Dr/Ec) 81 mg PO DAILY RF: 0 cholecalciferol (vitamin D3) [Vitamin D3] 50 mcg (2,000 unit) Capsule 2,000 unit PO DAILY RF: 0 amlodipine 5 mg Tablet 10 mg PO DAILY Qty: 30 RF: 0 acetaminophen [Mapap Extra Strength] 500 mg Tablet 1,000 mg PO Q8H Qty: 90 RF: 0 Eliquis 5 mg Tablet See Rx Instructions .ROUTE .COMPLEX Qty: 60 RF: 0 folic acid 1 mg Tablet 1 mg PO DAILY Qty: 30 RF: 0 cyanocobalamin (vitamin B-12) 1,000 mcg capsule 1,000 mcg PO DAILY Qty: 30 RF: 0 lidocaine [Lidoderm] 5 % Adhesive Patch,Medicated 1 patch topical Q24H Qty: 30 RF: 0 Therems-M 27-0.4 mg Tablet 1 tab PO DAILY Qty: 30 RF: 0 Medical Decision Making 6 AM This is a pleasant 85-year-old male with a past medical history of hypertension, CKD stage 3, hyperlipidemia, and prior CVA, DVT of the left popliteal vein, currently on Eliquis. He was recently discharged from the hospital slightly greater than 24 hours ago. At home he states he initially was doing well, and then last evening he got up to go to the bathroom felt weak and fell. He hit his head at that time. He had no other complaints aside for the fall, was brought into the ER by EMS. Here in the ER he had negative CT imaging of his head neck, vital signs were stable, laboratory work-up was relatively benign, EKG and troponin were negative. After evaluation the patient felt well, was able to get up and ambulate, and was discharged home. Unfortunately after getting home the patient began to feel more weak again. Patient fell again at home, but did not hit his head. He states that he feels weaker now, does not feel like he can walk well. Initial physical exam here in the ED was relatively unremarkable, no significant hip pain, no evidence of trauma to the head or neck, no abdominal or chest pain, however during the patient's first few minutes here in the ER he then had a bowel movement which was dark and tarry appearing, with also some bright red component as well. All the patient states that he has had tarry stools in the distant past, this is new and different. He denies any severe abdominal pain. He is taking his anticoagulant for his DVT. Hemoglobin since discharge is slightly lower at 10.7 and now subsequently 11, however in conjunction now with his stools, and his continued weakness I do feel that the patient is likely suffering from mild GI bleed. We will give Protonix and famotidine IV. Consult hospitalist for admission. No indication for repeat imaging of the head, repeat exam demonstrates some mild subjective hip soreness, no significant hip pain. Out of an abundance of precaution we will get x-ray of hips to rule out fracture though I feel this notably less likely based on exam. 7 AM Hemoglobin 11, blood pressure stable at 101 systolic, heart rate 90, patient remains comfortable. Dr. Magana agrees with need for admission. I will place bridging orders meantime. 1:42 AM X-ray is negative for acute fracture. Patient remains hemodynamically stable here in the ED. BUN elevated at 84, creatinine 1.9, suspect GI bleed, potential proximal to the ligament of Treitz. Current blood pressure 101/61 heart rate 87. Patient will be admitted to the floor. I have extensively reviewed the treatment plan with the patient. I have addressed all patient concerns at this time. I have also discussed the plan with the admitting physician and they agree with the current assessment and plan and have agreed to assume responsibility for the patient. All parties demonstrate verbal understanding and agreement with our assessment and plan at this time. FINDINGS: Bones/joints: No acute fracture or dislocation is identified. The femoral head articular contours are maintained, and the femoral heads appear to be of normal density. There is very mild osteophyte formation about the bilateral hip and sacroiliac joints. Lower lumbar spondylosis is noted. No focal lytic or blastic lesion is identified. Soft tissues: The soft tissues appear grossly unremarkable. Vasculature: Atherosclerotic vascular calcifications are noted. IMPRESSION: 1. No acute fracture or dislocation identified. MRI would be more sensitive to pelvic and hip fracture as clinically appropriate. 2. Degenerative changes as described. Thank you for allowing us to participate in the care of your patient. Dictated and Authenticated by: Nicholas Garcia MD 07/02/2020 7:40 AM Eastern Time ([place] & [place]) HPI General Date/Time Provider Initiated Documentation: 07/02/20 06:12 . HPI Narrative: This is a pleasant 85-year-old male with a past medical history of hypertension, CKD stage 3, hyperlipidemia, and prior CVA, DVT of the left popliteal vein, currently on Eliquis. He was recently discharged from the hospital slightly greater than 24 hours ago. At home he states he initially was doing well, and then last evening he got up to go to the bathroom felt weak and fell. He hit his head at that time. He had no other complaints aside for the fall, was brought into the ER by EMS. Here in the ER he had negative CT imaging of his head neck, vital signs were stable, laboratory work-up was relatively benign, EKG and troponin were negative. After evaluation the patient felt well, was able to get up and ambulate, and was discharged home. Unfortunately after getting home the patient began to feel more weak again. Patient fell again at home, but did not hit his head. He states that he feels weaker now, does not feel like he can walk well. No other complaints at this time. Related Data Home Medications Medication Instructions Recorded Confirmed aspirin [Aspir-81] 81 mg PO DAILY 05/31/20 07/02/20 atorvastatin 20 mg PO DAILY 05/31/20 07/02/20 cholecalciferol (vitamin D3) 2,000 unit PO DAILY 05/31/20 07/02/20 [Vitamin D3] Eliquis See Rx Instructions .ROUTE 06/30/20 07/02/20 .COMPLEX #60 tab Therems-M 1 tab PO DAILY #30 tab 06/30/20 07/02/20 acetaminophen [Mapap Extra 1,000 mg PO Q8H #90 tab 06/30/20 07/02/20 Strength] amlodipine 10 mg PO DAILY #30 tab 06/30/20 07/02/20 cyanocobalamin (vitamin B-12) 1,000 mcg PO DAILY #30 cap 06/30/20 07/02/20 folic acid 1 mg PO DAILY #30 tab 06/30/20 07/02/20 lidocaine [Lidoderm] 1 patch TOPICAL Q24H #30 ea 06/30/20 07/02/20 Previous Rx's Medication Instructions Recorded Eliquis See Rx Instructions .ROUTE 06/30/20 .COMPLEX #60 tab Therems-M 1 tab PO DAILY #30 tab 06/30/20 acetaminophen [Mapap Extra 1,000 mg PO Q8H #90 tab 06/30/20 Strength] amlodipine 10 mg PO DAILY #30 tab 06/30/20 cyanocobalamin (vitamin B-12) 1,000 mcg PO DAILY #30 cap 06/30/20 folic acid 1 mg PO DAILY #30 tab 06/30/20 lidocaine [Lidoderm] 1 patch TOPICAL Q24H #30 ea 06/30/20 Allergies Allergy/AdvReac Type Severity Reaction Status Date / Time No Known Allergies Allergy Unverified 06/26/20 19:26 General Stated Complaint: GenMedical SANTINO: 3 Review of Systems All systems reviewed & are unremarkable except as noted in HPI and below PFSH Medical History Arthritis (Acute) 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 Incision and drainage of the neck in childhood. Social History Smoking/Tobacco Use Status: Never Alcohol Intake: current Alcohol Intake frequency: a few times a month Alcohol type: beer Drug use: Never Substance use type: does not use Do you feel safe at home: Yes Do you feel safe in your relationship?: Yes Additional Social history: Lives in [place] with his . 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 Exam Narrative Exam Narrative: 1.Const: Well-nourished, Well-developed, appearing stated age 2.Eyes: PERRL, no conjunctival injection, and symmetrical lids. 3.ENT: Atraumatic external nose and ears. Moist MM. Neck: Symmetric, trachea midline, No thyromegaly. 4.CVS: +S1/S2, No murmurs or gallops. Peripheral pulses 2+ and equal in all extremities. Brisk capillary refill in all extremities. 5.RESP: Unlabored respiratory effort. Clear to auscultation bilaterally. No wheezes rales or rhonchi 6.GI: Soft, Nontender/Nondistended, No hepatosplenomegaly. No guarding or rebound. 7.MSK: Normocephalic/Atraumatic, Extremities w/o deformity or ttp No cyanosis or clubbing, Normal movement of all extremities, no tenderness hips, normal movement of the lower extremities. No midline cervical thoracic or lumbar spine tenderness. 8.Skin: Warm, Dry. No rashes or lesions. 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 Sensation grossly intact, no focal neurologic deficits. 10.Psych: (AAO) x3. Appropriate mood and affect Course Vital Signs Vital signs: Vital Signs Temperature 36.4 C L 07/02/20 06:04 Pulse 103 H 07/02/20 06:04 Respiratory Rate 07/02/20 06:04 Blood Pressure 93/56 L 07/02/20 06:04 Pulse Oximetry 99 07/02/20 06:04 Temperature 36.4 C L 07/02/20 06:04 Pulse 103 H 07/02/20 06:04 Respiratory Rate 20 07/02/20 06:11 Respiratory Effort 07/02/20 06:11 Respiratory Depth Normal 07/02/20 06:11 Respiratory Pattern Normal 07/02/20 06:11 Blood Pressure 93/56 L 07/02/20 06:04 Blood Pressure Position Supine 07/02/20 06:04 Pulse Oximetry 99 07/02/20 06:04 Oxygen Delivery Method Nasal Cannula 07/02/20 06:04 Oxygen Flow Rate 2 07/02/20 06:04
[2020-07-02] MEDS: Ondansetron O.D.T. 4 MG TABEF PO (06:43)
[2020-07-02] MEDS: FAMOTIDINE 20 MG/50 ML BAG 200 MG IVPB (06:45)
[2020-07-02] MEDS: Pantoprazole 40 MG VIAL IVP ×3 (06:46→21:32)
[2020-07-02 06:48] LABS: Abs Immature Grans 0.13 10^3/uL (0.0-0.06); Absolute Basophil Count 0.09 10^3/uL (0.0-0.2); Absolute Eosinophil Count 0.15 10^3/uL (0.0-0.7); Absolute Lymphocyte Count 2.98 10^3/uL (1.2-3.4); Absolute Monocyte Count 0.78 10^3/uL (0.1-0.8); Basophils % 0.6; HCT 31.7 % (40.0-50.0); Immature Grans % 0.9; Lymphocytes % 20.5; MCH 31.8 pg (27.0-33.0); MCHC 34.7 % (32.0-36.0); MCV 91.6 fL (80-95); MPV 10.4 fL (8.0-11.0); Monocytes % 5.4; Neutrophils % 71.6; Nucleated RBC 0 %; Platelet Count 263 10^3/uL (130-400); RBC 3.46 10^6/uL (4.36-5.78); RDW 14.1 % (11.8-14.1); RDW-SD 47.2 fL; WBC 14.52 10^3/uL (4.4-10.8)
--- NOTE | 2020-07-02 06:55 | NUR.NOTE ---
BRAYDEN Porter from home with c/ofserene. Pt seen earlier this evening for another fall, DC home after imaging. Fall at home again, denies head strike. Pt reports feeling weak and unsteady at home. Pt inct of stool en route to hospital, inct care provided. Noted to have black/red stools. Pt reprots similar x 2-3 days. Currently on eliquis for LLE DVT. Denies abd pain, CP, SOB. #20 LAC, #18 RAC, labs drawn. Med a/o.
[2020-07-02] MEDS: Normal Saline 500 ML IV ×2 (07:05→10:40)
[2020-07-02 07:14] LABS: ALT 35 U/L (16-63); AST 15 U/L (15-37); Alkaline Phosphatase 70 U/L (46-116); Anion Gap 13.7 mmol/L (3-11); Bilirubin, Total 0.5 mg/dL (0.2-1.0); CO2 17.3 mmol/L (21.0-32.0); Calcium 8.8 mg/dL (8.5-10.1); Chloride 109 mmol/L (98-107); Estimated GFR 34.02 (mL/min/1.73m2); Glucose 176 mg/dL (74-106); Potassium 4.5 mmol/L (3.5-5.1); Sodium 140 mmol/L (136-145); Total Protein 5.9 g/dL (6.4-8.2)
[2020-07-02 07:22] LABS: BUN 84 mg/dL (7-18)
--- NOTE | 2020-07-02 07:22 | DI.RAD_ITS ---
EXAM: XR HIP PELVIS ADULT BL CLINICAL HISTORY: fall. TECHNIQUE: 2D digital imaging was performed. COMPARISON: CR XR HIP RT COMPLETE AP PELVIS from 05/31/2020 FINDINGS: BONES: No acute fracture is present. No bony destructive lesion is seen. There is bilateral acetabu lar spurring. JOINTS: No dislocation present. There are degenerative changes of the lower lumbar spine. SI joints and pubic symphysis are unremarkable. IMPRESSION: Degenerative changes. No acute abnormality. DATA REPOSITORY: RADIATION DOSE DELIVERED:
--- NOTE | 2020-07-02 07:40 | DI.VRAD_ITS ---
PROCEDURE INFORMATION: Exam: XR Bilateral Hips with Pelvis when Performed Exam date and time: 07/02/2020 7:15 AM Age: 85 years old Clinical indication: Hip pain; Bilateral TECHNIQUE: Imaging protocol: XR bilateral hips with pelvis when performed. Views: 3 or 4 views. COMPARISON: CT ABDOMEN PELVIS WO 06/26/2020 9:27 PM FINDINGS: Bones/joints: No acute fracture or dislocation is identified. The femoral head articular contours are maintained, and the femoral heads appear to be of normal density. There is very mild osteophyte formation about the bilateral hip and sacroiliac joints. Lower lumbar spondylosis is noted. No focal lytic or blastic lesion is identified. Soft tissues: The soft tissues appear grossly unremarkable. Vasculature: Atherosclerotic vascular calcifications are noted. IMPRESSION: 1. No acute fracture or dislocation identified. MRI would be more sensitive to pelvic and hip fracture as clinically appropriate. 2. Degenerative changes as described. Dictated and Authenticated by: Nicholas Garcia MD. Ordering:PHILIP Robles MD
--- NOTE | 2020-07-02 09:14 | PDOC.CMIN ---
- If Service Date Differs Date of service: 07/02/20 Time of Service: 09:14 Care Management Initial Assess REASON FOR HOSPITALIZATION:: Falls, failure to thrive, GI bleed PAST MEDICAL HISTORY/PAST SURGICAL HISTORY:: Medical History: Recent diagnosis of DVT started on DOAC, Arthritis Cerebellar cerebrovascular accident (CVA) without late effect (Acute). 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 Hypertension (Chronic). Surgical History: History of surgery (Active). Tonsillectomy and adenoidectomy in childhood. Incision and drainage of the neck in childhood. PREVIOUS FUNCTIONAL STATUS/SOCIAL/FAMILY SUPPORTS:: Bruce lives in [place] with his , Xenia, of 56 yrs. He is the oldest of 8 siblings. 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 He appears younger than his stated age, and attributes this to his awareness of health, healthy eating habits, and because he eats mushrooms of all kinds, which he forages locally. He has been independent at baseline until recently, as his pain has made him stay in bed more and more. He has traveled all over the world, and is very fond of his two [employer] dogs that he walks daily. CURRENT FUNCTIONAL STATUS:: Bruce was engaged with CM during assessment. He likes to talk about his past experainces and his love for mushrooms. He feels that he is in need of a SNF. He is worried that he scared his spouse with the multiple falls. He states he fell twice in one night prior to admission. ADVANCE DIRECTIVES:: None on file he did meet with palliative care. CM to offer forms. Has patient been provided with info about the portal/API?: Yes Did the patient sign up for the portal?: No CODE STATUS:: Full Code INSURANCE COVERAGE / FINANCIAL ISSUES:: [facility]/ BCBS CURRENT HOME/COMMUNITY SERVICES/EQUIPMENT:: Bruce was discharged with new home health services home health services have not started. PRIMARY CARE PHYSICIAN:: POTENTIAL DISCHARGE NEEDS:: SNF referral PATIENT/FAMILY EDUCATION NEEDS:: Review discharge instructions regarding activity levels and medications, discussion of self care needs including ask me three. ANTICIPATED BARRIERS TO DISCHARGE:: Accepting facility. TRANSPORTATION:: Pending disposition PLAN:: Bruce will need an acute rehab stay prior to returning home. He has requested a referral [facility], CM reviewed all local nursing facilities. Bruce had a qualifying stay in the last 30 days and can be transition to SNF level of care once he is medically ready.
[2020-07-02] MEDS: Lidocaine 5% Patch 1 PATCH TP (10:01)
[2020-07-02] MEDS: Cyanocobalamin 500 MCG TAB 1000 MCG PO (10:02)
[2020-07-02] MEDS: Cholecalciferol (Vitamin D3) 1,000 UNIT TAB 2000 UNITS PO (10:02)
[2020-07-02] MEDS: Apixaban 5 MG TAB 10 MG PO ×2 (10:02→21:31)
[2020-07-02] MEDS: Folic Acid 1 MG TAB PO (10:02)
[2020-07-02] MEDS: Aspirin E.C. 81 MG TABEC PO (10:03)
[2020-07-02] MEDS: Acetaminophen 500 MG TAB 1000 MG PO ×3 (10:03→23:44)
[2020-07-02] MEDS: Normal Saline Flush 10 ML SYR IVP ×3 (10:12→21:33)
--- NOTE | 2020-07-02 11:19 | W.PM.HP.N ---
Date of service: 07/02/20 Time of Service: 11:19 Assessment and Plan Assessment and plan (1) Fall: Start date: 07/02/20 Start time: 11:53 Status: Acute Assessment and plan: Presents to ED after falling at home, recently diagnosed with popiteal DVT and discharged home on eliquis. He states at home his appetite has not been well. He appear dehydrated, cracked and chapped lips, dry tongue. BUN and Creatinine elevated. He states he fell due to weakness. PT/OT ordered IVF IS BP on the softer side today will r/o orthostatic hypotension 500 cc bolus. Qualifiers: Encounter type: initial encounter Qualified Code(s): W19.XXXA - Unspecified fall, initial encounter (2) Failure to thrive: Start date: 07/02/20 Start time: 12:11 Status: Acute Assessment and plan: Failed at home This appears to be in setting of returning home after being discharged with DVT and on eliquis. He denies abdominal pain, does endorse lack of appetite, Will also r/o sources of infection given leukocytosis and weakness. He would benefit from SNIF for rehab Qualifiers: Failure to thrive age range: in adult Qualified Code(s): R62.7 - Adult failure to thrive (3) Acute kidney injury superimposed on chronic kidney disease: Start date: 07/02/20 Start time: 12:11 Status: Acute Assessment and plan: From dehydration, as above (4) Dehydration: Start date: 07/02/20 Start time: 12:26 Status: Acute Assessment and plan: From lack of appetite not eating or drinking, Rehydrate with IVF (5) Weakness: Start date: 07/02/20 Start time: 12:36 Status: Acute Assessment and plan: As above. PT/OT (6) Trochanteric bursitis, right hip: Start date: 07/02/20 Start time: 12:37 Status: Chronic Assessment and plan: Seen by Dr. Young last admission, scheduled tylenol and lidoderm patches were successful on last admission for controlling pain, will continue at this time. (7) Hypertension: Start date: 07/02/20 Start time: 12:45 Status: Chronic Assessment and plan: BP soft at this time, given bolus Orthostatic bp hold amlodipine at this time. Qualifiers: Hypertension type: essential hypertension Qualified Code(s): I10 - Essential (primary) hypertension (8) Leukocytosis: Start date: 07/02/20 Start time: 12:52 Status: Acute Assessment and plan: Procalcitonin checked and elevated. Afebrile. Ua pending CXR pending Lactate stat BC ordered, will r/o all possible sources. (9) Deep venous thrombosis of left popliteal vein: Start date: 07/02/20 Start time: 12:58 Status: Acute Assessment and plan: Found on last admission. Started on eliquis, will continue 10 mg PO BID x 7 days than decrease to 5 mg bid. He did have melena stools and positive hemtest. He was not on a PPI at home, will add PPI BID and monitor stools. Qualifiers: Chronicity: acute Qualified Code(s): I82.432 - Acute embolism and thrombosis of left popliteal vein (10) Heme positive stool: Start date: 07/02/20 Start time: 13:01 Status: Acute Assessment and plan: As above (11) Edema of both lower extremities: Start date: 07/02/20 Start time: 13:00 Status: Chronic Assessment and plan: Chronic but was found to have DVT last admission, as above. 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 Will have PT evaluate, he did fail at home. (15) DVT prophylaxis: Start date: 07/02/20 Start time: 13:02 Status: Acute Assessment and plan: On eliquis Above case discussed with Dr. Jensen who is in agreement. History of Present Illness History of Present Illness Chief Complaint: FTT, weakness, Dehydration, KIKE Narrative: 85 y.o male recently admitted to hospitalist service and discharged home on 06/30 for Popiteal DVT. He presented back to the hospital last evening after falling due to weakness. At home he endorses poor appetite leading him to not eat and drink likely contributing to weakness. He denies LOC, hitting his head and syncope. On discharge he was on eliquis for DVT, he did have heme positive stool in the ED, denies abdominal pain, BM are dark no red, H/H stable. Labs in the ED with leukocytosis, afebrile, BUN 84, creatinine 1.90; he was asked to be admitted to M/S for further management. Mr. Ceballos lives at home with his and 2 dogs, he does not smoke or drink, he has a graduate degree from [employer] and worked for the [employer] for over 30 years until residential. He was failing at home with lack of appetite contributing to weakness. He would benefit from PT/OT, and likely a rehab stay for improvement of symptoms. He is having nausea but denies abdominal pain and contributes this to taking pill on an empty stomach. Zofran for nausea, hemetest stools, will r/o sources infection given elevated leukocytosis. 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 Incision and drainage of the neck in childhood. Social History Smoking/Tobacco Use Status: Never Alcohol Intake: current Alcohol Intake frequency: a few times a month Alcohol type: beer Drug use: Never Substance use type: does not use Do you feel safe at home: Yes Do you feel safe in your relationship?: Yes Additional Social history: Lives in [place] with his . 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 Meds Home Medications and Allergies Home Medications Medication Instructions Recorded Confirmed Type aspirin [Aspir-81] 81 mg PO DAILY 05/31/20 07/02/20 History atorvastatin 20 mg PO DAILY 05/31/20 07/02/20 History cholecalciferol (vitamin D3) 2,000 unit PO DAILY 05/31/20 07/02/20 History [Vitamin D3] Eliquis See Rx Instructions .ROUTE 06/30/20 07/02/20 Rx .COMPLEX #60 tab Therems-M 1 tab PO DAILY #30 tab 06/30/20 07/02/20 Rx acetaminophen [Mapap Extra 1,000 mg PO Q8H #90 tab 06/30/20 07/02/20 Rx Strength] amlodipine 10 mg PO DAILY #30 tab 06/30/20 07/02/20 Rx cyanocobalamin (vitamin B-12) 1,000 mcg PO DAILY #30 cap 06/30/20 07/02/20 Rx folic acid 1 mg PO DAILY #30 tab 06/30/20 07/02/20 Rx lidocaine [Lidoderm] 1 patch TOPICAL Q24H #30 ea 06/30/20 07/02/20 Rx Allergies Allergy/AdvReac Type Severity Reaction Status Date / Time No Known Allergies Allergy Unverified 06/26/20 19:26 Exam Const General: cooperative, no acute distress, ill appearing chronically and No well hydrated Nutritional Appearance: obese Orientation: alert, awake and oriented x3 HENMT Head: normal to inspection and atraumatic Ears: hearing grossly normal bilaterally Mouth: mucous membranes dry and moist mucous membranes abnormal Other: lips dry and cracking Eyes Pupils: PERRL EOM: EOM intact bilaterally Neck Carotids: normal carotid upstroke Lymphatic: no lymphadenopathy noted Chest Chest: normal inspection of the chest Resp Effort & Inspection: normal respiratory effort and able to speak in complete sentences Auscultation: clear to auscultation bilaterally Cardio Rate: regular rate Rhythm: regular rhythm Heart Sounds: S1 normal and S2 normal GI Inspection: normal to inspection Palpation: soft and no hepatosplenomegaly Auscultation: normal bowel sounds General: deferred Back/Spine/Pelvis Back: no CVA tenderness Thoracic/Lumbar Spine: thoracic and lumbar spine normal to inspection Skin General skin exam: no rashes or lesions noted Neuro General: patient alert, patient awake, patient oriented x3 and moves all extremities Cognition: normal cognition Speech: speech normal Extrem General: abnormal to inspection and edema (non pitting) Laterality: bilateral Psych Appearance: grossly normal Mental Status: mental status grossly normal Speech and Movement: speech and movement normal Mood: congruent mood Affect: normal affect Attitude: cooperative Thought Content: normal Results Labs Result diagrams: 07/02/20 06:30 07/02/20 06:30 Labs: Laboratory Results - last 24 hr 07/02/20 07/02/20 07/02/20 06:30 06:30 06:30 WBC 14.52 H RBC 3.46 L Hgb 11.0 L Hct 31.7 L MCV 91.6 MCH 31.8 MCHC 34.7 RDW 14.1 Plt Count 263 MPV 10.4 Immature Gran % 0.9 Neutrophils % 71.6 Lymphocytes % 20.5 Monocytes % 5.4 Eosinophils % 1.0 Basophils % 0.6 Nucleated RBC % 0 Absolute Neutrophils 10.40 H Absolute Lymphocytes 2.98 Absolute Monocytes 0.78 Absolute Eosinophils 0.15 Absolute Basophils 0.09 Sodium 140 Potassium 4.5 Chloride 109 H Carbon Dioxide 17.3 L Anion Gap 13.7 H BUN 84 H* Creatinine 1.90 H Estimated GFR/1.73 m2 34.02 Glucose 176 H Calcium 8.8 Total Bilirubin 0.5 AST 15 ALT 35 Alkaline Phosphatase 70 Total Protein 5.9 L Albumin 3.0 L Patient ABO/Rh A Positive Antibody Screen Negative Last Vital Signs Temp 36.1 C L 07/02/20 08:15 Pulse 92 H 07/02/20 10:38 Resp 18 07/02/20 08:15 BP 92/55 L 07/02/20 10:38 Pulse Ox 100 07/02/20 08:15 COVID-19 Screening Have you,or household,traveled outside [place] in last 14 days?: No Had IN PERSON contact w/suspected or confirmed C-19 person: No
[2020-07-02] MEDS: Normal Saline 1,000 ML 999 ML IV (11:30)
--- NOTE | 2020-07-02 11:52 | PT.INIE ---
Date of service: 07/02/20 Time of Service: 10:15 PT Notes Visit Reasons: [facility] Inpatient Physical Therapy Evaluation Date: 07/02/2020 Referring Doctor: Eleuterio Peacock PT Orders: PT CONSULT: unpecified evaluation order Precautions: Standard, fall Patient Profile/Admitting Diagnosis: 85-year-old male with a past medical history of hypertension, CKD stage 3, hyperlipidemia, and prior CVA, DVT of the left popliteal vein, currently on Eliquis. He was recently discharged from the hospital slightly greater than 24 hours ago. At home he states he initially was doing well, and then last evening he got up to go to the bathroom felt weak and fell. He hit his head at that time. He had no other complaints aside for the fall, was brought into the ER by EMS. He had negative CT imaging of his head neck. After evaluation the patient felt well, was able to get up and ambulate, and was discharged home. Unfortunately after getting home the patient began to feel more weak again. Patient fell again at home, but did not hit his head. Upon further evaluation in the ER, he appeared to have abnormal stools allowing for suspicion of GI bleed. His condition at home has overall been failing, per EMR review, with lack of appetite and continued weakness. He continues to struggle with chronic right lateral hip pain, limiting weightbearing tolerance. 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 Incision and drainage of the neck in childhood. Social History/Home Situation: Lives with in a private home with 3 steps to enter with bilateral rails. Independent with all ambulation activities using front wheeled walker for all indoor ambulation. He states that he has rarely gotten out of the house and has his help him with all his transportation needs. Equipment Owned/DME: Front wheeled walker. Current Functional Limitations: Pain limiting ability to stand up, pain limiting ability tolerate sitting beyond 2 minutes. Requires assist with bed to supine Subjective: Patient reports that he cannot stop shivering, he feels very cold. Right hip is responding favorably to lidocaine patch, but continues to be very painful to the point where he cannot tolerate sitting or standing very well. Objective: General Observation: In bed, looks exhausted. He is lying on his left side, pillow between the knees, lidocaine patch on the right lateral hip. He has an IV in the left cubital fossa. Mental Status: A&Ox3 Pain: 3/10 right hip Vital Signs: 92/55, 45 degrees supine. Ended to take vitals and patient in sitting, but his pain level did not allow for this to be completed fast enough, and he had to return to bed ROM: Right Upper Extremity: Grossly 145 degrees of shoulder elevation and planes of flexion and abduction, elbow, wrist and digits are all WNL Left Upper Extremity: Comparable to right UE Right Lower Extremity: Unable to assess well, due to patient's pain. He was restricted to 90 degrees of hip flexion, and guarded with attempt of any other movements. Left Lower Extremity: Grossly WFL Strength: Right Upper Extremity: Grossly 4/5 throughout Left Upper Extremity: Grossly 4/5 throughout Right Lower Extremity: Pain at upon any muscle resistance, so no formal could be completed. Patient very guarded due to right hip pain Left Lower Extremity: Grossly 5/5 throughout Sensation: WNL Bed Mobility/Transfers: Supine at 45 degree HOB, to EOB with supervision EOB, to supine, min assist x2 with LEs, and repositioned to HOB. Gait: Unable due to pain Balance: Static Sitting: Good Dynamic Sitting: Fair Static Standing: Unable to assess Dynamic Standing: Unable to assess Special Tests: Mobility Limitations Standardized Measure [facility] AM-PAC 6 clicks Basic Mobility Inpatient Short Form: Raw Score: 16 standardized Score: CMS Score: 54% disability Informed Consent/Education: Patient instructed in purpose of PT consult and plan of care. Assessment: Patient is a 85 year old male referred to physical therapy services with the diagnosis of weakness associated with potential GI bleed, and chronic right bursitis, with recent development of progressive weakness and lack of appetite. Patient presents with clinical signs and symptoms consistent with right hip pain and weakness, as demonstrated by the following impairment level findings: Poor strength appreciated with global extremity testing, particularly at the right LE, patient intolerant to weightbearing, fatigues quickly after any activity. Impairments are contributing to the following functional limitations: AMPAC score of 54% disability, inability tolerate weightbearing functional activities, can barely tolerate 2 minutes of sitting at the edge of the bed, requires assist for return to bed. He is not functioning at premorbid level, and currently not safe and able to return home. Patient requires inpatient physical therapy services to return to premorbid level function for safe return home, which includes ability to complete independent ambulation with RW, complete all functional transfers independently, and tolerate light household activities. If he is unable to achieve this within an appropriate time, or fails to progress towards this, home health service or rehab stay will be created. As patient's condition evolves, discharge planning will be more clear. Patient is assessed as a Moderate 31725 complexity based on the following: History: See PMH Examination: See above impairments and functional rotations Presentation: Evolving Decision Making: Moderate Goals: Goals X1 week 1. Supine-Sit independent 2. Sit-Supine independent 3. Sit-Stand independent 4. Stand-Sit independent 5. Bed-Chair independent with RW 6. Chair-Bed independent with RW 7. Gait household distance of 50 feet, with RW 8. Stairs 3 steps, supervision with RW 9. Independent with home exercise program 10. Balance but with standing activities, dynamic and static. Plan of Care/Treatment Plan: 1-2x/day, 7 days/week x 1 week. Plan of care has been reviewed with the FIELD TECH providing the service under Physical Therapy direction. Initiate Physical Therapy intervention for strengthening, bed mobility, transfers, gait, stairs, balance training, use of assistive device. DISCHARGE RECOMMENDATIONS: At this time, patient responds favorably to inpatient PT, home with home health PT will be appropriate. If he continues to fail and have no progress, rehab stay will be required. TREATMENT CODE/TIME: 30 minutes, [id number] Documented with [employer] voice recognition software.
[2020-07-02 12:03] LABS: Procalcitonin 0.1 ng/mL
--- NOTE | 2020-07-02 12:14 | PHA.REVIEW ---
Pharmacy Admission Review - Admission Clinical Review (Last Updated 07/02/20 @ 11:52 by Madonna Chisholm NP) Heme positive stool (Acute) Failure to thrive (Acute) Weakness (Acute) Fall (Acute) Folate deficiency (Acute) B12 deficiency (Acute) Deep venous thrombosis of left popliteal vein (Acute) Edema of both lower extremities (Acute) Discharge planning issues (Acute) DVT prophylaxis (Acute) No Known Allergies Allergy (Unverified 06/26/20 19:26) Height 5 ft 10 in Weight 90 kg - Renal Dosing Renal Dosing: BUN 84 mg/dL (7-18) H* 07/02/20 06:30 Creatinine 1.90 mg/dL (0.70-1.30) H 07/02/20 06:30 Medications needing adjustments: Reviewed (Crcl ~30 mL/min. Current meds okay (no dose adjustments recommended for apixaban when used for DVT/PE treatment).) - Anticoagulation Anticoagulation: Hgb 11.0 g/dL (13.5-17.5) L 07/02/20 06:30 Hct 31.7 % (40.0-50.0) L 07/02/20 06:30 Plt Count 263 10^3/uL (130-400) 07/02/20 06:30 Creatinine 1.90 mg/dL (0.70-1.30) H 07/02/20 06:30 DVT Prohphylaxis: N/A Therapeutic Anticoagulation: Reviewed Medications: Apixaban (day 7 of apixaban 10 mg bid ends 07/04/2020 after PM dose. Provider aware of mention of heme+ stools in ED, monitoring.) - Opiate Usage Evaluate Pain Scale/Pains Meds: N/A - Relevant Labs Sodium 140 mmol/L (136-145) 07/02/20 06:30 Potassium 4.5 mmol/L (3.5-5.1) 07/02/20 06:30 Chloride 109 mmol/L (98-107) H 07/02/20 06:30 Electrolytes, C-Reactive P, ESR: Reviewed - DM Control DM Control: Glucose 176 mg/dL (74-106) H 07/02/20 06:30 Insulin Dosing: Reviewed (Mentioned to provider. No DM noted in pts history or no A1c. There are other potential causes of hyperglycemia.) - Heart Failure/MS EF%, OSCAR's, B-Blockers, Diuretics: N/A - BP Control BP Control: Blood Pressure 92/55 Blood Pressure 97/57 Blood Pressure 100/55 Blood Pressure 105/61 Blood Pressure 105/61 If elevated: Reviewed (Hypotension- parameters added to amlodipine prior to provider holding med. HR-92) - Qtc Review If Elevated: N/A - IV to PO Switch IV Medications: Reviewed - Home Meds Home Med List reviewed: Reviewed (Aspirin may enhance the bleeding risk of apixaban; monitor. Multiple doses of vitamin D increase the risk of toxicity.) Relevent Home Meds Not ordered & why?: multivitamin w/minerals - Current meds Current Medication Order Review: Reviewed - Comments Comments/Follow Ups: Watch BP, HR, H/H, BG, SCr, for culture results and for med changes (IV to po protonix, renal adjustements if needed, restarting amlodipine pending BP). Antibiotic Activity - Pharmacy Antibiotic Review Pharmacy Antibiotic Activity: C/S review (Blood cultures pending. One time dose of ceftriaxone ordered. Watch for additional dosing if needed.)
[2020-07-02] MEDS: cefTRIAXone 1 GM/50 ML BAG IVPB (12:56)
[2020-07-02 13:29] LABS: Lactate 2.6 mmol/L (0.6-1.4)
--- NOTE | 2020-07-02 13:29 | DI.RAD_ITS ---
EXAM: XR PORTABLE CHEST AP CLINICAL HISTORY: leukocytosis, weakness TECHNIQUE: 2D digital imaging was performed. COMPARISON: CR XR PORTABLE CHEST AP from 06/27/2020 FINDINGS: LUNGS: Clear. No pleural abnormality seen. HEART: Normal. MEDIASTINUM: Normal. OTHER FINDINGS: Degenerative changes in the spine. IMPRESSION: No acute pulmonary findings. DATA REPOSITORY: RADIATION DOSE DELIVERED:
[2020-07-02 13:36] LABS: C-Reactive Protein 0.19 mg/dL (0.0-0.3)
--- NOTE | 2020-07-02 13:43 | DI.VRAD_ITS ---
PROCEDURE INFORMATION: Exam: XR Chest, 1 View Exam date and time: 07/02/2020 1:23 PM Age: 85 years old Clinical indication: Other: Weakness TECHNIQUE: Imaging protocol: XR of the chest Views: 1 view. COMPARISON: CR XR PORTABLE CHEST AP 06/27/2020 10:39 AM FINDINGS: Lungs: Unremarkable. No consolidation. Pleural space: Unremarkable. No pleural effusion. No pneumothorax. Heart/Mediastinum: The cardiomediastinal silhouette is fairly stable in appearance. Bones/joints: Degenerative changes again involve the spine. IMPRESSION: No evidence for acute pulmonary disease. Dictated and Authenticated by: Nicholas Garcia MD. Ordering:DELTA Peacock MD
[2020-07-02] MEDS: Normal Saline 1,000 ML 1000 ML IV (13:45)
[2020-07-02 15:28] LABS: Bilirubin Negative (Negative); Blood Negative (Negative); Clarity Clear (Clear); Glucose Negative (Negative); Ketones Negative (Negative); Leukocyte Esterase Negative (Negative); Nitrite Negative (Negative); Specific Gravity 1.015 (1.005-1.025); Urobilinogen 0.2 EU/dL (Up TO 0.2); pH 5.5 (5-8)
[2020-07-02] MEDS: Lidocaine Patch Removal 1 EACH TD (20:32)
[2020-07-02] MEDS: Normal Saline 1,000 ML 125 ML IV (21:31)
[2020-07-02] MEDS: Atorvastatin 20 MG TAB PO (21:32)
[2020-07-03] VITALS (12 sets, daily range): BP systolic 101–136; BP diastolic 58–74; PULSE 59–81; RESP 15–18; TEMP 36.1–36.7; O2SAT 96–100
--- NOTE | 2020-07-03 | DI.CT_ITS ---
EXAM: CT HEAD WO CLINICAL HISTORY: dizziness, fall. TECHNIQUE: Imaging Protocol: Axial computed tomography images with coronal and sagittal reformatted images were created and reviewed COMPARISON: CT CT HEAD CERVICAL SPINE WO from 07/01/2020 FINDINGS: Ventricles and Extra axial spaces: Normal in size and morphology for the patient's age. Hemorrhage: None. Cerebral parenchyma: Mild atrophy. Mild white matter changes consistent with small vessel disease. Old inferior right cerebellar infarct. Midline shift: None. Brainstem/Cerebellum: Normal. Calvarium: Normal. Visualized Paranasal sinuses/Mastoids: Clear. IMPRESSION: Old inferior right cerebellar infarct. No acute abnormality. RADIATION DOSE DELIVERED: Total DLP Total DLP DATA REPOSITORY: All CT scans at this facility are submitted to the National Radiology Data Registry (NRDR) Dose Index Registry (DIR) with the [employer] (ACR). RADIATION OPTIMIZATION: All CT scans at this facility use at least one of these dose optimization te chniques: automated exposure control; mA and/or kV adjustment per patient size (includes targeted exa ms where dose is matched to clinical indication); or iterative reconstruction.
--- NOTE | 2020-07-03 | DI.CT_ITS ---
EXAM: CT ABDOMEN PELVIS WO CLINICAL HISTORY: bleeding, leukocytosis. TECHNIQUE: Imaging Protocol: Axial computed tomography images with coronal and sagittal reformatted images were created and reviewed. Oral: yes / no COMPARISON: CT CT ABDOMEN PELVIS WO from 06/26/2020 FINDINGS: The exam is limited by patient motion. The lung bases are clear. The heart size is normal. There i s minimal coronary artery calcification. There is again noted to be dilatation of the distal abdomin al aorta which measures 3.2 cm. There is a question of a tiny pericardial effusion versus motion art ifact. The liver, spleen, adrenals and pancreas are unremarkable. Stones are noted in the gallbladd er. There is no gallbladder wall thickening. There are bilateral renal cysts. There is a right par apelvic cyst. The urinary bladder is markedly distended. The prostate is mildly enlarged. No mass or calcifications are seen. There is no bowel dilatation or inflammatory change. The appendix appea rs normal. There are numerous diverticula of the descending colon but no evidence of diverticulitis. There is no small bowel dilatation. There is a diverticulum of the 2nd portion of the duodenum. S coliosis and degenerative changes are noted in the spine. IMPRESSION: Markedly distended urinary bladder. Bilateral renal cysts. Cholelithiasis without evidence of lily cystitis . RADIATION DOSE DELIVERED: Total DLP DATA REPOSITORY: All CT scans at this facility are submitted to the National Radiology Data Registry (NRDR) Dose Index Registry (DIR) with the [employer] (ACR). RADIATION OPTIMIZATION: All CT scans at this facility use at least one of these dose optimization te chniques: automated exposure control; mA and/or kV adjustment per patient size (includes targeted exa ms where dose is matched to clinical indication); or iterative reconstruction.
[2020-07-03] MEDS: Normal Saline 1,000 ML 125 ML IV ×2 (05:12→15:40)
[2020-07-03 08:03] LABS: Lactate 1.7 mmol/L (0.6-1.4)
[2020-07-03 08:07] LABS: Abs Immature Grans 0.09 10^3/uL (0.0-0.06); Absolute Basophil Count 0.07 10^3/uL (0.0-0.2); Basophils % 0.6; Eosinophils % 4.4; Immature Grans % 0.8; Lymphocytes % 35.7; MCH 31.5 pg (27.0-33.0); MCHC 33.2 % (32.0-36.0); MCV 94.9 fL (80-95); MPV 10.3 fL (8.0-11.0); Neutrophils % 52.5; Nucleated RBC 0 %; Platelet Count 205 10^3/uL (130-400); RBC 2.35 10^6/uL (4.36-5.78); RDW 14.9 % (11.8-14.1); RDW-SD 50.4 fL; WBC 11.92 10^3/uL (4.4-10.8)
[2020-07-03 08:08] LABS: Absolute Eosinophil Count 0.52 10^3/uL (0.0-0.7); Absolute Lymphocyte Count 4.26 10^3/uL (1.2-3.4); Absolute Monocyte Count 0.72 10^3/uL (0.1-0.8); Absolute Neutrophil Count 6.26 10^3/uL (1.2-6.7)
[2020-07-03] MEDS: Apixaban 5 MG TAB 10 MG PO ×2 (08:09→19:33)
[2020-07-03] MEDS: Folic Acid 1 MG TAB PO (08:09)
[2020-07-03] MEDS: Acetaminophen 500 MG TAB 1000 MG PO ×2 (08:09→16:20)
[2020-07-03] MEDS: Cyanocobalamin 500 MCG TAB 1000 MCG PO (08:09)
[2020-07-03] MEDS: Aspirin E.C. 81 MG TABEC PO (08:09)
[2020-07-03] MEDS: Cholecalciferol (Vitamin D3) 1,000 UNIT TAB 2000 UNITS PO (08:09)
[2020-07-03] MEDS: Normal Saline Flush 10 ML SYR IVP ×4 (08:10→19:34)
[2020-07-03] MEDS: Pantoprazole 40 MG VIAL IVP ×2 (08:10→19:33)
[2020-07-03 08:11] LABS: HCT 22.3 % (40.0-50.0); HGB 7.4 g/dL (13.5-17.5)
[2020-07-03] MEDS: Lidocaine 5% Patch 1 PATCH TP (08:11)
[2020-07-03 08:20] LABS: BUN 60 mg/dL (7-18); CREATININE 1.57 mg/dL (0.70-1.30); Chloride 114 mmol/L (98-107); Glucose 122 mg/dL (74-106); Magnesium 1.8 mg/dL (1.8-2.4); Potassium 4.2 mmol/L (3.5-5.1); Sodium 141 mmol/L (136-145)
[2020-07-03 08:33] LABS: Hemoglobin A1C 6.5 % (<5.7)
--- NOTE | 2020-07-03 09:22 | PDOC.CMPRO ---
- If Service Date Differs Date of service: 07/03/20 Time of Service: 09:23 Care Management Progress Note S/O: Bruce agrees to health and rehab referral. CM faxed the referral anticipate he may be able to transfer on Saturday pending bed offer. A: Bruce is a 85 year old male with a recent admission, readmitted with Falls, failure to thrive, GI bleed P: Bruce remains acute at this time, he will be ready for discharge once he has had a complete medical work up. CM will continue to assess for discharge needs and coordinate disposition. Transportation pending disposition.
--- NOTE | 2020-07-03 09:40 | PGE_ITS ---
Date of Service Date of service: 07/03/20 Time of Service: 09:40 Assessment and Plan Assessment and plan (1) GI bleeding: Start date: 07/03/20 Start time: 10:00 Status: Chronic Assessment and plan: On eliquis for DVT. Prior to admission patient was not on PPI. Initially hemoglobin stable, at 10 and 11, however this am hemoglobin 7.4 down from 11. Will consult surgery and recheck hemoglobin at 1400 and transfuse if needed. Qualifiers: GI bleed type/associated pathology: melena Qualified Code(s): K92.1 - Melena (2) Heme positive stool: Start date: 07/03/20 Start time: 09:59 Status: Acute Assessment and plan: As above (3) Leukocytosis: Start date: 07/03/20 Start time: 09:52 Status: Acute Assessment and plan: Procalcitonin elevated. Lactate elevated up to 2.6 improved overnight with IVF at 1.7 today No clear source of infection U/a negative, was given dose ceftriaxone yesterday with improving leukocytosis. Will continue for a 3 day course. Will culture ua CT abd r/o any sources CXR negative. (4) New onset type 2 diabetes mellitus: Start date: 07/03/20 Start time: 09:55 Status: Acute Assessment and plan: Elevated bgl, A1c done 6.5 patient states no previous diabetes will consult clinical systems educator, place on SSI, will need glucometer on discharge from SNIF. Will start on metformin on discharge with carb controlled diet, and have PCP follow up for further management. Likely this can be controlled with Diet and metformin. (5) Fall: Start date: 07/03/20 Start time: 09:49 Status: Acute Assessment and plan: PT/OT No injury Qualifiers: Encounter type: initial encounter Qualified Code(s): W19.XXXA - Unspecified fall, initial encounter (6) Failure to thrive: Start date: 07/03/20 Start time: 09:49 Status: Acute Assessment and plan: Failed at home This appears to be in setting of returning home after being discharged with DVT and on eliquis. He denies abdominal pain, does endorse lack of appetite, Will also r/o sources of infection given leukocytosis and weakness. He would benefit from SNIF for rehab Qualifiers: Failure to thrive age range: in adult Qualified Code(s): R62.7 - Adult failure to thrive (7) Acute kidney injury superimposed on chronic kidney disease: Start date: 07/03/20 Start time: 09:50 Status: Acute Assessment and plan: From dehydration, improving with IV hydration (8) Dehydration: Start date: 07/03/20 Start time: 09:50 Status: Acute Assessment and plan: From lack of appetite not eating or drinking, Rehydrate with IVF (9) Weakness: Start date: 07/03/20 Start time: 09:51 Status: Acute Assessment and plan: As above. PT/OT (10) Hypertension: Start date: 07/03/20 Status: Chronic Assessment and plan: BP improved but soft continue IVF, continue to hold medication at this time. Orthostatic bp . Qualifiers: Hypertension type: essential hypertension Qualified Code(s): I10 - Essential (primary) hypertension (11) Trochanteric bursitis, right hip: Start date: 07/03/20 Start time: 09:51 Status: Chronic Assessment and plan: Seen by Dr. Young last admission, scheduled tylenol and lidoderm patches were successful on last admission for controlling pain, will continue at this time. (12) Deep venous thrombosis of left popliteal vein: Start date: 07/03/20 Start time: 09:55 Status: Acute Assessment and plan: Found on last admission. Started on eliquis, will continue 10 mg PO BID x 7 days than decrease to 5 mg bid. He did have melena stools and positive hemtest. He was not on a PPI at home, will add PPI BID and monitor stools. Qualifiers: Chronicity: acute Qualified Code(s): I82.432 - Acute embolism and thrombosis of left popliteal vein (13) Edema of both lower extremities: Start date: 07/03/20 Start time: 09:59 Status: Chronic Assessment and plan: Chronic but was found to have DVT last admission, as above. 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 Will have PT evaluate, he did fail at home. (17) DVT prophylaxis: Start date: 07/03/20 Start time: 09:59 Status: Acute Assessment and plan: On eliquis Above case discussed with Dr. Jensen who is in agreement. Subjective Subjective Patient reports: no new complaints Interval history since last seen: No complaints. No nausea or vomiting. He continues to have hematocheza. Leukocytosis present with elevated procalcitonin and elevated lactate with no clear source. CT to r/o any abdominal process, will have to be without contrast given renal function. Pain controlled with lidoderm patch and tylenol. Hemoglobin did drop from 11 to 7.4, will consult surgery. Exam Narrative Exam Narrative: Elderly young for looking age male lying in bed AAOx3 pleasant and very talkative. Intelligent Eyes PERRLA, lips dry and cracking HR RRR no ectopy or murmur No labored breathing, LSC No abdominal pain, abd soft nontender Skin in tact Objective Objective Clinical Data: Abnormal lab results 07/02/20 07/02/20 07/03/20 Range/Units 06:30 13:15 07:55 WBC (4.4-10.8) 10^3/uL RBC (4.36-5.78) 10^6/uL Hgb (13.5-17.5) g/dL Hct (40.0-50.0) % RDW (11.8-14.1) % Absolute Lymphocytes (1.2-3.4) 10^3/uL VBG Lactate 2.6 H* (0.6-1.4) mmol/L Chloride 109 H 114 H (98-107) mmol/L Carbon Dioxide 17.3 L 19.0 L (21.0-32.0) mmol/L Anion Gap 13.7 H (3-11) mmol/L BUN 84 H* 60 H D (7-18) mg/dL Creatinine 1.90 H 1.57 H (0.70-1.30) mg/dL Glucose 176 H 122 H (74-106) mg/dL Hemoglobin A1c (<5.7) % Calcium 8.0 L (8.5-10.1) mg/dL Total Protein 5.9 L (6.4-8.2) g/dL Albumin 3.0 L (3.4-5.0) g/dL 07/03/20 07/03/20 07/03/20 Range/Units 07:55 07:55 07:55 WBC 11.92 H (4.4-10.8) 10^3/uL RBC 2.35 L (4.36-5.78) 10^6/uL Hgb 7.4 L D (13.5-17.5) g/dL Hct 22.3 L D (40.0-50.0) % RDW 14.9 H (11.8-14.1) % Absolute Lymphocytes 4.26 H (1.2-3.4) 10^3/uL VBG Lactate 1.7 H (0.6-1.4) mmol/L Chloride (98-107) mmol/L Carbon Dioxide (21.0-32.0) mmol/L Anion Gap (3-11) mmol/L BUN (7-18) mg/dL Creatinine (0.70-1.30) mg/dL Glucose (74-106) mg/dL Hemoglobin A1c 6.5 H (<5.7) % Calcium (8.5-10.1) mg/dL Total Protein (6.4-8.2) g/dL Albumin (3.4-5.0) g/dL Vital Signs Temperature 36.3 C L 07/03/20 07:35 Temperature Source Temporal Artery Scan 07/03/20 07:35 Pulse 81 07/03/20 07:35 Pulse Rhythm Regular 07/03/20 01:10 Pulse 92 H 07/02/20 07:50 Respiratory Rate 17 07/03/20 07:35 Respiratory Effort Non-Labored 07/03/20 01:10 Respiratory Depth Normal 07/03/20 01:10 Respiratory Pattern Normal 07/03/20 01:10 Blood Pressure 112/71 07/03/20 07:35 Blood Pressure Mean 71 07/02/20 07:45 Blood Pressure Position Supine 07/02/20 06:04 Pulse Oximetry 96 07/03/20 07:35 Oxygen Delivery Method Room Air 07/03/20 07:35 Oxygen Flow Rate 0 07/03/20 07:35 Pain Level 1 07/03/20 08:09 Comment 07/02/20 16:10 Intake & Output 07/02/20 07/02/20 07/03/20 11:59 23:59 11:59 Intake Total 2076.45 / 4640.000 2563.550 / 4640.000 960.417 / 960.417 Output Total 1150 / 1150 950 / 950 Balance 2076.45 / 3490.000 1413.550 / 3490.000 10.417 / 10.417 Weight 90 kg 90 kg Intake: IV 1286.45 / 3130.000 1843.550 / 3130.000 960.417 / 960.417 Oral 790 / 1510 720 / 1510 Output: Urine 1150 / 1150 950 / 950 Other: Urine Color Yellow Yellow Urine Appearance Clear Clear Urine Odor Normal Normal Comment Void x1 in the urinal. Urine specimen obtained for urinalysis at this time per MD order. Voiding Methods Urinal Urinal Laboratory Results WBC 11.92 10^3/uL (4.4-10.8) H 07/03/20 07:55 RBC 2.35 10^6/uL (4.36-5.78) L 07/03/20 07:55 Hgb 7.4 g/dL (13.5-17.5) L D 07/03/20 07:55 Hct 22.3 % (40.0-50.0) L D 07/03/20 07:55 MCV 94.9 fL (80-95) 07/03/20 07:55 MCH 31.5 pg (27.0-33.0) 07/03/20 07:55 MCHC 33.2 % (32.0-36.0) 07/03/20 07:55 RDW 14.9 % (11.8-14.1) H 07/03/20 07:55 Plt Count 205 10^3/uL (130-400) 07/03/20 07:55 MPV 10.3 fL (8.0-11.0) 07/03/20 07:55 Immature Gran % 0.8 07/03/20 07:55 Neutrophils % 52.5 07/03/20 07:55 Lymphocytes % 35.7 07/03/20 07:55 Monocytes % 6.0 07/03/20 07:55 Eosinophils % 4.4 07/03/20 07:55 Basophils % 0.6 07/03/20 07:55 Nucleated RBC % 0 % 07/03/20 07:55 Absolute Neutrophils 6.26 10^3/uL (1.2-6.7) 07/03/20 07:55 Absolute Lymphocytes 4.26 10^3/uL (1.2-3.4) H 07/03/20 07:55 Absolute Monocytes 0.72 10^3/uL (0.1-0.8) 07/03/20 07:55 Absolute Eosinophils 0.52 10^3/uL (0.0-0.7) 07/03/20 07:55 Absolute Basophils 0.07 10^3/uL (0.0-0.2) 07/03/20 07:55 VBG Lactate 1.7 mmol/L (0.6-1.4) H 07/03/20 07:55 Sodium 141 mmol/L (136-145) 07/03/20 07:55 Potassium 4.2 mmol/L (3.5-5.1) 07/03/20 07:55 Chloride 114 mmol/L (98-107) H 07/03/20 07:55 Carbon Dioxide 19.0 mmol/L (21.0-32.0) L 07/03/20 07:55 Anion Gap 8.0 mmol/L (3-11) 07/03/20 07:55 BUN 60 mg/dL (7-18) H D 07/03/20 07:55 Creatinine 1.57 mg/dL (0.70-1.30) H 07/03/20 07:55 Estimated GFR/1.73 m2 42.40 (mL/min/1.73m2) 07/03/20 07:55 Glucose 122 mg/dL (74-106) H 07/03/20 07:55 Hemoglobin A1c 6.5 % (<5.7) H 07/03/20 07:55 Calcium 8.0 mg/dL (8.5-10.1) L 07/03/20 07:55 Magnesium 1.8 mg/dL (1.8-2.4) 07/03/20 07:55 Total Bilirubin 0.5 mg/dL (0.2-1.0) 07/02/20 06:30 AST 15 U/L (15-37) 07/02/20 06:30 ALT 35 U/L (16-63) 07/02/20 06:30 Alkaline Phosphatase 70 U/L (46-116) 07/02/20 06:30 C-Reactive Protein 0.19 mg/dL (0.0-0.3) 07/02/20 13:15 Total Protein 5.9 g/dL (6.4-8.2) L 07/02/20 06:30 Albumin 3.0 g/dL (3.4-5.0) L 07/02/20 06:30 Procalcitonin 0.1 ng/mL 07/02/20 06:30 Urine Color Yellow (Yellow) 07/02/20 15:15 Urine Clarity Clear (Clear) 07/02/20 15:15 Urine pH 5.5 (5-8) 07/02/20 15:15 Ur Specific [place] 1.015 (1.005-1.025) 07/02/20 15:15 Urine Protein Negative mg/dL (Negative) 07/02/20 15:15 Urine Ketones Negative mg/dL (Negative) 07/02/20 15:15 Urine Blood Negative (Negative) 07/02/20 15:15 Urine Nitrite Negative (Negative) 07/02/20 15:15 Urine Bilirubin Negative (Negative) 07/02/20 15:15 Urine Urobilinogen 0.2 EU/dL (Up TO 0.2) 07/02/20 15:15 Ur Leukocyte Esterase Negative (Negative) 07/02/20 15:15 Urine Glucose Negative mg/dL (Negative) 07/02/20 15:15 Patient ABO/Rh A Positive 07/02/20 06:30 Antibody Screen Negative 07/02/20 06:30
--- NOTE | 2020-07-03 10:21 | PTTR_ITS ---
Date of service: 07/03/20 Time of Service: 10:21 PT Notes Visit Reasons: FAILURE TO THRIVE, GI BLEED 07/03/2020 SUBJECTIVE: Bruce complains of right hip pain with movement and standing. He was unable to stand yesterday due to pain. He is agreeable to trying it today. OBJECTIVE: 85706, [id number] TRANSFERS Supine to sit: S Sit to supine: Min A Sit to stand: Mod A Stand to sit: Min A GAIT Device: FWW Weight bearing: AT Assist: Mod A Distance: None; Pt stood x 30 seconds at EOB Deviation: Unable to take steps due to right hip pain THEREX: Gentle ROM and light strengthening bilateral LE's to his tolerance. See flow sheet. ASSESSMENT/PLAN: Improvement in mobility slightly. Able to get to standing position but did not want to attempt gait due to increase in right hip pain. Continue to progress mobility and strength as he is able to tolerate. Treatment time: 25' Whit Nava PTA Clinic location: [facility] [place], [place]
--- NOTE | 2020-07-03 10:41 | DI.VRAD_ITS ---
PROCEDURE INFORMATION: Exam: CT Abdomen And Pelvis Without Contrast Exam date and time: 07/03/2020 10:19 AM Age: 85 years old Clinical indication: Pain; Other: Bleeding, leukocytosis TECHNIQUE: Imaging protocol: Computed tomography of the abdomen and pelvis without contrast. COMPARISON: CT ABDOMEN PELVIS WO 06/26/2020 9:27 PM FINDINGS: Heart: There is suggestion a small pericardial effusion. Some coronary artery calcifications are present. Liver: Normal. No mass. Gallbladder and bile ducts: The gallbladder is markedly distended with several gallstones present. No intrahepatic biliary dilatation is identified. Pancreas: Normal. No ductal dilation. Spleen: Normal. No splenomegaly. Adrenals: Normal. No mass. Kidneys and ureters: The kidneys demonstrate a cyst in the right renal pelvis measuring 3.4 x 3.3 by 3.5 cm. This lesion measures 3 Hounsfield units and is consistent with a simple cyst. There is mild hydronephrosis of the right kidney but no hydroureter. The left kidney there is a arising from the lower pole from the cortex it measures 2.7 x 3.1 x 3.1 cm. It measures 3 Hounsfield units and therefore is consistent with a simple cyst. 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 There is a large amount of stool in the rectal vault consistent with an impaction. The sigmoid colon is moderately distended. There are large number of diverticula involving the descending colon. No CT evidence of diverticulitis. Appendix: No evidence of appendicitis. Intraperitoneal space: Unremarkable. No free air. No significant fluid collection. Vasculature: The infrarenal abdominal aorta measures up to 3.2 cm. Lymph nodes: Unremarkable. No enlarged lymph nodes. Bladder: The bladder is markedly distended. Reproductive: Unremarkable as visualized. Bones/joints: Bone windows demonstrates discogenic degenerative changes throughout the visualized spine. There is vacuum disc phenomena at L5-S1. Soft tissues: Unremarkable. Other findings: Limitation: Motion artifact. IMPRESSION: 1. Most recent exam patient has developed marked bladder distension. The prostate is prominent but clinical correlation is recommended to exclude neurogenic bladder. 2. Pericardial effusion on today's exam. 3. Infrarenal abdominal aorta measuring up to 3.2 cm. 4. Bilateral renal cyst with mild dilatation of the collecting system on the right without hydroureter. These changes are stable compared to prior exam. 5.: There is a large amount of in the rectal vault on today's exam consistent with a fecal impaction. Dictated and Authenticated by: Yasemin Bowden MD. Ordering:DELTA Peacock MD
[2020-07-03] MEDS: Polyethylene Glycol 3350 17 GM PACKET PO (11:09)
[2020-07-03] MEDS: Docusate Sodium 100 MG CAP PO (11:09)
[2020-07-03] MEDS: cefTRIAXone 1 GM/50 ML BAG IVPB (11:09)
--- NOTE | 2020-07-03 12:02 | DI.VRAD_ITS ---
PROCEDURE INFORMATION: Exam: CT Head Without Contrast Exam date and time: 07/03/2020 11:50 AM Age: 85 years old Clinical indication: Injury or trauma; Fall TECHNIQUE: Imaging protocol: Computed tomography of the head without contrast. 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 There is a moderate amount of deep and cortical atrophy with compensatory enlargement of the cortical sulci and ventricular system. Ventricles: Normal. No ventriculomegaly. Bones/joints: Unremarkable. No acute fracture. Sinuses: Visualized sinuses are unremarkable. No fluid levels. Mastoid air cells: Visualized mastoid air cells are well aerated. Vasculature: Vertebral artery calcifications are present. Soft tissues: Unremarkable. IMPRESSION: Changes with right inferior cerebellar infarct and atrophy with compensatory enlargement of cortical sulci in a trigger system. No acute change. No evidence of acute intracranial hemorrhage. Dictated and Authenticated by: Yasemin Bowden MD. Ordering:DELTA Peacock MD
[2020-07-03 14:33] LABS: HCT 20.4 % (40.0-50.0); HGB 6.9 g/dL (13.5-17.5)
--- NOTE | 2020-07-03 14:42 | W.SURGCON ---
Date of service: 07/03/20 Time of Service: 15:06 Assessment and Plan Assessment and plan (1) GI bleeding: Status: Chronic Assessment and plan: A\\ 85 year old male recently started on Eliquis for a popliteal DVT. Discharged on 06/30. Re-admitted on 07/02 for failure to thrive, fall and melena. Hgb yesterday stable. Today he had a drop from 11 to 7.4. Repeat Hgb down to 6.9. Some of the drop may have been do to re-hydration with IV fluids. Results of enema today for stool impaction revealed black, gelatinous stool per nursing. Patient has no abdominal pain and CT scan didn't show any acute findings. 30 minute discussion with Mr. Ceballos about his bleeding. Most likely source is his Stomach and duodenum. Discussed EGD to see if he has an ulcer and to make sure he is not still acutely bleeding. Other option would be blood transfusion and continued monitoring of his Hgb/Hct overnight. If his Hgb drops again after transfusion then we would proceed with EGD. Mr. Ceballos is very tearful. He is appreciative for everything that is being done but he is tired of tests. He would like to get a blood transfusion and see if his Hgb stays stable after that. If his Hgb drops again then he is agreeable to an EGD tomorrow. P\\ 1. Blood transfusion 2. repeat Hgb 1 hour after blood transfusion and in the am 3. may have clear liquids today until midnight then NPO for possible EGD tomorrow Appreciate the opportunity to assist in the care of your patient Qualifiers: GI bleed type/associated pathology: melena Qualified Code(s): K92.1 - Melena History of Present Illness History of Present Illness Chief Complaint: GI Bleed Narrative: Mr. Ceballos is a pleasant 85 year old male who was admitted by Medicine for weakness. he had been admitted recently to hospitalist service and discharged home on 06/30 for Popiteal DVT. He presented back to the hospital on 07/02 after falling due to weakness. At home he endorses poor appetite leading him to not eat and drink likely contributing to weakness. He denied LOC, hitting his head and syncope. On discharge he was on eliquis for DVT, he did have heme positive stool in the ED, denied abdominal pain. BMs are dark not red, H/H was stable. Labs in the ED showed leukocytosis, afebrile, BUN 84, creatinine 1.90. Mr. 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 He was failing at home with lack of appetite contributing to weakness. This morning his Hgb dropped by 2.5 gm. Repeat Hgb droped to 6.9. CT scan of his abdomen revealed a duodenal diverticulum and impacted stool in his rectum. There was no stomach or duodenal wall thickening and no fat stranding around the stomach or duodenum. No free air. Mr. Ceballos was started on BID PPI yesterday. He has no history of GERD, Heart Burn or gastric ulcers. He denies dysphagia Consults Consult date: 07/03/20 Requesting physician: Madonna Chisholm Review of Systems Constitutional Constitutional: Denies fever(s), Denies headache(s), Reports lethargy, Denies night sweats, Reports poor appetite and Denies weight loss Eyes Eyes: Denies blurry vision ENT Ears, Nose, Mouth, and Throat: Denies dysphagia, Denies headache(s) and Denies hoarseness Cardiovascular Cardiovascular: Denies chest pain, Denies chest pain at rest, Denies irregular heart rhythm, Denies palpitations and Denies dyspnea Respiratory Respiratory: Denies cough and Denies dyspnea Gastrointestinal Gastrointestinal: Reports as per HPI and Denies dysphagia Genitourinary Genitourinary: Denies hematuria and Reports difficulty urinating Musculoskeletal Musculoskeletal: Reports system reviewed and no additional complaints, except as documented Integumentary/Breasts Skin/Breast: Reports system reviewed and no additional complaints, except as documented Neurologic Neurologic: Reports system reviewed and no additional complaints, except as documented and Denies headache(s) Endocrine Endocrine: Denies palpitations [facility] Medical History Anemia (Inactive) Arthritis (Acute) 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 (Active 05/03/13) Elevated transaminase level (Resolved) Erectile dysfunction (Active) Hip pain (Inactive) Hyperkalemia (Resolved) Hypertension (Chronic) Hypokalemia (Active 05/03/13) Overweight (Active) Uremia (Inactive) Surgical History History of surgery (Active) onsillectomy and adenoidectomy in childhood. Incision and drainage of the neck in childhood. Social History Smoking/Tobacco Use Status: Never Alcohol Intake: current Alcohol Intake frequency: a few times a month Alcohol type: beer Drug use: Never Substance use type: does not use Do you feel safe at home: Yes Do you feel safe in your relationship?: Yes Additional Social history: Lives in [place] with his . 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 Exam Const General: cooperative, comfortable, no acute distress, frail appearing and other (tearful) Orientation: alert and oriented x3 HENMT Head: normocephalic and atraumatic Eyes Pupils: PERRL Resp Effort & Inspection: normal respiratory effort Auscultation: clear to auscultation bilaterally Cardio Rate: regular rate Rhythm: regular rhythm Heart Sounds: no gallops, no murmurs and no rubs GI Inspection: normal to inspection Palpation: soft, no hepatosplenomegaly and nontender Auscultation: normal bowel sounds General: deferred Results Last Vital Signs Temp 97.5 F L 07/03/20 11:07 Pulse 73 07/03/20 11:07 Resp 18 07/03/20 11:07 BP 136/69 07/03/20 11:07 Pulse Ox 100 07/03/20 11:07 Labs Result diagrams: 07/03/20 14:15 07/03/20 07:55 Labs: Laboratory Results - last 24 hr 07/02/20 07/03/20 07/03/20 15:15 07:55 07:55 WBC 11.92 H RBC 2.35 L Hgb 7.4 L D Hct 22.3 L D MCV 94.9 MCH 31.5 MCHC 33.2 RDW 14.9 H Plt Count 205 MPV 10.3 Immature Gran % 0.8 Neutrophils % 52.5 Lymphocytes % 35.7 Monocytes % 6.0 Eosinophils % 4.4 Basophils % 0.6 Nucleated RBC % 0 Absolute Neutrophils 6.26 Absolute Lymphocytes 4.26 H Absolute Monocytes 0.72 Absolute Eosinophils 0.52 Absolute Basophils 0.07 VBG Lactate Sodium 141 Potassium 4.2 Chloride 114 H Carbon Dioxide 19.0 L Anion Gap 8.0 BUN 60 H D Creatinine 1.57 H Estimated GFR/1.73 m2 42.40 Glucose 122 H Hemoglobin A1c Calcium 8.0 L Magnesium 1.8 Urine Color Yellow Urine Clarity Clear Urine pH 5.5 Ur Specific [place] 1.015 Urine Protein Negative Urine Ketones Negative Urine Blood Negative Urine Nitrite Negative Urine Bilirubin Negative Urine Urobilinogen 0.2 Ur Leukocyte Esterase Negative Urine Glucose Negative 07/03/20 07/03/20 07/03/20 07:55 07:55 14:15 WBC RBC Hgb 6.9 L* Hct 20.4 L* MCV MCH MCHC RDW Plt Count MPV Immature Gran % Neutrophils % Lymphocytes % Monocytes % Eosinophils % Basophils % Nucleated RBC % Absolute Neutrophils Absolute Lymphocytes Absolute Monocytes Absolute Eosinophils Absolute Basophils VBG Lactate 1.7 H Sodium Potassium Chloride Carbon Dioxide Anion Gap BUN Creatinine Estimated GFR/1.73 m2 Glucose Hemoglobin A1c 6.5 H Calcium Magnesium Urine Color Urine Clarity Urine pH Ur Specific [place] Urine Protein Urine Ketones Urine Blood Urine Nitrite Urine Bilirubin Urine Urobilinogen Ur Leukocyte Esterase Urine Glucose
[2020-07-03] MEDS: Atorvastatin 20 MG TAB PO (19:33)
[2020-07-03] MEDS: Lidocaine Patch Removal 1 EACH TD (20:12)
[2020-07-03 20:13] LABS: COVID-19 RT-PCR UVMMC Result Negative (Negative)
[2020-07-03 21:16] LABS: HCT 23.2 % (40.0-50.0); HGB 8.1 g/dL (13.5-17.5)
[2020-07-04] MEDS: Acetaminophen 500 MG TAB 1000 MG PO ×4 (00:20→23:44)
[2020-07-04] MEDS: Normal Saline 1,000 ML 125 ML IV ×3 (01:55→20:09)
[2020-07-04 03:47] VITALS: BP 114/61; PULSE 63; RESP 18; TEMP 36.5; O2SAT 97
[2020-07-04 07:19] LABS: Absolute Basophil Count 0.06 10^3/uL (0.0-0.2); Absolute Eosinophil Count 0.47 10^3/uL (0.0-0.7); Absolute Lymphocyte Count 2.59 10^3/uL (1.2-3.4); Absolute Monocyte Count 0.49 10^3/uL (0.1-0.8); Absolute Neutrophil Count 5.48 10^3/uL (1.2-6.7); Basophils % 0.7; Eosinophils % 5.1; HCT 22.2 % (40.0-50.0); HGB 7.8 g/dL (13.5-17.5); Immature Grans % 1.1; Lymphocytes % 28.2; MCH 32.4 pg (27.0-33.0); MCHC 35.1 % (32.0-36.0); MCV 92.1 fL (80-95); MPV 10.3 fL (8.0-11.0); Monocytes % 5.3; Neutrophils % 59.6; Nucleated RBC 1 %; Platelet Count 218 10^3/uL (130-400); RBC 2.41 10^6/uL (4.36-5.78); RDW 14.8 % (11.8-14.1); RDW-SD 48.4 fL; WBC 9.19 10^3/uL (4.4-10.8)
[2020-07-04 07:21] VITALS: BP 150/72; PULSE 82; RESP 18; TEMP 35.7; O2SAT 99
[2020-07-04 07:21] LABS: Anion Gap 7.5 mmol/L (3-11); BUN 37 mg/dL (7-18); CO2 19.5 mmol/L (21.0-32.0); CREATININE 1.36 mg/dL (0.70-1.30); Calcium 7.9 mg/dL (8.5-10.1); Chloride 113 mmol/L (98-107); Estimated GFR 50.05 (mL/min/1.73m2); Glucose 101 mg/dL (74-106); Magnesium 1.7 mg/dL (1.8-2.4); Potassium 3.8 mmol/L (3.5-5.1); Sodium 140 mmol/L (136-145)
[2020-07-04 07:50] LABS: Calculated LDL 28 mg/dL (<100); Cholesterol 74 mg/dL (<200); HDL Cholesterol 26 mg/dL (40-60); Triglyceride 103 mg/dL (<150)
[2020-07-04] MEDS: Pantoprazole 40 MG VIAL IVP ×2 (08:26→20:02)
[2020-07-04] MEDS: Normal Saline Flush 10 ML SYR IVP ×2 (08:26→20:04)
[2020-07-04] MEDS: Folic Acid 1 MG TAB PO (08:27)
[2020-07-04] MEDS: Cholecalciferol (Vitamin D3) 1,000 UNIT TAB 2000 UNITS PO (08:27)
[2020-07-04] MEDS: Aspirin E.C. 81 MG TABEC PO (08:27)
[2020-07-04] MEDS: Tamsulosin 0.4 MG CAPCR PO (08:27)
[2020-07-04] MEDS: Cyanocobalamin 500 MCG TAB 1000 MCG PO (08:27)
[2020-07-04] MEDS: MAGNESIUM SULFATE 2 GM/50 ML BAG IVPB (08:28)
[2020-07-04] MEDS: Apixaban 5 MG TAB 10 MG PO ×2 (08:28→20:04)
[2020-07-04] MEDS: Lidocaine 5% Patch 1 PATCH TP (08:57)
--- NOTE | 2020-07-04 09:32 | CMPROGNOTE_ITS ---
- If Service Date Differs Date of service: 07/04/20 Time of Service: 09:32 Care Management Progress Note S/O: Bruce was scheduled to have an EGD today but preferred to defer the procedure. He did receive a unit of blood last night and his H&H were a bit lower this morning. A repeat at 1350 showed a very slight increase. One small tarry stool today. A: Bruce is a 85 year old male with a recent admission, readmitted with Falls, failure to thrive, GI bleed P: Bruce remains acute at this time, he will be ready for discharge once he has had a complete medical work up. A referral has been sent to [facility] where Bruce has agreed to go. Awaiting a bed offer. If accepted, Bruce will transport via facility W/C van. CM will continue to assess for discharge needs and coordinate disposition.
[2020-07-04] MEDS: cefTRIAXone 1 GM/50 ML BAG IVPB (10:24)
--- NOTE | 2020-07-04 10:36 | PT.INTREAT ---
Date of service: 07/04/20 Time of Service: 10:36 PT Notes Visit Reasons: FAILURE TO THRIVE, GI BLEED 07/04/2020 SUBJECTIVE: Bruce stating he is feeling a little better today. He notes he does not want to walk again, he is fearful of falling and that his right hip will hurt him. I did explain benefits from walking but he continues to not want to do it. OBJECTIVE: [id number] TRANSFERS Supine to sit: S Sit to supine: S Bed mobility: S Sit to stand: CGA Stand to sit: CGA GAIT Device: FWW Weight bearing: Full Assist: CGA Distance: None Deviation: Pt stood at EOB with FWW x 1'. Not willing to walk to chair or stand pivot to chair. THEREX: LE strengthening in supine positions to bilateral LE's to his tolerance. See flow sheet. ASSESSMENT/PLAN: Pt is fearful of falling and refusing to walk. He transfers with better ease today to standing position and I feel he is perfectly capable of transferring to the chair with short distance ambulation with minimal assist. Continue to attempt mobilization with short distance walking. Treatment time: 20' Whit Nava PTA Clinic location: [facility] [place], [place]
--- NOTE | 2020-07-04 10:51 | PGE_ITS ---
Date of Service Date of service: 07/04/20 Time of Service: 10:51 Assessment and Plan Assessment and plan (1) GI bleeding: Start date: 07/04/20 Start time: 10:55 Status: Chronic Assessment and plan: On eliquis for DVT. Prior to admission patient was not on PPI. Received one unit yesterday PRBC. Post infusion 8.1 this am 7.8 large liquid black stool last night. Surgery to possibly preform EGD, patient would prefer to wait, will repeat H/H at 1300 and decide at that time. Qualifiers: GI bleed type/associated pathology: melena Qualified Code(s): K92.1 - Melena (2) Heme positive stool: Start date: 07/04/20 Start time: 10:56 Status: Acute Assessment and plan: As above (3) Urinary retention: Start date: 07/04/20 Start time: 11:06 Status: Chronic Assessment and plan: PVR with 800+, patient endorses he only voids BID at home. There was some constipation, he was given an enema with success and able to void [address] obtained revealing Most recent exam patient has developed marked bladder distension. Theprostate is prominent but clinical correlation is recommended to exclude neurogenic bladder. Bilateral renal cyst with mild dilatation of the collecting system on the right without hydroureter. This appears to be chronic in nature. Urology consulted. (4) Leukocytosis: Start date: 07/04/20 Start time: 10:56 Status: Acute Assessment and plan: BC-NGTD, urine culture pending No clear source of infection Day 3 ceftriaxone will d/c after dose. Will recheck procalcitonin in am (5) New onset type 2 diabetes mellitus: Start date: 07/04/20 Start time: 11:00 Status: Acute Assessment and plan: New diagnosis, fingersticks have been under 140 Will need glucometer on discharge from [facility] Check fingersticks BID at home/rehab facility Recommend starting metformin on discharge and carb controlled diet Diabetic education (6) Fall: Start date: 07/04/20 Start time: 11:01 Status: Acute Assessment and plan: PT/OT No injury Qualifiers: Encounter type: initial encounter Qualified Code(s): W19.XXXA - Unspecified fall, initial encounter (7) Failure to thrive: Start date: 07/04/20 Start time: 11:03 Status: Acute Assessment and plan: Failed at home This appears to be in setting of returning home after being discharged with DVT and on eliquis. He denies abdominal pain, does endorse lack of appetite, He would benefit from SNIF for rehab Qualifiers: Failure to thrive age range: in adult Qualified Code(s): R62.7 - Adult failure to thrive (8) Acute kidney injury superimposed on chronic kidney disease: Start date: 07/04/20 Start time: 11:03 Status: Acute Assessment and plan: From dehydration, improving with IV hydration (9) Dehydration: Start date: 07/04/20 Start time: 11:03 Status: Acute Assessment and plan: From lack of appetite not eating or drinking, Rehydrate with IVF (10) Weakness: Start date: 07/04/20 Start time: 11:03 Status: Acute Assessment and plan: As above. PT/OT (11) Hypertension: Start date: 07/04/20 Start time: 11:04 Status: Chronic Assessment and plan: BP improved, elevated today, will hold at this time on resuming antihyptensives until bleeding improves and hemoglobin stable. Resume when stable. Qualifiers: Hypertension type: essential hypertension Qualified Code(s): I10 - Essential (primary) hypertension (12) Trochanteric bursitis, right hip: Start date: 07/04/20 Start time: 11:04 Status: Chronic Assessment and plan: Seen by Dr. Young last admission, scheduled tylenol and lidoderm patches were successful on last admission for controlling pain, will continue at this time. (13) Deep venous thrombosis of left popliteal vein: Start date: 07/04/20 Start time: 11:05 Status: Acute Assessment and plan: Found on last admission. Started on eliquis, will continue 10 mg PO BID x 7 days than decrease to 5 mg bid this discussed with surgery, they agree to keeping him on his anticoagulant. Large loose stool yesterday that was grossly positive Qualifiers: Chronicity: acute Qualified Code(s): I82.432 - Acute embolism and thrombosis of left popliteal vein (14) Edema of both lower extremities: Start date: 07/04/20 Start time: 11:06 Status: Chronic Assessment and plan: Chronic but was found to have DVT last admission, as above. (15) H/O: CVA (cerebrovascular accident): Start date: 07/04/20 Start time: 11:10 Status: Acute Assessment and plan: In 2012 he had a CVA, no residual, (16) Discharge planning issues: Start date: 07/04/20 Start time: 11:09 Status: Acute Assessment and plan: Will likely need SNIF placement for strength. Will have PT evaluate, he did fail at home. (17) DVT prophylaxis: Start date: 07/04/20 Start time: 11:09 Status: Acute Assessment and plan: On eliquis Above case discussed with Dr. Jensen who is in agreement. Subjective Subjective Patient reports: no new complaints Interval history since last seen: lying in bed, no new complaints. No source identified for leukocytosis. Will finish course ceftriaxone today. Recheck procalcitonin in am. Hemoglobin last night post transfusion 8.[address] Blackwell to preform EGD today on patient. He denies abdominal pain, N/V/D. Exam Narrative Exam Narrative: Elderly young for looking age male lying in bed AAOx3 pleasant and very talkative. Intelligent Eyes PERRLA, lips dry and cracking, tongue and MM appear moist. NPO at this time HR RRR no ectopy or murmur No labored breathing, LSC No abdominal pain, abd soft nontender Skin in tact Const General: cooperative, no acute distress, ill appearing chronically and No well hydrated Nutritional Appearance: obese Orientation: alert, awake and oriented x3 HENMT Head: normal to inspection and atraumatic Ears: hearing grossly normal bilaterally Mouth: mucous membranes dry and moist mucous membranes abnormal Eyes Pupils: PERRL EOM: EOM intact bilaterally Neck Carotids: normal carotid upstroke Lymphatic: no lymphadenopathy noted Chest Chest: normal inspection of the chest Resp Effort & Inspection: normal respiratory effort and able to speak in complete sen tences Auscultation: clear to auscultation bilaterally Cardio Rate: regular rate Rhythm: regular rhythm Heart Sounds: S1 normal and S2 normal GI Inspection: normal to inspection Palpation: soft and no hepatosplenomegaly Auscultation: normal bowel sounds General: deferred Back/Spine/Pelvis Back: no CVA tenderness Thoracic/Lumbar Spine: thoracic and lumbar spine normal to inspection Skin General skin exam: no rashes or lesions noted Neuro General: patient alert, patient awake, patient oriented x3 and moves all extremities Cognition: normal cognition Speech: speech normal Extrem General: abnormal to inspection and edema (non pitting) Laterality: bilateral Psych Appearance: grossly normal Mental Status: mental status grossly normal Speech and Movement: speech and movement normal Mood: congruent mood Affect: normal affect Attitude: cooperative Thought Content: normal Objective Objective Clinical Data: Abnormal lab results 07/02/20 07/03/20 07/03/20 Range/Units 06:30 14:15 21:05 RBC (4.36-5.78) 10^6/uL Hgb 6.9 L* 8.1 L (13.5-17.5) g/dL Hct 20.4 L* 23.2 L (40.0-50.0) % RDW (11.8-14.1) % Chloride (98-107) mmol/L Carbon Dioxide (21.0-32.0) mmol/L BUN (7-18) mg/dL Creatinine (0.70-1.30) mg/dL Calcium (8.5-10.1) mg/dL Magnesium (1.8-2.4) mg/dL HDL Cholesterol (40-60) mg/dL Crossmatch See Detail 07/04/20 07/04/20 Range/Units 06:20 06:20 RBC 2.41 L (4.36-5.78) 10^6/uL Hgb 7.8 L (13.5-17.5) g/dL Hct 22.2 L (40.0-50.0) % RDW 14.8 H (11.8-14.1) % Chloride 113 H (98-107) mmol/L Carbon Dioxide 19.5 L (21.0-32.0) mmol/L BUN 37 H D (7-18) mg/dL Creatinine 1.36 H (0.70-1.30) mg/dL Calcium 7.9 L (8.5-10.1) mg/dL Magnesium 1.7 L (1.8-2.4) mg/dL HDL Cholesterol 26 L (40-60) mg/dL Crossmatch Vital Signs Temperature 35.7 C L 07/04/20 07:21 Temperature Source Temporal Artery Scan 07/04/20 07:21 Pulse 82 07/04/20 07:21 Pulse Rhythm Regular 07/04/20 08:40 Pulse 92 H 07/02/20 07:50 Respiratory Rate 18 07/04/20 07:21 Respiratory Effort Non-Labored 07/04/20 08:40 Respiratory Depth Normal 07/04/20 08:40 Respiratory Pattern Normal 07/04/20 08:40 Blood Pressure 150/72 H 07/04/20 07:21 Blood Pressure Mean 71 07/02/20 07:45 Blood Pressure Position Supine 07/02/20 06:04 Pulse Oximetry 99 07/04/20 07:21 Oxygen Delivery Method Room Air 07/04/20 07:21 Oxygen Flow Rate 0 07/04/20 07:21 Pain Level 2 07/04/20 07:21 Comment 07/03/20 16:00 Intake & Output 07/03/20 07/03/20 07/04/20 11:59 23:59 11:59 Intake Total 2393.334 / 3354.251 960.917 / 3354.251 841.667 / 841.667 Output Total 950 / 2000 1050 / 2000 500 / 500 Balance 1443.334 / 1354.251 -89.083 / 1354.251 341.667 / 341.667 Weight 90 kg 90.9 kg Intake: IV 1673.334 / 1796.251 122.917 / 1796.251 841.667 / 841.667 Oral 720 / 1200 480 / 1200 Blood Product 311 / 311 Rbc Leuko Reduced Unit 311 / 311 [id number] Other 47 / 47 Rbc Leuko Reduced Unit 47 / 47 [id number] Output: Urine 950 / 2000 1050 / 2000 500 / 500 Other: Urine Color Yellow Straw Yellow Urine Appearance Clear Clear Clear Urine Odor Normal Normal None Comment Urine mixed with stool in the commode. RN unable to determine urine amount. Stool Occult Blood Positive Stool Size Copious Stool Characteristics Liquid Black Voiding Methods Urinal Urinal Urinal Laboratory Results WBC 9.19 10^3/uL (4.4-10.8) 07/04/20 06:20 RBC 2.41 10^6/uL (4.36-5.78) L 07/04/20 06:20 Hgb 7.8 g/dL (13.5-17.5) L 07/04/20 06:20 Hct 22.2 % (40.0-50.0) L 07/04/20 06:20 MCV 92.1 fL (80-95) 07/04/20 06:20 MCH 32.4 pg (27.0-33.0) 07/04/20 06:20 MCHC 35.1 % (32.0-36.0) 07/04/20 06:20 RDW 14.8 % (11.8-14.1) H 07/04/20 06:20 Plt Count 218 10^3/uL (130-400) 07/04/20 06:20 MPV 10.3 fL (8.0-11.0) 07/04/20 06:20 Immature Gran % 1.1 07/04/20 06:20 Neutrophils % 59.6 07/04/20 06:20 Lymphocytes % 28.2 07/04/20 06:20 Monocytes % 5.3 07/04/20 06:20 Eosinophils % 5.1 07/04/20 06:20 Basophils % 0.7 07/04/20 06:20 Nucleated RBC % 1 % 07/04/20 06:20 Absolute Neutrophils 5.48 10^3/uL (1.2-6.7) 07/04/20 06:20 Absolute Lymphocytes 2.59 10^3/uL (1.2-3.4) 07/04/20 06:20 Absolute Monocytes 0.49 10^3/uL (0.1-0.8) 07/04/20 06:20 Absolute Eosinophils 0.47 10^3/uL (0.0-0.7) 07/04/20 06:20 Absolute Basophils 0.06 10^3/uL (0.0-0.2) 07/04/20 06:20 VBG Lactate 1.7 mmol/L (0.6-1.4) H 07/03/20 07:55 Sodium 140 mmol/L (136-145) 07/04/20 06:20 Potassium 3.8 mmol/L (3.5-5.1) 07/04/20 06:20 Chloride 113 mmol/L (98-107) H 07/04/20 06:20 Carbon Dioxide 19.5 mmol/L (21.0-32.0) L 07/04/20 06:20 Anion Gap 7.5 mmol/L (3-11) 07/04/20 06:20 BUN 37 mg/dL (7-18) H D 07/04/20 06:20 Creatinine 1.36 mg/dL (0.70-1.30) H 07/04/20 06:20 Estimated GFR/1.73 m2 50.05 (mL/min/1.73m2) 07/04/20 06:20 Glucose 101 mg/dL (74-106) 07/04/20 06:20 Hemoglobin A1c 6.5 % (<5.7) H 07/03/20 07:55 Calcium 7.9 mg/dL (8.5-10.1) L 07/04/20 06:20 Magnesium 1.7 mg/dL (1.8-2.4) L 07/04/20 06:20 Total Bilirubin 0.5 mg/dL (0.2-1.0) 07/02/20 06:30 AST 15 U/L (15-37) 07/02/20 06:30 ALT 35 U/L (16-63) 07/02/20 06:30 Alkaline Phosphatase 70 U/L (46-116) 07/02/20 06:30 C-Reactive Protein 0.19 mg/dL (0.0-0.3) 07/02/20 13:15 Total Protein 5.9 g/dL (6.4-8.2) L 07/02/20 06:30 Albumin 3.0 g/dL (3.4-5.0) L 07/02/20 06:30 Triglycerides 103 mg/dL (<150) 07/04/20 06:20 Total Cholesterol 74 mg/dL (<200) 07/04/20 06:20 LDL Cholesterol, Calc 28 mg/dL (<100) 07/04/20 06:20 HDL Cholesterol 26 mg/dL (40-60) L 07/04/20 06:20 Procalcitonin 0.1 ng/mL 07/02/20 06:30 Urine Color Yellow (Yellow) 07/02/20 15:15 Urine Clarity Clear (Clear) 07/02/20 15:15 Urine pH 5.5 (5-8) 07/02/20 15:15 Ur Specific [place] 1.015 (1.005-1.025) 07/02/20 15:15 Urine Protein Negative mg/dL (Negative) 07/02/20 15:15 Urine Ketones Negative mg/dL (Negative) 07/02/20 15:15 Urine Blood Negative (Negative) 07/02/20 15:15 Urine Nitrite Negative (Negative) 07/02/20 15:15 Urine Bilirubin Negative (Negative) 07/02/20 15:15 Urine Urobilinogen 0.2 EU/dL (Up TO 0.2) 07/02/20 15:15 Ur Leukocyte Esterase Negative (Negative) 07/02/20 15:15 Urine Glucose Negative mg/dL (Negative) 07/02/20 15:15 COVID-19 PCR Negative (Negative) 07/02/20 07:35 Nasopharyn COVID-19 PCR Not Applicable 07/02/20 07:35 Ref Test Perform Site [facility] lab 07/02/20 07:35 Patient ABO/Rh A Positive 07/02/20 06:30 Antibody Screen Negative 07/02/20 06:30 Crossmatch See Detail 07/02/20 06:30
--- NOTE | 2020-07-04 10:58 | PGE_ITS ---
Date of Service Date of service: 07/04/20 Time of Service: 10:58 Assessment and Plan Assessment and plan (1) GI bleeding: Status: Chronic Assessment and plan: Mr. Ceballos recieved 1 unit of blood last night. hgb was 8.1 last night and 7.8 this am. he has not had any more Bm's since yesterday after his enema. Discussed again with him watch and wait vs EGD. Patient would like to avoid procedure if possible. Will check one more hgb/Hct at 1 pm. If stable then will continue to trat with BID PPI and restart his diet. Plan discussed with Madonna Chisholm NP Qualifiers: GI bleed type/associated pathology: melena Qualified Code(s): K92.1 - Melena Subjective Subjective Interval history since last seen: mr. Ceballos is doing well this morning. he has not had any BM's since yesterday after his enema. He doesn't feel dizzy. He has not had any pain. he is passing flatus. Exam GI Inspection: normal to inspection Palpation: soft, no hepatosplenomegaly and nontender Auscultation: normal bowel sounds Objective Objective Clinical Data: Abnormal lab results 07/02/20 07/03/20 07/03/20 Range/Units 06:30 14:15 21:05 RBC (4.36-5.78) 10^6/uL Hgb 6.9 L* 8.1 L (13.5-17.5) g/dL Hct 20.4 L* 23.2 L (40.0-50.0) % RDW (11.8-14.1) % Chloride (98-107) mmol/L Carbon Dioxide (21.0-32.0) mmol/L BUN (7-18) mg/dL Creatinine (0.70-1.30) mg/dL Calcium (8.5-10.1) mg/dL Magnesium (1.8-2.4) mg/dL HDL Cholesterol (40-60) mg/dL Crossmatch See Detail 07/04/20 07/04/20 Range/Units 06:20 06:20 RBC 2.41 L (4.36-5.78) 10^6/uL Hgb 7.8 L (13.5-17.5) g/dL Hct 22.2 L (40.0-50.0) % RDW 14.8 H (11.8-14.1) % Chloride 113 H (98-107) mmol/L Carbon Dioxide 19.5 L (21.0-32.0) mmol/L BUN 37 H D (7-18) mg/dL Creatinine 1.36 H (0.70-1.30) mg/dL Calcium 7.9 L (8.5-10.1) mg/dL Magnesium 1.7 L (1.8-2.4) mg/dL HDL Cholesterol 26 L (40-60) mg/dL Crossmatch Vital Signs Temperature 96.3 F L 07/04/20 07:21 Temperature Source Temporal Artery Scan 07/04/20 07:21 Pulse 82 07/04/20 07:21 Pulse Rhythm Regular 07/04/20 08:40 Pulse 92 H 07/02/20 07:50 Respiratory Rate 18 07/04/20 07:21 Respiratory Effort Non-Labored 07/04/20 08:40 Respiratory Depth Normal 07/04/20 08:40 Respiratory Pattern Normal 07/04/20 08:40 Blood Pressure 150/72 H 07/04/20 07:21 Blood Pressure Mean 71 07/02/20 07:45 Blood Pressure Position Supine 07/02/20 06:04 Pulse Oximetry 99 07/04/20 07:21 Oxygen Delivery Method Room Air 07/04/20 07:21 Oxygen Flow Rate 0 07/04/20 07:21 Pain Level 2 07/04/20 07:21 Comment 07/03/20 16:00 Intake & Output 07/03/20 07/03/20 07/04/20 11:59 23:59 11:59 Intake Total 2393.334 / 3354.251 960.917 / 3354.251 841.667 / 841.667 Output Total 950 / 2000 1050 / 2000 500 / 500 Balance 1443.334 / 1354.251 -89.083 / 1354.251 341.667 / 341.667 Weight 198 lb 6.656 oz 200 lb 6.403 oz Intake: IV 1673.334 / 1796.251 122.917 / 1796.251 841.667 / 841.667 Oral 720 / 1200 480 / 1200 Blood Product 311 / 311 Rbc Leuko Reduced Unit 311 / 311 [id number] Other 47 / 47 Rbc Leuko Reduced Unit 47 / 47 [id number] Output: Urine 950 / 2000 1050 / 2000 500 / 500 Other: Urine Color Yellow Straw Yellow Urine Appearance Clear Clear Clear Urine Odor Normal Normal None Comment Urine mixed with stool in the commode. RN unable to determine urine amount. Stool Occult Blood Positive Stool Size Copious Stool Characteristics Liquid Black Voiding Methods Urinal Urinal Urinal Laboratory Results WBC 9.19 10^3/uL (4.4-10.8) 07/04/20 06:20 RBC 2.41 10^6/uL (4.36-5.78) L 07/04/20 06:20 Hgb 7.8 g/dL (13.5-17.5) L 07/04/20 06:20 Hct 22.2 % (40.0-50.0) L 07/04/20 06:20 MCV 92.1 fL (80-95) 07/04/20 06:20 MCH 32.4 pg (27.0-33.0) 07/04/20 06:20 MCHC 35.1 % (32.0-36.0) 07/04/20 06:20 RDW 14.8 % (11.8-14.1) H 07/04/20 06:20 Plt Count 218 10^3/uL (130-400) 07/04/20 06:20 MPV 10.3 fL (8.0-11.0) 07/04/20 06:20 Immature Gran % 1.1 07/04/20 06:20 Neutrophils % 59.6 07/04/20 06:20 Lymphocytes % 28.2 07/04/20 06:20 Monocytes % 5.3 07/04/20 06:20 Eosinophils % 5.1 07/04/20 06:20 Basophils % 0.7 07/04/20 06:20 Nucleated RBC % 1 % 07/04/20 06:20 Absolute Neutrophils 5.48 10^3/uL (1.2-6.7) 07/04/20 06:20 Absolute Lymphocytes 2.59 10^3/uL (1.2-3.4) 07/04/20 06:20 Absolute Monocytes 0.49 10^3/uL (0.1-0.8) 07/04/20 06:20 Absolute Eosinophils 0.47 10^3/uL (0.0-0.7) 07/04/20 06:20 Absolute Basophils 0.06 10^3/uL (0.0-0.2) 07/04/20 06:20 VBG Lactate 1.7 mmol/L (0.6-1.4) H 07/03/20 07:55 Sodium 140 mmol/L (136-145) 07/04/20 06:20 Potassium 3.8 mmol/L (3.5-5.1) 07/04/20 06:20 Chloride 113 mmol/L (98-107) H 07/04/20 06:20 Carbon Dioxide 19.5 mmol/L (21.0-32.0) L 07/04/20 06:20 Anion Gap 7.5 mmol/L (3-11) 07/04/20 06:20 BUN 37 mg/dL (7-18) H D 07/04/20 06:20 Creatinine 1.36 mg/dL (0.70-1.30) H 07/04/20 06:20 Estimated GFR/1.73 m2 50.05 (mL/min/1.73m2) 07/04/20 06:20 Glucose 101 mg/dL (74-106) 07/04/20 06:20 Hemoglobin A1c 6.5 % (<5.7) H 07/03/20 07:55 Calcium 7.9 mg/dL (8.5-10.1) L 07/04/20 06:20 Magnesium 1.7 mg/dL (1.8-2.4) L 07/04/20 06:20 Total Bilirubin 0.5 mg/dL (0.2-1.0) 07/02/20 06:30 AST 15 U/L (15-37) 07/02/20 06:30 ALT 35 U/L (16-63) 07/02/20 06:30 Alkaline Phosphatase 70 U/L (46-116) 07/02/20 06:30 C-Reactive Protein 0.19 mg/dL (0.0-0.3) 07/02/20 13:15 Total Protein 5.9 g/dL (6.4-8.2) L 07/02/20 06:30 Albumin 3.0 g/dL (3.4-5.0) L 07/02/20 06:30 Triglycerides 103 mg/dL (<150) 07/04/20 06:20 Total Cholesterol 74 mg/dL (<200) 07/04/20 06:20 LDL Cholesterol, Calc 28 mg/dL (<100) 07/04/20 06:20 HDL Cholesterol 26 mg/dL (40-60) L 07/04/20 06:20 Procalcitonin 0.1 ng/mL 07/02/20 06:30 Urine Color Yellow (Yellow) 07/02/20 15:15 Urine Clarity Clear (Clear) 07/02/20 15:15 Urine pH 5.5 (5-8) 07/02/20 15:15 Ur Specific [place] 1.015 (1.005-1.025) 07/02/20 15:15 Urine Protein Negative mg/dL (Negative) 07/02/20 15:15 Urine Ketones Negative mg/dL (Negative) 07/02/20 15:15 Urine Blood Negative (Negative) 07/02/20 15:15 Urine Nitrite Negative (Negative) 07/02/20 15:15 Urine Bilirubin Negative (Negative) 07/02/20 15:15 Urine Urobilinogen 0.2 EU/dL (Up TO 0.2) 07/02/20 15:15 Ur Leukocyte Esterase Negative (Negative) 07/02/20 15:15 Urine Glucose Negative mg/dL (Negative) 07/02/20 15:15 COVID-19 PCR Negative (Negative) 07/02/20 07:35 Nasopharyn COVID-19 PCR Not Applicable 07/02/20 07:35 Ref Test Perform Site [facility] lab 07/02/20 07:35 Patient ABO/Rh A Positive 07/02/20 06:30 Antibody Screen Negative 07/02/20 06:30 Crossmatch See Detail 07/02/20 06:30
[2020-07-04 11:41] VITALS: BP 104/58; PULSE 69; RESP 18; TEMP 36.5; O2SAT 99
[2020-07-04 14:02] LABS: HCT 23.7 % (40.0-50.0); HGB 7.9 g/dL (13.5-17.5)
[2020-07-04 15:35] VITALS: BP 113/64; PULSE 77; RESP 19; TEMP 36.2; O2SAT 100
--- NOTE | 2020-07-04 17:17 | NUR.NOTE ---
Nursing Note: 07/04/2020 1717 Patient is sitting up in bed eating a clear liquid tray at this time and reports he feels his appetite coming back. Patient has been NPO since 1600 on 07/03/2020. Authoring nurse notes that the patient has been sleeping most of the day, easily arousable but less energetic and talkative than previously noted on a prior admission within the past few weeks. Patient denies pain at this time. Nurse will continue to monitor and reassess as necessary.
[2020-07-04 19:10] VITALS: BP 110/57; PULSE 110; RESP 18; TEMP 36.5; O2SAT 95
[2020-07-04] MEDS: Lidocaine Patch Removal 1 EACH TD (20:02)
[2020-07-04] MEDS: Atorvastatin 20 MG TAB PO (20:04)
[2020-07-04 23:10] VITALS: BP 113/63; PULSE 71; RESP 19; TEMP 36.8; O2SAT 100
[2020-07-05] VITALS (12 sets, daily range): BP systolic 97–125; BP diastolic 58–68; PULSE 59–82; RESP 15–20; TEMP 36–36.9; O2SAT 98–100
[2020-07-05] MEDS: Normal Saline 1,000 ML 125 ML IV (03:40)
[2020-07-05 06:59] LABS: Abs Immature Grans 0.04 10^3/uL (0.0-0.06); MCH 32.2 pg (27.0-33.0); MCHC 34.5 % (32.0-36.0); MCV 93.3 fL (80-95); Nucleated RBC 1 %; RBC 2.08 10^6/uL (4.36-5.78); RDW 15.4 % (11.8-14.1); RDW-SD 50.1 fL; WBC 7.06 10^3/uL (4.4-10.8)
[2020-07-05 07:03] LABS: BUN 24 mg/dL (7-18); CREATININE 1.39 mg/dL (0.70-1.30); Calcium 7.6 mg/dL (8.5-10.1); Chloride 111 mmol/L (98-107); Glucose 97 mg/dL (74-106); Magnesium 1.8 mg/dL (1.8-2.4); Potassium 3.5 mmol/L (3.5-5.1); Sodium 139 mmol/L (136-145)
[2020-07-05 07:26] LABS: HCT 19.4 % (40.0-50.0); HGB 6.7 g/dL (13.5-17.5)
[2020-07-05 07:29] LABS: Platelet Count 221 10^3/uL (130-400)
[2020-07-05 07:35] LABS: Absolute Monocyte Count 0.35 10^3/uL (0.1-0.8); Bands % 1
[2020-07-05 07:36] LABS: Absolute Basophil Count 0.14 10^3/uL (0.0-0.2); Absolute Eosinophil Count 0.21 10^3/uL (0.0-0.7)
[2020-07-05 07:39] LABS: Absolute Neutrophil Count 4.17 10^3/uL (1.2-6.7)
[2020-07-05 07:40] LABS: Absolute Lymphocyte Count 2.19 10^3/uL (1.2-3.4); Basophilic Stippling Present; Diff Comment Manual Differential; Hypochromasia 2+; Procalcitonin < 0.1 ng/mL
[2020-07-05 07:41] LABS: Poikilocytes 2+
--- NOTE | 2020-07-05 08:30 | DI.NM_ITS ---
EXAM: NM LUNG SCAN VENT PERF AEROS CLINICAL HISTORY: dizzy, question syncope. TECHNIQUE: Injected Dose: Ventilation: 30 mCi Tc-99m DTPA via inhalation Perfusion: 4 mCi Tc-99m MAA via IV COMPARISON: CR XR CHEST 1V IN DI DEPT from 07/05/2020 FINDINGS: Chest X-Ray: Clear lungs. Perfusion: Normal. Ventilation:Normal. Homogeneous. IMPRESSION: 1. Low probability VQ examination. . . . Modified PIOPED II criteria Probability Criteria High Two or more segments of V/Q mismatch Low Normal Perfusion, Non segmental perfusion abnormalitie s, pleural effusion in at least 1/3 of pleural cavity with no other defect Radiograph/perfusion matched defect in mid to upper lung confined to segment, one to three small segmental perfusion defects (<25% of segment) Perfusion defect smaller than corresponding radiogra phic lesion. Intermediate All other findings DATA REPOSITORY:
--- NOTE | 2020-07-05 08:51 | UCONE_ITS ---
Date of service: 07/05/20 Time of Service: 07:29 Assessment and Plan Assessment and plan (1) Urinary retention: Status: Chronic Assessment and plan: I suspect this is a chronic finding for him and that he has a relatively low pressure system. He seems to have compensated relatively well and that he has no hydronephrosis, no recurrent urinary tract infections and relatively stable renal function. He is not interested in intermittent catheterization (which would be our recommendation to empty the bladder more completely). He has no real bothersome voiding symptoms. I believe continued monitoring is most appropriate for now. History of Present Illness History of Present Illness Chief Complaint: Incomplete bladder emptying Narrative: This is an 85-year-old gentleman who is admitted to the hospital with weakness and failure to thrive. He has heme positive stools and anemia. He has been on anticoagulants for a popliteal DVT. He is being considered for upper endoscopy to look for the source of a GI bleed. I have been asked to see the patient because of his inability to empty the bladder completely. The patient is unaware of any voiding difficulty. He rarely gets up at night to void. He tells me his stream is quite good. He is not having any urgency or incontinent episodes. He has no dysuria or gross hematuria. He feels like he empties his bladder quite well. He has no history of urinary tract infections, kidney stones or urologic surgery. He has never gone into complete retention as far as he knows. He does have a history of an elevated serum creatinine. Back in 2012, his creatinine was 1.6 ng/mL. His levels have been as high as 2.5 ng/mL but have improved with hydration. He has been found to have elevated postvoid residual urines on bladder scan. He has refused [place] catheter placement. 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 (Active 05/03/13) Elevated transaminase level (Resolved) Erectile dysfunction (Active) Hip pain (Inactive) Hyperkalemia (Resolved) Hypertension (Chronic) Hypokalemia (Active 05/03/13) Overweight (Active) Uremia (Inactive) Surgical History History of surgery (Active) onsillectomy and adenoidectomy in childhood. Incision and drainage of the neck in childhood. Social History Smoking/Tobacco Use Status: Never Alcohol Intake: current Alcohol Intake frequency: a few times a month Alcohol type: beer Drug use: Never Substance use type: does not use Do you feel safe at home: Yes Do you feel safe in your relationship?: Yes Additional Social history: Lives in [place] with his . 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 Exam Narrative Exam Narrative: He is a pleasant older gentleman seen at the bedside. His vital signs are documented elsewhere His abdomen is soft. His bladder is not distended. There is no CVA tenderness He is awake and alert. I reviewed his CTs scans of the abdomen and pelvis (dated 06/26/2020 and 07/03/2020). I do not see any sign of hydronephrosis. His bladder is relatively smooth-walled with no diverticuli seen. I do not find any positive urine cultures in the patient's EMR His serum creatinine has been elevated since 2012. His current level is stable for him. Results Last Vital Signs Temp 36.9 C 07/05/20 08:09 Pulse 60 07/05/20 08:09 Resp 18 07/05/20 08:09 BP 99/63 L 07/05/20 08:09 Pulse Ox 100 07/05/20 08:09 Labs Result diagrams: 07/05/20 06:20 07/05/20 06:20 Labs: Laboratory Results - last 24 hr 07/04/20 07/05/20 07/05/20 13:50 06:20 06:20 WBC 7.06 RBC 2.08 L Hgb 7.9 L 6.7 L* Hct 23.7 L 19.4 L* MCV 93.3 MCH 32.2 MCHC 34.5 RDW 15.4 H Plt Count 221 MPV 10.0 Immature Gran % 0.0 Neutrophils % 58.0 Band Neutrophils % 1 Lymphocytes % 31.0 Monocytes % 5.0 Eosinophils % 3.0 Basophils % 2.0 Nucleated RBC % 1 Absolute Neutrophils 4.17 Absolute Lymphocytes 2.19 Absolute Monocytes 0.35 Absolute Eosinophils 0.21 Absolute Basophils 0.14 RBC Morphology See below Hypochromasia 2+ Poikilocytosis 2+ Basophilic Stippling Present Sodium 139 Potassium 3.5 Chloride 111 H Carbon Dioxide 19.0 L Anion Gap 9.0 BUN 24 H D Creatinine 1.39 H Estimated GFR/1.73 m2 48.80 Glucose 97 Calcium 7.6 L Magnesium 1.8 Procalcitonin 07/05/20 06:20 WBC RBC Hgb Hct MCV MCH MCHC RDW Plt Count MPV Immature Gran % Neutrophils % Band Neutrophils % Lymphocytes % Monocytes % Eosinophils % Basophils % Nucleated RBC % Absolute Neutrophils Absolute Lymphocytes Absolute Monocytes Absolute Eosinophils Absolute Basophils RBC Morphology Hypochromasia Poikilocytosis Basophilic Stippling Sodium Potassium Chloride Carbon Dioxide Anion Gap BUN Creatinine Estimated GFR/1.73 m2 Glucose Calcium Magnesium Procalcitonin < 0.1
[2020-07-05] MEDS: Lidocaine 5% Patch 1 PATCH TP (09:24)
--- NOTE | 2020-07-05 09:49 | PDOC.CMPRO ---
- If Service Date Differs Date of service: 07/05/20 Time of Service: 09:49 Care Management Progress Note S/O: Bruce remains acute today he will have an EGD. He has been accepted at [facility] pending bed availability. A: Bruce is a 85 year old male with a recent admission, readmitted with Falls, failure to thrive, GI bleed P: Bruce remains acute at this time, he will be ready for discharge once he has had a complete medical work up. There is a bed offer was Bruce will transport via facility W/C van. CM will continue to assess for discharge needs and coordinate disposition.
--- NOTE | 2020-07-05 12:33 | PT.INTREAT ---
Date of service: 07/05/20 Time of Service: 09:50 PT Notes Visit Reasons: FAILURE TO THRIVE, GI BLEED Inpatient Physical Therapy Treatment Note [facility] Date: 07/05/2020 PRECAUTIONS: Fall SUBJECTIVE: Bruce reports that he is feeling flat today. OBJECTIVE: PAIN: Minimal c/o R hip pain with ther ex BED MOBILITY/TRANSFERS: Held bed mobility and transfers in a.m., per nursing, as patient's Hgb and Hct are low. Patient scheduled to receive blood transfusion later today. GAIT: Held gait training in a.m., per nursing, as patient's Hgb and Hct are low. Patient scheduled to receive blood transfusion later today. THEREX: Patient completed a core and LE strengthening program, in a supine position, as per flow sheet. Patient requires verbal cueing for proper exercise performance. Patient demonstrates difficulty with LE exercises R>L. ASSESSMENT: Patient tolerated session with complaint of R hip pain with ther ex. PLAN: Continue with global strengthening and gait training TREATMENT CODE/TIME: 10 minutes; 10140
--- NOTE | 2020-07-05 12:47 | OTIE_ITS ---
Occupational Therapy Notes Inpatient Occupational Therapy Evaluation Date: 07/05/20 Referring Doctor:Madonna Chisholm NP OT Orders: Non-URgent Precautions: Fall, Standard, Full, NPO PATIENT PROFILE/ADMITTING DIAGNOSIS: Pt is a 85 year old male with a significant past medical history of hypertension, CKD stage 3, hyperlipidemia, and prior CVA, DVT of the left popliteal vein, currently on Eloquis. He discharged from the hospital less than 48 hours before he returned to the ED. Pt was discharged home when he felt he was doing fine he notes that he felt weak and found himself on the floor multiple times btu denies any trauma to his head or hitting his head during the fall. He was brought into the ER by EMS. He had negative CT imaging of his head and neck upon his arrival. Past Medical History- History of surgery (Active) onsillectomy and adenoidectomy in childhood. Incision and drainage of the neck in childhood. Social History/Home Situation: Lives with in a private home with 3 steps to enter with bilateral rails. Independent with all ambulation activities using front wheeled walker for all indoor ambulation. He states that he has rarely gotten out of the house and has his help him with all his transportation needs. Equipment Owned/DME: Front wheeled walker. Current Functional Limitations: Impairments in ADL/IADL and leisure activities, decreased performance of standing ADLs, decreased functional activity tolerance, decreased dynamic balance in sitting and standing position, decreased functional mobility required for ADL/IADLs, weakness, discomfort and decreased strength throughout (B) UE, emotional and requires moderate vc throughout. Social/Home situation: Lives with in a private home with 3 steps to enter with bilateral rails. Independent with all ambulation activities using front wheeled walker for all indoor ambulation. He states that he has rarely gotten out of the house and has his help him with all his transportation needs. He reports that he has noticed a decline in his baseline level of function over the past couple weeks. He requires (A) with LE dressing at times which he was previously able to perform. He notes that he takes car eof his who is often forgetful at times. Equipment Owned/DME: Front wheeled walker SUBJECTIVE: Pt was sitting in bed when OT arrived. He was agreeable to OT session and reports that he has so much going on in his life. He gets emotional when speaking about his sister and her recent dx of what he called similar to mad cow disease and he notes that he does not feel that he is where he needs to be in terms of his (I) at this time and is worried that he is getting worse. OBJECTIVE: General Observation: NPO per nursing as pt was going in for surgery today, pleasant and emotional, able to answer all questions, IV (R) UE Mental Status: A&Ox3 Pain: c/o pain throughout body ROM: RUE AROM WFL L UE AROM WFL STRENGTH: RUE 4-/5 throughout globally LUE 4/5 throughout globally FUNCTIONAL MOBILITY/ADLS: Transfers Supine-sit (I) Sit-supine (I) BATHING Pt denies reporting that he is supposed to have surgery today. He would like to hold until he has a time frame. He was receptive to washing his face which was (I). He was bale to demonstrate AROM required for his bathing routines with fatigue noted when reaching for his (B) LE DRESSING Dressing UE NT Dressing LE Sitting in bed pt was able to don and doff his (B) socks with min vc and min (A) GROOMING Sitting in bed (I) with brushing hair but denies oral hygiene TOILETING NT EATING Able to perform (I) with no (A) for cutting his food, food to mouth or opening/closing containers. BALANCE: Static sitting Normal Dynamic Sitting Good SPECIAL TESTS: Daily Activity Limitations Standardized Measure [facility] -[facility] ?6 clicks? Daily Activity Inpatient Short Form: Raw score: 21 INFORMED CONSENT/EDUCATION: Pt instructed in purpose of OT Consult and plan of care. ASSESSMENT: Patient is a 85-year-old male referred to occupational therapy services with diagnosis of hypertension, CKD stage 3, hyperlipidemia, and prior CVA, DVT of the left popliteal vein, currently on Eloquis with multiple falls within a short time frame prior to admission. Patient presents with clinical signs and symptoms consistent with dx, as demonstrated by the following i mpairment level findings/functional limitations: Impairments in ADL/IADL and leisure activities, decreased performance of standing ADLs, decreased functional activity tolerance, decreased dynamic balance in sitting and standing position, decreased functional mobility required for ADL/IADLs, weakness, discomfort and decreased strength throughout (B) UE, emotional and requires moderate vc throughout. AMPAC score 21 Patient is assessed as a Moderate 18687 complexity based on the following: History: see above Examination: see functional limitations as noted above Presentation: evolving Decision Making: AMPAC score 21 GOALS Goals x1 week 1. Transfers with FWW (I) 2. Dressing seated position, (I) with shirt, mod (I) For LE dressing 3. Bathing standing at sink (I) UE/LE 4. Toileting on toilet (I) PLAN OF CARE/TREATMENT PLAN: 1x/day, 5 days/ week x 1week Initiate Occupational Therapy Services for bathing, dressing, grooming, toilet ing, eating, transfer training. DISCHARGE RECOMMENDATIONS with increased HH service vs. SNF TREATMENT TIME/MINUTES/CODES 39006, 17313, 08:26, 30 minutes [facility]
[2020-07-05] MEDS: Pantoprazole 40 MG VIAL IVP ×2 (12:58→20:01)
[2020-07-05] MEDS: Normal Saline Flush 10 ML SYR IVP ×2 (12:58→20:00)
--- NOTE | 2020-07-05 14:33 | PGE_ITS ---
Date of Service Date of service: 07/05/20 Time of Service: 14:33 Assessment and Plan Assessment and plan (1) GI bleeding: Status: Chronic Assessment and plan: On eliquis for DVT. Prior to admission patient was not on PPI. Received one unit yesterday PRBC. Post infusion 8.1 this am 7.8 large liquid black stool last night. Surgery to possibly preform EGD, patient would prefer to wait, will repeat H/H at 1300 and decide at that time. Qualifiers: GI bleed type/associated pathology: melena Qualified Code(s): K92.1 - Melena (2) Heme positive stool: Status: Acute Assessment and plan: As above (3) Urinary retention: Status: Chronic Assessment and plan: PVR with 800+, patient endorses he only voids BID at home. There was some constipation, he was given an enema with success and able to void [address] obtained revealing Most recent exam patient has developed marked bladder distension. Theprostate is prominent but clinical correlation is recommended to exclude neurogenic bladder. Bilateral renal cyst with mild dilatation of the collecting system on the right without hydroureter. This appears to be chronic in nature. Urology consulted. (4) Leukocytosis: Status: Acute Assessment and plan: BC-NGTD, urine culture pending No clear source of infection Day 3 ceftriaxone will d/c after dose. Will recheck procalcitonin in am (5) New onset type 2 diabetes mellitus: Status: Acute Assessment and plan: New diagnosis, fingersticks have been under 140 Will need glucometer on discharge from snif Check fingersticks BID at home/rehab facility Recommend starting metformin on discharge and carb controlled diet Diabetic education (6) Fall: Status: Acute Assessment and plan: PT/OT No injury Qualifiers: Encounter type: initial encounter Qualified Code(s): W19.XXXA - Unspecified fall, initial encounter (7) Failure to thrive: Status: Acute Assessment and plan: Failed at home This appears to be in setting of returning home after being discharged with DVT and on eliquis. He denies abdominal pain, does endorse lack of appetite, He would benefit from SNIF for rehab Qualifiers: Failure to thrive age range: in adult Qualified Code(s): R62.7 - Adult failure to thrive (8) Acute kidney injury superimposed on chronic kidney disease: Status: Acute Assessment and plan: From dehydration, improving with IV hydration (9) Dehydration: Status: Acute Assessment and plan: From lack of appetite not eating or drinking, Rehydrate with IVF (10) Weakness: Status: Acute Assessment and plan: As above. PT/OT (11) Hypertension: Status: Chronic Assessment and plan: BP improved, elevated today, will hold at this time on resuming antihyptensives until bleeding improves and hemoglobin stable. Resume when stable. Qualifiers: Hypertension type: essential hypertension Qualified Code(s): I10 - Essential (primary) hypertension (12) Trochanteric bursitis, right hip: Status: Chronic Assessment and plan: Seen by Dr. Young last admission, scheduled tylenol and lidoderm patches were successful on last admission for controlling pain, will continue at this time. (13) Deep venous thrombosis of left popliteal vein: Status: Acute Assessment and plan: Found on last admission. was started on eliquis, now 5 mg bid Qualifiers: Chronicity: acute Qualified Code(s): I82.432 - Acute embolism and th rombosis of left popliteal vein (14) Edema of both lower extremities: Status: Chronic Assessment and plan: Chronic but was found to have DVT last admission, as above. (15) H/O: CVA (cerebrovascular accident): Status: Acute Assessment and plan: In 2012 he had a CVA, no residual, (16) Discharge planning issues: Status: Acute Assessment and plan: Will likely need SNF placement for strength. Will have PT evaluate, he did fall at home. (17) DVT prophylaxis: Status: Acute Assessment and plan: on eliquis Above case discussed with Dr. Jensen who is in agreement. Subjective Subjective Patient reports: no bowel movement and afebrile; denies diarrhea, nausea, vomi ting, shortness of breath and fever Exam Const General: cooperative, no acute distress, ill appearing chronically and No well hydrated Nutritional Appearance: obese Orientation: alert, awake and oriented x3 HENMT Head: normal to inspection and atraumatic Ears: hearing grossly normal bilaterally Mouth: mucous membranes dry and moist mucous membranes abnormal Eyes Pupils: PERRL EOM: EOM intact bilaterally Neck Carotids: normal carotid upstroke Lymphatic: no lymphadenopathy noted Chest Chest: normal inspection of the chest Resp Effort & Inspection: normal respiratory effort and able to speak in complete sentences Auscultation: clear to auscultation bilaterally Cardio Rate: regular rate Rhythm: regular rhythm Heart Sounds: S1 normal and S2 normal GI Inspection: normal to inspection Palpation: soft and no hepatosplenomegaly Auscultation: normal bowel sounds General: deferred Back/Spine/Pelvis Back: no CVA tenderness Thoracic/Lumbar Spine: thoracic and lumbar spine normal to inspection Skin General skin exam: no rashes or lesions noted Neuro General: patient alert, patient awake, patient oriented x3 and moves all extremities Cognition: normal cognition Speech: speech normal Extrem General: abnormal to inspection and edema (non pitting) Laterality: bilateral Psych Appearance: grossly normal Mental Status: mental status grossly normal Speech and Movement: speech and movement normal Mood: congruent mood Affect: normal affect Attitude: cooperative Thought Content: normal Objective Objective Clinical Data: Abnormal lab results 07/02/20 07/05/20 07/05/20 Range/Units 06:30 06:20 06:20 RBC 2.08 L (4.36-5.78) 10^6/uL Hgb 6.7 L* (13.5-17.5) g/dL Hct 19.4 L* (40.0-50.0) % RDW 15.4 H (11.8-14.1) % Chloride 111 H (98-107) mmol/L Carbon Dioxide 19.0 L (21.0-32.0) mmol/L BUN 24 H D (7-18) mg/dL Creatinine 1.39 H (0.70-1.30) mg/dL Calcium 7.6 L (8.5-10.1) mg/dL Crossmatch See Detail 07/05/20 Range/Units 09:12 RBC (4.36-5.78) 10^6/uL Hgb (13.5-17.5) g/dL Hct (40.0-50.0) % RDW (11.8-14.1) % Chloride (98-107) mmol/L Carbon Dioxide (21.0-32.0) mmol/L BUN (7-18) mg/dL Creatinine (0.70-1.30) mg/dL Calcium (8.5-10.1) mg/dL Crossmatch See Detail Vital Signs Temperature 36.5 C 07/05/20 12:17 Temperature Source Tympanic 07/05/20 11:18 Pulse 59 L 07/05/20 12:17 Pulse Rhythm Regular 07/05/20 09:28 Pulse 92 H 07/02/20 07:50 Respiratory Rate 15 07/05/20 12:17 Respiratory Effort Non-Labored 07/05/20 09:28 Respiratory Depth Normal 07/05/20 09:28 Respiratory Pattern Normal 07/05/20 09:28 Blood Pressure 112/64 07/05/20 12:17 Blood Pressure Mean 71 07/02/20 07:45 Blood Pressure Position Supine 07/02/20 06:04 Pulse Oximetry 100 07/05/20 12:17 Oxygen Delivery Method Room Air 07/05/20 12:17 Oxygen Flow Rate 0 07/05/20 12:17 Pain Level 2 07/05/20 11:18 Comment 07/03/20 16:00 Intake & Output 07/04/20 07/05/20 07/05/20 23:59 11:59 23:59 Intake Total 958.333 / 2800.000 939.583 / 1239.583 300 / 1239.583 Output Total 750 / 1250 500 / 500 Balance 208.333 / 1550.000 439.583 / 739.583 300 / 739.583 Weight 91.1 kg Intake: IV 958.333 / 2800.000 939.583 / 939.583 Blood Product 300 / 300 Rbc Leuko Reduced Unit 300 / 300 [id number] Output: Urine 750 / 1250 500 / 500 Other: Urine Color Yellow Yellow Yellow Urine Appearance Clear Clear Urine Odor Normal Comment Patient refuses Montes De Oca insertion at this time. Stool Size Moderate Large Stool Characteristics Soft Liquid Black Voiding Methods Bedside Commode Bedside Commode Bedside Commode Laboratory Results WBC 7.06 10^3/uL (4.4-10.8) 07/05/20 06:20 RBC 2.08 10^6/uL (4.36-5.78) L 07/05/20 06:20 Hgb 6.7 g/dL (13.5-17.5) L* 07/05/20 06:20 Hct 19.4 % (40.0-50.0) L* 07/05/20 06:20 MCV 93.3 fL (80-95) 09/08/20 06:20 MCH 32.2 pg (27.0-33.0) 07/05/20 06:20 MCHC 34.5 % (32.0-36.0) 07/05/20 06:20 RDW 15.4 % (11.8-14.1) H 07/05/20 06:20 Plt Count 221 10^3/uL (130-400) 07/05/20 06:20 MPV 10.0 fL (8.0-11.0) 07/05/20 06:20 Immature Gran % 0.0 07/05/20 06:20 Neutrophils % 58.0 07/05/20 06:20 Band Neutrophils % 1 07/05/20 06:20 Lymphocytes % 31.0 07/05/20 06:20 Monocytes % 5.0 07/05/20 06:20 Eosinophils % 3.0 07/05/20 06:20 Basophils % 2.0 07/05/20 06:20 Nucleated RBC % 1 % 07/05/20 06:20 Absolute Neutrophils 4.17 10^3/uL (1.2-6.7) 07/05/20 06:20 Absolute Lymphocytes 2.19 10^3/uL (1.2-3.4) 07/05/20 06:20 Absolute Monocytes 0.35 10^3/uL (0.1-0.8) 07/05/20 06:20 Absolute Eosinophils 0.21 10^3/uL (0.0-0.7) 07/05/20 06:20 Absolute Basophils 0.14 10^3/uL (0.0-0.2) 07/05/20 06:20 RBC Morphology See below 07/05/20 06:20 Hypochromasia 2+ 07/05/20 06:20 Poikilocytosis 2+ 07/05/20 06:20 Basophilic Stippling Present 07/05/20 06:20 VBG Lactate 1.7 mmol/L (0.6-1.4) H 07/03/20 07:55 Sodium 139 mmol/L (136-145) 07/05/20 06:20 Potassium 3.5 mmol/L (3.5-5.1) 07/05/20 06:20 Chloride 111 mmol/L (98-107) H 07/05/20 06:20 Carbon Dioxide 19.0 mmol/L (21.0-32.0) L 07/05/20 06:20 Anion Gap 9.0 mmol/L (3-11) 07/05/20 06:20 BUN 24 mg/dL (7-18) H D 07/05/20 06:20 Creatinine 1.39 mg/dL (0.70-1.30) H 07/05/20 06:20 Estimated GFR/1.73 m2 48.80 (mL/min/1.73m2) 07/05/20 06:20 Glucose 97 mg/dL (74-106) 07/05/20 06:20 Hemoglobin A1c 6.5 % (<5.7) H 07/03/20 07:55 Calcium 7.6 mg/dL (8.5-10.1) L 07/05/20 06:20 Magnesium 1.8 mg/dL (1.8-2.4) 07/05/20 06:20 Total Bilirubin 0.5 mg/dL (0.2-1.0) 07/02/20 06:30 AST 15 U/L (15-37) 07/02/20 06:30 ALT 35 U/L (16-63) 07/02/20 06:30 Alkaline Phosphatase 70 U/L (46-116) 07/02/20 06:30 C-Reactive Protein 0.19 mg/dL (0.0-0.3) 07/02/20 13:15 Total Protein 5.9 g/dL (6.4-8.2) L 07/02/20 06:30 Albumin 3.0 g/dL (3.4-5.0) L 07/02/20 06:30 Triglycerides 103 mg/dL (<150) 07/04/20 06:20 Total Cholesterol 74 mg/dL (<200) 07/04/20 06:20 LDL Cholesterol, Calc 28 mg/dL (<100) 07/04/20 06:20 HDL Cholesterol 26 mg/dL (40-60) L 07/04/20 06:20 Procalcitonin < 0.1 ng/mL 07/05/20 06:20 Urine Color Yellow (Yellow) 07/02/20 15:15 Urine Clarity Clear (Clear) 07/02/20 15:15 Urine pH 5.5 (5-8) 07/02/20 15:15 Ur Specific [place] 1.015 (1.005-1.025) 07/02/20 15:15 Urine Protein Negative mg/dL (Negative) 07/02/20 15:15 Urine Ketones Negative mg/dL (Negative) 07/02/20 15:15 Urine Blood Negative (Negative) 07/02/20 15:15 Urine Nitrite Negative (Negative) 07/02/20 15:15 Urine Bilirubin Negative (Negative) 07/02/20 15:15 Urine Urobilinogen 0.2 EU/dL (Up TO 0.2) 07/02/20 15:15 Ur Leukocyte Esterase Negative (Negative) 07/02/20 15:15 Urine Glucose Negative mg/dL (Negative) 07/02/20 15:15 COVID-19 PCR Negative (Negative) 07/02/20 07:35 Nasopharyn COVID-19 PCR Not Applicable 07/02/20 07:35 Ref Test Perform Site [facility] lab 07/02/20 07:35 Patient ABO/Rh Cancelled 07/05/20 09:12 Antibody Screen Negative 07/02/20 06:30 Crossmatch See Detail 07/05/20 09:12
--- NOTE | 2020-07-05 14:45 | DI.RAD_ITS ---
EXAM: XR CHEST 1V IN DI DEPT CLINICAL HISTORY: failure to thrive TECHNIQUE: 2D digital imaging was performed. COMPARISON: CR,XR XR PORTABLE CHEST AP from 07/02/2020 FINDINGS: LUNGS: Clear. No pleural abnormality seen. HEART: Normal. MEDIASTINUM: Aorta mildly tortuous. OTHER FINDINGS: None. IMPRESSION: No acute pulmonary findings. DATA REPOSITORY: RADIATION DOSE DELIVERED:
[2020-07-05] MEDS: Lactated Ringers 1,000 ML 80 ML IV (15:30)
--- NOTE | 2020-07-05 15:36 | PT.INNT ---
Date of service: 07/05/20 Time of Service: 15:36 PT Notes Visit Reasons: FAILURE TO THRIVE, GI BLEED 07/05/2020 Patient not available to participate in PT this afternoon due to testing and a procedure. Will attempt to resume PT services tomorrow afternoon.
--- NOTE | 2020-07-05 16:05 | W.PM.ENDDOP ---
Date of service: 07/05/20 Time of Service: 16:05 Endoscopy Report DATE OF PROCEDURE: 07/05/20 PRE-OP DIAGNOSIS: Melena POST-OP DIAGNOSIS: other (Erosive duodenitis with ulcer x2 and erosive gastritis, mild esophagitis) PROCEDURE: EGD SURGEON: Cynthia Blackwell ANESTHESIA: other (General/ ASA 3/ Clary Valdez, ALFREDO) ESTIMATED BLOOD LOSS: 0 PATHOLOGY: none sent COMPLICATIONS: None DISPOSITION: floor INDICATIONS: Mr. Ceballos is a pleasant 85 year old male who came to the ER after a fall at home. While here at the hospital he had a bloody BM and his Hgb dropped. He was recently started on Eliquis for a DVT. He was given 1 unit of blood on saturday. Hgb was stable on Saturday but the dropped again to 6.8 on Saturday. EGD was recommended on Saturday and Saturday but patient wanted to wait and see. On Saturday he was agreeable to have an EGD done. He was not taken off Eliquis due to his recent diagnoses of a DVT Risks, benefits and complications have been reviewed. Complications include but are not limited to bleeding, pain, perforation, sore throat, aspiration, and adverse reaction to the medications. Questions were entertained and answered to their satisfaction and they wished to proceed. No guarantees were given or implied. FINDINGS: Erosive Duodenitis with 2 large ulcers. One ulcer suspicious for malignancy. Erosive gastritis No active bleeding Mild reflux esophagitis PROCEDURE DESCRIPTION: After informed consent was obtained the patient was take to the procedure room and placed in a supine position. Monitors were applied and a time out was done. The patients name, date of , procedure type, allergies to medications and metal in their body was reviewed. A bite block was placed and the patient was sedated. Once sedated and comfortable the gastroscope was advanced through the oropharynx which was grossly normal into the esophagus. The proximal and mid-esophagus were normal. In the distal esophagus there was mild inflammation noted. The scope was advanced into the stomach and through the pylorus into the 3rd portion of the duodenum. The 3rd portion of the duodenum was noted to be normal. In the 2nd and 1st portion of the duodenum there was severe erosive inflammation. 2 polyps were identified, one in the second portion and one in the 1st portion. The ulcer in the 2nd portion was suspicious for malignancy. Due to the fact that the patient is on Eliquis and just had a GI bleed I did not feel comfortable biopsing the ulcers. The scope was retracted back into the stomach. There was erosive inflammation of the stomach. There were no ulcers. The scope was retro-flexed. The cardia and fundus were noted to be normal. There was no hiatal hernia noted. The scope was retracted back into the esophagus. The Z line was irregular. The GE junction was at 35 cm. There was mild inflammation of the GE junction consistent with reflux. The scope was removed and the patient was woken up and taken back to [facility] in stable condition. Follow up: I will see him in the office in 2 weeks for follow up. I will also schedule him for a repeat EGD in 4-6 weeks when it is safe to take him off Eliquis for 2 days
[2020-07-05] MEDS: Acetaminophen 500 MG TAB 1000 MG PO (16:22)
[2020-07-05] MEDS: Sucralfate 1 GM TAB PO ×2 (16:39→21:34)
--- NOTE | 2020-07-05 16:41 | PCNE_ITS ---
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 (05/03/13) Elevated transaminase level Erectile dysfunction Failure to thrive Goals of care, counseling/discussion Heme positive stool Hip pain Hyperkalemia Hypertension Hypokalemia (05/03/13) Overweight Palliative care patient Sedentary lifestyle Uremia Verbosity and circumstantial detail obscuring reason for contact Surgical History History of surgery onsillectomy and adenoidectomy in childhood. Incision and drainage of the neck in childhood. Family History (Updated 08/05/20 @ 08:24 by Denise Zacarias MD) Daughter No problems noted. 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 Pets and animals: Yes (wai tzu x 2) Pets and animals: dog(s) Current gender identity: male What is your relationship status?: How often do you talk on the phone with friends or family?: three or more times per week How often do you get together with friends or relatives?: once per week Panel score (0-1 are the most socially isolated patients): 2 What type of physical activity do you participate in: walking and sedentary lifestyle Duration: 15-30 minutes/day Frequency: daily Special miya needs: No Agree to transfusion: Yes Seatbelt use: always Working smoke detector in home: Yes Fire extinguisher in home: Yes Do you feel safe at home: Yes Do you feel safe in your relationship?: Yes Additional Social history: Lives in [place] with his . 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 with moderate dementia. SHe needs help with ADLs. Needs home visits as an outpatient as he cannot bring his to appointments. Results Last Vital Signs Temp 97.7 F 07/05/20 16:06 Pulse 77 07/05/20 16:06 Resp 18 07/05/20 16:06 BP 125/61 07/05/20 16:06 Pulse Ox 100 07/05/20 16:06 Labs Result diagrams: 07/06/20 10:35 07/05/20 06:20 Labs: Laboratory Results - last 24 hr 07/02/20 07/05/20 07/05/20 06:30 06:20 06:20 WBC 7.06 RBC 2.08 L Hgb 6.7 L* Hct 19.4 L* MCV 93.3 MCH 32.2 MCHC 34.5 RDW 15.4 H Plt Count 221 MPV 10.0 Immature Gran % 0.0 Neutrophils % 58.0 Band Neutrophils % 1 Lymphocytes % 31.0 Monocytes % 5.0 Eosinophils % 3.0 Basophils % 2.0 Nucleated RBC % 1 Absolute Neutrophils 4.17 Absolute Lymphocytes 2.19 Absolute Monocytes 0.35 Absolute Eosinophils 0.21 Absolute Basophils 0.14 RBC Morphology See below Hypochromasia 2+ Poikilocytosis 2+ Basophilic Stippling Present Sodium 139 Potassium 3.5 Chloride 111 H Carbon Dioxide 19.0 L Anion Gap 9.0 BUN 24 H D Creatinine 1.39 H Estimated GFR/1.73 m2 48.80 Glucose 97 Calcium 7.6 L Magnesium 1.8 Procalcitonin Patient ABO/Rh A Positive Antibody Screen Negative Crossmatch See Detail 07/05/20 07/05/20 06:20 09:12 WBC RBC Hgb Hct MCV MCH MCHC RDW Plt Count MPV Immature Gran % Neutrophils % Band Neutrophils % Lymphocytes % Monocytes % Eosinophils % Basophils % Nucleated RBC % Absolute Neutrophils Absolute Lymphocytes Absolute Monocytes Absolute Eosinophils Absolute Basophils RBC Morphology Hypochromasia Poikilocytosis Basophilic Stippling Sodium Potassium Chloride Carbon Dioxide Anion Gap BUN Creatinine Estimated GFR/1.73 m2 Glucose Calcium Magnesium Procalcitonin < 0.1 Patient ABO/Rh Cancelled Antibody Screen Crossmatch See Detail
[2020-07-05] MEDS: Apixaban 5 MG TAB PO (19:57)
[2020-07-05] MEDS: Atorvastatin 20 MG TAB PO (19:58)
[2020-07-05] MEDS: Lidocaine Patch Removal 1 EACH TD (20:03)
[2020-07-05 22:29] LABS: COVID-19 RT-PCR UVMMC Result Negative (Negative)
[2020-07-06] MEDS: Acetaminophen 500 MG TAB 1000 MG PO ×2 (00:23→08:51)
[2020-07-06 03:00] VITALS: BP 113/67; PULSE 77; RESP 17; TEMP 36.2; O2SAT 95
--- NOTE | 2020-07-06 07:42 | OT.INTREAT ---
Date of service: 07/06/20 Time of Service: 07:15 Occupational Therapy Notes Occupational Therapy Inpatient Treatment Note Date: 07/06/20 PRECAUTIONS: fall, standard, Full SUBJECTIVE: Pt was lying in bed when OT arrived. He notes that he did not sleep well throughout the night but once the noise calmed down he was able to get a couple hours of sleep. OBJECTIVE: PAIN:11/06 pain in his (R) hip FUNCTIONAL MOBILITY Rolling L/R: (I) Supine-sit: (S) Sit-stand: SBA, FWW Stand-sit: SBA, FWW Bed-Chair: SBA, FWW BATHING: Sitting in chair with max (A) set up/clean up Upper Body: (I) with face, (B) UE, abdomen, and underarms Lower Body: (I) to (B) knees DRESSING: Sitting in chair with min vc Upper Extremity: denies changing his hospital gown Lower Extremity: min vc for bringing (L) foot on stool where he was able to (I) don and doff his socks, (R) foot he was unable to due to pain and required max (A). GROOMING: sitting in chair (I) with brushing hair TOILETING: Device: commode Assist: (I) ASSESSMENT/PLAN: Pt was an active participant in todays session. He was agreeable to performing his ADLs in the sitting position as well education and training in performance of ADLs with increased (I). He functionally was able to perform his bathing with min vc and required (A) for his socks. OT does feel that pt would benefit from use of adaptive equipment and will discuss this with pt at next session. TREATMENT CODES/TIME: [id number], 30 minutes (07:15) Myra Rivas OTR/[facility]
[2020-07-06 07:46] VITALS: BP 125/75; PULSE 68; RESP 20; TEMP 35.4; O2SAT 100
[2020-07-06 08:20] VITALS: TEMP 36.8
[2020-07-06] MEDS: Lidocaine 5% Patch 1 PATCH TP (08:49)
[2020-07-06] MEDS: Cholecalciferol (Vitamin D3) 1,000 UNIT TAB 2000 UNITS PO (08:51)
[2020-07-06] MEDS: Aspirin E.C. 81 MG TABEC PO (08:51)
[2020-07-06] MEDS: Sucralfate 1 GM TAB PO ×2 (08:51→11:28)
[2020-07-06] MEDS: Folic Acid 1 MG TAB PO (08:51)
[2020-07-06] MEDS: Pantoprazole 40 MG VIAL IVP (08:51)
[2020-07-06] MEDS: Cyanocobalamin 500 MCG TAB 1000 MCG PO (08:51)
[2020-07-06] MEDS: Tamsulosin 0.4 MG CAPCR PO (08:52)
[2020-07-06] MEDS: Normal Saline Flush 10 ML SYR IVP (08:52)
--- NOTE | 2020-07-06 10:08 | PT.INTREAT ---
Date of service: 07/06/20 Time of Service: 10:09 PT Notes Visit Reasons: FAILURE TO THRIVE, GI BLEED Inpatient Physical Therapy Treatment Note [facility] Date: 07/06/2020 PRECAUTIONS: Fall SUBJECTIVE: Bruce reports that he is feeling much better today. He was able to get some sleep last night. He is pleasant and agreeable to participating in PT. OBJECTIVE: PAIN: Patient c/o R hip pain, increasing with gait training and activity from reported 1/10 pain to 2-3/10. BED MOBILITY/TRANSFERS Supine-sit: I Sit-supine: I Sit-stand: S Stand-sit: S GAIT Assistive Device: FWW Weight bearing: Full Assist: SBA Distance: 80' Deviation: Increased R hip pain BALANCE: Patient performed standing with dynamic B UE movements with SBA x3 minutes THEREX: Patient completed a LE strengthening program, in a supine position, as per flow sheet. Patient requires verbal cueing for proper exercise performance. ASSESSMENT: Patient tolerated session with complaint of increased R hip pain with activity. He was able to tolerate a progression in gait distance with FWW support and SBA. He would benefit from continued global strengthening and gait training to return to baseline level of function at an independent level. PLAN: Continue with global strengthening and gait training at SNF level rehab TREATMENT CODE/TIME: Session 1: 25 minutes; [id number], [id number] Session 2: 10 minutes
[2020-07-06 10:46] LABS: HGB 8.4 g/dL (13.5-17.5)
--- NOTE | 2020-07-06 11:06 | DSE_ITS ---
Date of service: 07/06/20 Time of Service: 11:07 DS: Diagnosis Discharge Diagnosis (1) GI bleeding: Status: Chronic (2) Heme positive stool: Status: Acute (3) Urinary retention: Status: Chronic (4) Leukocytosis: Status: Acute (5) New onset type 2 diabetes mellitus: Status: Acute (6) Fall: Status: Acute (7) Failure to thrive: Status: Acute (8) Acute kidney injury superimposed on chronic kidney disease: Status: Acute (9) Dehydration: Status: Acute (10) Weakness: Status: Acute (11) Hypertension: Status: Chronic (12) Trochanteric bursitis, right hip: Status: Chronic (13) Deep venous thrombosis of left popliteal vein: Status: Acute (14) Edema of both lower extremities: Status: Chronic (15) H/O: CVA (cerebrovascular accident): Status: Acute Discharge Plan Disposition Patient Disposition: SNF (LEVEL 1) [facility] Condition: Improving Discharge Details Chief Complaint: GenMedical Reason For Visit: FAILURE TO THRIVE, GI BLEED Admit Date/Time: 07/03/20 09:40 Admit Provider: Stoney Magana Attending Provider: Stoney Magana Primary Care Provider: Gabriel Brooks ED Provider: Travis Andersen Hospital Course Hospital Course: This is a 85 y.o male recently admitted to hospitalist service and discharged home on 06/30 for Popiteal DVT. He presented back to the hospital after falling due to weakness. On discharge he was on eliquis for DVT, he did have heme positive stool in the ED, denies abdominal pain, BM are dark not red, H/H stable. He was admitted to med/surg H&H trended which did drift down, requiring blood transfusion. His eliquis was placed on hold. He seemed to improve after receiving first 2 units but did drop again to 6.8. he was given one more unit and taken to the OR by general surgery for EGD. He was noted to have erosive duodenitis with ulcer x2 and erosive gastritis with no bleeding. He will continue pantoprazole 2 times daily, carafate added. due to being on eliquis, no biospy's were obtained. plan is to rescope after he has completed his treatment for DVT and can safely be off eliquis. he is eating and drinking well, not having any GI symptoms or diarrhea. there is no evidence of ongoing bleeding, has been hemodynamically stable and H&H have been increasing up to 8.4 today prior to discharge. He has had no shortness of breath or chest pain. no dizziness. he will require a rehabilitation stay prior to discharge home. he should have is cbc checked SaturdayJul 08 and saturdayjul 11 to monitor for rebleed or complications. reasonable to start iron supplement hospital course complicated by urinary retention. saw urology: from note suspect this is a chronic finding for him and that he has a relatively low pressure system. He seems to have compensated relatively well and that he has no hydronephrosis, no recurrent urinary tract infections and relatively stable renal function. He is not interested in intermittent catheterization (which would be our recommendation to empty the bladder more completely). He has no real bothersome voiding symptoms. routine monitoring for now. Continue tamsulosin discharge plan discussed with DR Jensen who is in agreement. Home Meds and New Rx's Prescriptions: New sucralfate 1 gram Tablet 1 g PO AC & HS Qty: 120 RF: 0 tamsulosin 0.4 mg Capsule 0.4 mg PO DAILY Qty: 30 RF: 0 pantoprazole 40 mg tablet,delayed release (DR/EC) 40 mg PO BID Qty: 60 RF: 0 Continued atorvastatin 20 mg Tablet 20 mg PO DAILY RF: 0 aspirin [Aspir-81] 81 mg Tablet,Delayed Release (Dr/Ec) 81 mg PO DAILY RF: 0 cholecalciferol (vitamin D3) [Vitamin D3] 50 mcg (2,000 unit) Capsule 2,000 unit PO DAILY RF: 0 amlodipine 5 mg Tablet 10 mg PO DAILY Qty: 30 RF: 0 acetaminophen [Mapap Extra Strength] 500 mg Tablet 1,000 mg PO Q8H Qty: 90 RF: 0 Eliquis 5 mg Tablet See Rx Instructions .ROUTE .COMPLEX Qty: 60 RF: 0 folic acid 1 mg Tablet 1 mg PO DAILY Qty: 30 RF: 0 cyanocobalamin (vitamin B-12) 1,000 mcg capsule 1,000 mcg PO DAILY Qty: 30 RF: 0 lidocaine [Lidoderm] 5 % Adhesive Patch,Medicated 1 patch topical Q24H Qty: 30 RF: 0 Therems-M 27-0.4 mg Tablet 1 tab PO DAILY Qty: 30 RF: 0 Discharge Instructions Instructions: Gastrointestinal Bleeding (DC) Stand Alone Forms: Nursing Discharge Form Referrals: Samir Anderson MD [ [facility] STAFF PHYSICIAN] - Cynthia Blackwell MD [ [facility] STAFF PHYSICIAN] - Gabriel Brooks MD [Primary Care Provider] - Activity:: Activity as Tolerated Equipment/Supplies:: No Equipment Needed Diet:: Carb Counting Discharge Orders Discharge Orders: Discharge Order (Routine); Ordered 07/06/20 Ordered By: Cecily Fiore Other Ambulatory Orders: Complete Blood Count w/Diff (Routine) Timeframe: 20200708 Location: None Selected Ordered By: Cecily Fiore Complete Blood Count w/Diff (Routine) Timeframe: 20200711 Location: None Selected Ordered By: Cecily Fiore Discharge Data Discharge Date/Time-TO BE ENTERED AT DEPARTURE: 07/06/20 12:15 DS: Summary Status at Discharge Functional status at discharge: uses cane/walker Overall status at discharge: patient is not back to baseline Mental Status: mental status grossly normal Speech and Movement: speech and movement normal Mood: congruent mood Affect: normal affect Exam Const General: cooperative, comfortable and no acute distress Nutritional Appearance: obese Orientation: alert, awake and oriented x3 HENMT Head: normal to inspection and atraumatic Mouth: moist mucous membranes Resp Effort & Inspection: normal respiratory effort and able to speak in complete sentences Auscultation: clear to auscultation bilaterally Cardio Rate: regular rate Rhythm: regular rhythm GI Inspection: normal to inspection Palpation: soft Auscultation: normal bowel sounds Back/Spine/Pelvis Back: no CVA tenderness Skin General skin exam: no rashes or lesions noted Neuro General: patient alert, patient awake, patient oriented x3 and moves all extremities Cognition: normal cognition Speech: speech normal Extrem General: abnormal to inspection and edema (non pitting) Laterality: bilateral Psych Appearance: grossly normal Mental Status: mental status grossly normal Speech and Movement: speech and movement normal Mood: congruent mood Affect: normal affect Attitude: cooperative Thought Content: normal DS: Data Vitals/I&O Vitals and I&O: Vital Signs Temperature 36.8 C 07/06/20 08:20 Temperature Source Skin 07/06/20 08:20 Pulse 68 07/06/20 07:46 Pulse Rhythm Regular 07/06/20 06:16 Pulse 92 H 07/02/20 07:50 Respiratory Rate 20 07/06/20 07:46 Respiratory Effort Non-Labored 07/06/20 06:16 Respiratory Depth Normal 07/06/20 06:16 Respiratory Pattern Normal 07/06/20 06:16 Blood Pressure 125/75 07/06/20 07:46 Blood Pressure Mean 71 07/02/20 07:45 Blood Pressure Position Supine 07/02/20 06:04 Pulse Oximetry 100 07/06/20 07:46 Oxygen Delivery Method Room Air 07/06/20 07:46 Oxygen Flow Rate 0 07/06/20 07:46 Pain Level 1 07/06/20 07:46 Comment 07/03/20 16:00 Intake & Output 07/05/20 07/05/20 07/06/20 11:59 23:59 11:59 Intake Total 1793.750 / 2409.083 615.333 / 2409.083 360 / 360 Output Total 500 / 1000 500 / 1000 Balance 1293.750 / 1409.083 115.333 / 1409.083 360 / 360 Weight 91.1 kg 91.8 kg Intake: IV 1793.750 / 2109.083 315.333 / 2109.083 Oral 360 / 360 Blood Product 300 / 300 Rbc Leuko Reduced Unit 300 / 300 [id number] Output: Urine 500 / 1000 500 / 1000 Other: Urine Color Yellow Yellow Urine Appearance Clear Clear Clear Urine Odor Normal Stool Size Small Stool Characteristics Soft Liquid Voiding Methods Bedside Commode Bedside Commode Data Completed and Pending Labs on day of discharge: Labs from last 24 hours 07/06/20 07/06/20 07/04/20 10:35 06:50 17:35 Hgb 8.4 L 8.0 L Hct 24.0 L D COVID-19 PCR Negative Nasopharyn COVID-19 PCR Not Applicable Ref Test Perform Site [facility] lab Crossmatch 07/02/20 06:30 Hgb Hct COVID-19 PCR Nasopharyn COVID-19 PCR Ref Test Perform Site Crossmatch See Detail Preliminary micro results at discharge 07/02/20 13:05 Blood Culture - Preliminary Blood NO GROWTH 72 HOURS 07/02/20 13:15 Blood Culture - Preliminary Blood NO GROWTH 72 HOURS [facility] Medical History Anemia (Inactive) Arthritis (Acute) 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 (Active 05/03/13) Elevated transaminase level (Resolved) Erectile dysfunction (Active) Hip pain (Inactive) Hyperkalemia (Resolved) Hypertension (Chronic) Hypokalemia (Active 05/03/13) Overweight (Active) Uremia (Inactive) Surgical History History of surgery (Active) onsillectomy and adenoidectomy in childhood. Incision and drainage of the neck in childhood. 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 Current gender identity: male What is your relationship status?: How often do you talk on the phone with friends or family?: three or more times per week How often do you get together with friends or relatives?: once per week Panel score (0-1 are the most socially isolated patients): 2 What type of physical activity do you participate in: sedentary lifestyle Special miya needs: No Agree to transfusion: Yes Seatbelt use: always Working smoke detector in home: Yes Fire extinguisher in home: Yes Do you feel safe at home: Yes Do you feel safe in your relationship?: Yes Additional Social history: Lives in [place] with his . 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 Needs home visits as an outpatient as he cannot bring his to appointments.
--- NOTE | 2020-07-06 11:17 | W.INDIABCONS ---
Date of service: 07/06/20 Time of Service: 11:17 Diabetes Inpatient Consult DESCRIPTION/ASSESSMENT: Bruce familiar to investment underwriter from previous admission. Tried to met with Bruce today but sleeping. Readmitted with dehydration, weakness, poor appetite and GI bleed. Recent weight loss of 26 lbs(in last 6 months) intentional. Current BMI indicates overweight status. Recent A1C: 6.5% (07/03/20) indicating good blood sugar control. No DM meds at home, but receiving sliding scale insulin in house for coverage. Estimated Needs: [id number] kcal, 70-80 g protein. Following Diabetic Diet, no po intake available, just advanced today. INTERVENTION: Will provide Dm education if needed prior to discharge. PLAN: will continue to monitor po intake, labs, meds and weight Time Spent in Nutritional Counseling and Treatment: 0 time spent face to face
[2020-07-06] MEDS: Apixaban 5 MG TAB PO (11:28)
[2020-07-06 11:32] VITALS: BP 111/62; PULSE 77; RESP 19; TEMP 36.4; O2SAT 98
--- NOTE | 2020-07-06 15:47 | CMDISCH_ITS ---
- If Service Date Differs Date of service: 07/06/20 Time of Service: 15:47 LACE Index Scoring Tool - Questions: Length of Stay (in days): 3 Acuity (Admit via E.D.?): Yes Comorbidities: Cerebrovascular Disease, Diabetes w/o Complication, Mild Liver/Renal Disease E.D. Visits: 4 - Answers: Total Score: 15 Risk of Readmission: High Risk Care Management Discharge Reason for Hospitalization: Falls, failure to thrive, GI bleed Discharge Plan: Bruce will transition to [facility] today for short term rehab prior to returning home. He will transport via w/c van, coordinated by CM. He will follow up with his PCP and discharge plan of care. He is agreeable to going to rehab. Patient/Family Education Needs: Review discharge instructions regarding activity levels and medications, discussion of self care needs including ask me three and goals of care. Services Needed at Discharge: [facility] Facility ([facility]), Transportation (w/c van)
--- NOTE | 2020-07-07 07:35 | OT.INDS ---
Date of service: 07/07/20 Time of Service: 07:35 Occupational Therapy Notes Occupational Therapy Inpatient Discharge Summary Date: 07/07/20 Dates of Service: 07/05/20-07/07/20 Referring Doctor:Madonna Chisholm NP OT Orders: Non-URgent Precautions: Fall, Standard, Full, NPO *This document serves as a summary of care, no skilled OT services were provided for this documentation* PATIENT PROFILE/ADMITTING DIAGNOSIS: Pt is a 85 year old male with a significant past medical history of hypertension, CKD stage 3, hyperlipidemia, and prior CVA, DVT of the left popliteal vein, currently on Eloquis. He discharged from the hospital less than 48 hours before he returned to the ED. Pt was discharged home when he felt he was doing fine he notes that he felt weak and found himself on the floor multiple times btu denies any trauma to his head or hitting his head during the fall. He was brought into the ER by EMS. He had negative CT imaging of his head and neck upon his arrival. Past Medical History- History of surgery (Active) onsillectomy and adenoidectomy in childhood. Incision and drainage of the neck in childhood. Social History/Home Situation: Lives with in a private home with 3 steps to enter with bilateral rails. Independent with all ambulation activities using front wheeled walker for all indoor ambulation. He states that he has rarely gotten out of the house and has his help him with all his transportation needs. Equipment Owned/DME: Front wheeled walker. Social/Home situation: Lives with in a private home with 3 steps to enter with bilateral rails. Independent with all ambulation activities using front wheeled walker for all indoor ambulation. He states that he has rarely gotten out of the house and has his help him with all his transportation needs. He reports that he has noticed a decline in his baseline level of function over the past couple weeks. He requires (A) with LE dressing at times which he was previously able to perform. He notes that he takes car eof his who is often forgetful at times. Equipment Owned/DME: Front wheeled walker SUBJECTIVE: NT OBJECTIVE: ROM: RUE AROM WFL L UE AROM WFL STRENGTH: RUE 4-/5 throughout globally LUE 4/5 throughout globally FUNCTIONAL MOBILITY/ADLS: Rolling L/R: (I) Supine-sit: (S) Sit-stand: SBA, FWW Stand-sit: SBA, FWW Bed-Chair: SBA, FWW BATHING: Sitting in chair with max (A) set up/clean up Upper Body: (I) with face, (B) UE, abdomen, and underarms Lower Body: (I) to (B) knees DRESSING: Sitting in chair with min vc Upper Extremity: denies changing his hospital gown Lower Extremity: min vc for bringing (L) foot on stool where he was able to (I) don and doff his socks, (R) foot he was unable to due to pain and required max (A). GROOMING: sitting in chair (I) with brushing hair TOILETING: Device: commode Assist: (I) BALANCE: Static sitting Normal Dynamic Sitting Good ASSESSMENT: Patient is a 85-year-old male referred to occupational therapy services with diagnosis of hypertension, CKD stage 3, hyperlipidemia, and prior CVA, DVT of the left popliteal vein, currently on Eloquis with multiple falls within a short time frame prior to admission. Pt was seen for 2 skilled OT session including his initial evaluation. He was more receptive to performing his ADLs the second session and was receptive to functional (I) in his ADL/IADL. He was limited due to functional activity tolerance, fatigue and decreased (B) UE strength. GOALS 1. Transfers with FWW (I)- not met 2. Dressing seated position, (I) with shirt, mod (I) For LE dressing- not met 3. Bathing standing at sink (I) UE/LE- not met 4. Toileting on toilet (I)- not met PLAN OF CARE/TREATMENT PLAN: Pt was discharged from [facility] to H&R on 07/06/20 DISCHARGE RECOMMENDATIONS with increased HH service vs. SNF TREATMENT TIME/MINUTES/CODES N/A Myra Rivas OTR/[facility]
--- NOTE | 2020-07-07 08:47 | PT.INDS ---
Date of service: 07/07/20 PT Notes Visit Reasons: FAILURE TO THRIVE, GI BLEED Inpatient Physical Therapy Discharge Summary Date: 07/07/2020 Dates of Service: 07/02/2020 through 07/06/2020 This is a clinical summary of care provided on the duration of dates listed above. No charge was made in the completion of this documentation. Referring Doctor: Eleuterio Peacock PT Orders: PT CONSULT: unpecified evaluation order Precautions: Standard, fall Patient Profile/Admitting Diagnosis: 85-year-old male with a past medical history of hypertension, CKD stage 3, hyperlipidemia, and prior CVA, DVT of the left popliteal vein, currently on Eliquis. He was recently discharged from the hospital slightly greater than 24 hours ago. At home he states he initially was doing well, and then last evening he got up to go to the bathroom felt weak and fell. He hit his head at that time. He had no other complaints aside for the fall, was brought into the ER by EMS. He had negative CT imaging of his head neck. After evaluation the patient felt well, was able to get up and ambulate, and was discharged home. Unfortunately after getting home the patient began to feel more weak again. Patient fell again at home, but did not hit his head. Upon further evaluation in the ER, he appeared to have abnormal stools allowing for suspicion of GI bleed. His condition at home has overall been failing, per EMR review, with lack of appetite and continued weakness. He continues to struggle with chronic right lateral hip pain, limiting weightbearing tolerance. 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 Incision and drainage of the neck in childhood. Social History/Home Situation: Lives with in a private home with 3 steps to enter with bilateral rails. Independent with all ambulation activities using front wheeled walker for all indoor ambulation. He states that he has rarely gotten out of the house and has his help him with all his transportation needs. Equipment Owned/DME: Front wheeled walker. They did today Current Functional Limitations: Pain limiting ability to stand up, pain limiting ability tolerate sitting beyond 2 minutes. Requires assist with bed to supine Subjective: NT. See most recent [facility] notes. Objective: General Observation: NT. See most recent [facility] notes. Mental Status: NT. See most recent [facility] notes. Pain: NT. See most recent [facility] notes. ROM: Right Upper Extremity: Grossly 145 degrees of shoulder elevation and planes of flexion and abduction, elbow, wrist and digits are all WNL Left Upper Extremity: Comparable to right UE Right Lower Extremity: Unable to assess well, due to patient's pain. He was restricted to 90 degrees of hip flexion, and guarded with attempt of any other movements. Left Lower Extremity: Grossly WFL Strength: Right Upper Extremity: Grossly 4/5 throughout Left Upper Extremity: Grossly 4/5 throughout Right Lower Extremity: Pain at upon any muscle resistance, so no formal could be completed. Patient very guarded due to right hip pain Left Lower Extremity: Grossly 5/5 throughout Sensation: WNL Bed Mobility/Transfers: Supine to sit independent Sit to supine independent Sit to stand supervision Stand to sit supervision Bed to chair supervision Chair to bed supervision Gait: 80 feet with front wheeled walker with full weightbearing requiring standby assist with complaints of increased right hip pain. Balance: Static Sitting: Normal Dynamic Sitting: Normal Static Standing: Fair Dynamic Standing: Fair Assessment: Bruce demonstrates meaningful functional gains during this episode of care but remains in need of continued skilled services for existing functional deficits. He is a 85 year old male referred to physical therapy services with the diagnosis of weakness associated with potential GI bleed, and chronic right bursitis, with recent development of progressive weakness and lack of appetite. Goals: Goals X1 week 1. Supine-Sit independent MET 2. Sit-Supine independent MET 3. Sit-Stand independent NOT MET 4. Stand-Sit independent NOT MET 5. Bed-Chair independent with RW NOT MET 6. Chair-Bed independent with RW NOT MET 7. Gait household distance of 50 feet, with RW NOT MET 8. Stairs 3 steps, supervision with RW NOT MET 9. Independent with home exercise program NOT MET 10. Balance but with standing activities, dynamic and static NOT MET DISCHARGE RECOMMENDATIONS: At this time, patient responds favorably to inpatient PT, home with home health PT will be appropriate. If he continues to fail and have no progress, rehab stay will be required. TREATMENT CODE/TIME: NC Thank you for the opportunity to participate in the care of this patient. Francesca Solorio PT, DPT, CLT [facility] [place], [place]
== END 2020-07-06 12:15 | disposition skilled nursing facility (03) | DRG 378 ==
LOC: ER 07:25 → MS 08:10
PROVIDERS: Family Medicine; Nurse Practitioner Acute Care; Nurse Practitioner Family; Surgery; Admitting Provider Internal Medicine; Emergency Provider Student in an Organized Health Care Education/Training Program; PCP Internal Medicine; Visit Provider Internal Medicine
PROC: 0DJ68ZZ Inspection of Stomach, Via Natural or Artificial Opening Endoscopic (ICD-10-PCS; CPT 43235; principal; 2020-07-05 13:15)
DX: K26.4 Chronic or unspecified duodenal ulcer with hemorrhage (principal); I82.432 Acute embolism and thrombosis of left popliteal vein; N17.9 Acute kidney failure, unspecified; K29.61 Other gastritis with bleeding; K29.81 Duodenitis with bleeding; R62.7 Adult failure to thrive; K92.1 Melena; I12.9 Hypertensive chronic kidney disease with stage 1 through stage 4 chronic kidney disease, or unspecified chronic kidney disease; N18.3 Chronic kidney disease, stage 3 (moderate); E78.5 Hyperlipidemia, unspecified; Z86.73 Personal history of transient ischemic attack (TIA), and cerebral infarction without residual deficits; Z79.01 Long term (current) use of anticoagulants; R53.1 Weakness; W18.39XA Other fall on same level, initial encounter; M19.90 Unspecified osteoarthritis, unspecified site; E86.0 Dehydration; M70.61 Trochanteric bursitis, right hip; E53.8 Deficiency of other specified B group vitamins; R60.0 Localized edema; E11.9 Type 2 diabetes mellitus without complications; R33.9 Retention of urine, unspecified; K59.00 Constipation, unspecified
CPT/HCPCS: 43235; 36410; 36415; 36430; 73521; 80048; 80053; 80061; 84145; 86850; 86900; 86901; 86920; 87040; 96361; 96365; 96375; 97110; 97162; 97166; 97530; 97535; 99220; 99221; 99222; 99232; 99233; 99239; 99252; 99253; 99285; U0003; 70450; 71045; 74176; 78582; 81003; 83036; 83605; 83735; 85014; 85018; 85025; 86140; 86644; 87086; G0378; J0696; J2001; J3490; P9016

== ENCOUNTER → 2020-07-05 08:03 | Outpatient (BNVA) | payer MEDICARE, BC, SELFPAY | PROVIDERS: PCP Internal Medicine; Referring Provider Internal Medicine; Visit Provider Psychiatry & Neurology Neurology | DX: R69 Illness, unspecified (principal) ==

== ENCOUNTER 2020-07-11 16:23 | Outpatient (REF) | payer SELFPAY ==
[2020-07-11 16:56] LABS: Abs Immature Grans 0.03 10^3/uL (0.0-0.06); Absolute Basophil Count 0.05 10^3/uL (0.0-0.2); Absolute Eosinophil Count 0.29 10^3/uL (0.0-0.7); Absolute Lymphocyte Count 1.69 10^3/uL (1.2-3.4); Absolute Monocyte Count 0.61 10^3/uL (0.1-0.8); Absolute Neutrophil Count 4.28 10^3/uL (1.2-6.7); Basophils % 0.7; Eosinophils % 4.2; HCT 27.8 % (40.0-50.0); HGB 9.5 g/dL (13.5-17.5); Immature Grans % 0.4; Lymphocytes % 24.3; MCH 32.4 pg (27.0-33.0); MCHC 34.2 % (32.0-36.0); MCV 94.9 fL (80-95); MPV 9.4 fL (8.0-11.0); Monocytes % 8.8; Neutrophils % 61.6; Nucleated RBC 0 %; RBC 2.93 10^6/uL (4.36-5.78); RDW 19.7 % (11.8-14.1); RDW-SD 66.4 fL; WBC 6.95 10^3/uL (4.4-10.8)
[2020-07-11 17:11] LABS: Platelet Count 398 10^3/uL (130-400)
[2020-07-11 17:32] LABS: ALT 32 U/L (16-63); AST 18 U/L (15-37); Albumin 2.6 g/dL (3.4-5.0); Alkaline Phosphatase 71 U/L (46-116); Anion Gap 11.1 mmol/L (3-11); BUN 16 mg/dL (7-18); Bilirubin, Total 0.3 mg/dL (0.2-1.0); CO2 21.9 mmol/L (21.0-32.0); CREATININE 1.58 mg/dL (0.70-1.30); Calcium 7.9 mg/dL (8.5-10.1); Chloride 109 mmol/L (98-107); Estimated GFR 42.09 (mL/min/1.73m2); Glucose 120 mg/dL (74-106); Potassium 3.5 mmol/L (3.5-5.1); Sodium 142 mmol/L (136-145); Total Protein 4.9 g/dL (6.4-8.2)
[2020-07-13 17:47] LABS: COVID-19 RT-PCR Result Not Detected ((See Note))
== END 2020-07-11 16:43 ==
LOC: LBN 16:23
PROVIDERS: PCP Internal Medicine; Visit Provider Nurse Practitioner Adult Health
DX: I82.432 Acute embolism and thrombosis of left popliteal vein (principal); E11.9 Type 2 diabetes mellitus without complications; N18.3 Chronic kidney disease, stage 3 (moderate); Z11.59 Encounter for screening for other viral diseases
CPT/HCPCS: 80053; U0003; 85025

== ENCOUNTER 2020-07-25 16:10 | Outpatient (REF) | payer MEDICARE, BC, SELFPAY ==
[2020-07-25 16:56] LABS: Abs Immature Grans 0.03 10^3/uL (0.0-0.06); Absolute Basophil Count 0.05 10^3/uL (0.0-0.2); Absolute Eosinophil Count 0.36 10^3/uL (0.0-0.7); Absolute Lymphocyte Count 2.19 10^3/uL (1.2-3.4); Absolute Monocyte Count 0.71 10^3/uL (0.1-0.8); Absolute Neutrophil Count 4.06 10^3/uL (1.2-6.7); Basophils % 0.7; Eosinophils % 4.9; HCT 31.5 % (40.0-50.0); HGB 10.4 g/dL (13.5-17.5); Immature Grans % 0.4; Lymphocytes % 29.6; MCH 32.6 pg (27.0-33.0); MCV 98.7 fL (80-95); MPV 9.4 fL (8.0-11.0); Monocytes % 9.6; Neutrophils % 54.8; Nucleated RBC 0 %; Platelet Count 352 10^3/uL (130-400); RBC 3.19 10^6/uL (4.36-5.78); RDW 17.5 % (11.8-14.1); RDW-SD 63.4 fL
[2020-07-25 17:13] LABS: Anion Gap 10.3 mmol/L (3-11); BUN 19 mg/dL (7-18); CO2 24.7 mmol/L (21.0-32.0); Calcium 8.1 mg/dL (8.5-10.1); Chloride 108 mmol/L (98-107); Estimated GFR 41.49 (mL/min/1.73m2); Glucose 129 mg/dL (74-106); Potassium 3.8 mmol/L (3.5-5.1); Sodium 143 mmol/L (136-145)
== END 2020-07-25 16:30 ==
LOC: LBN 16:10
PROVIDERS: PCP Internal Medicine; Visit Provider Nurse Practitioner Adult Health
DX: I10 Essential (primary) hypertension (principal); N18.3 Chronic kidney disease, stage 3 (moderate)
CPT/HCPCS: 80048; 85025

== ENCOUNTER 2020-09-26 12:03 | Outpatient (CLI) | payer MEDICARE, BC, SELFPAY ==
--- NOTE | 2020-09-26 | DI.US_ITS ---
EXAM: US LOWER EXTREMITY VENOUS LT CLINICAL HISTORY: ACUTE DVT OF LT LEG, I82.402. TECHNIQUE: Ultrasound performed using standard protocol. COMPARISON: US US ECHOCARDIOGRAM from 06/28/2020 FINDINGS: Duplex venous ultrasound was performed according to the usual protocol. The deep veins are freely com pressible throughout and there is normal flow augmentation with manual calf compression. 2D and Doppl er evaluation are unremarkable. IMPRESSION: No evidence of deep venous thrombosis of the lower extremity. DATA REPOSITORY:
== END 2020-09-26 12:23 ==
PROVIDERS: PCP Internal Medicine; Visit Provider Internal Medicine
DX: I82.402 Acute embolism and thrombosis of unspecified deep veins of left lower extremity (principal)
CPT/HCPCS: 93971

== ENCOUNTER 2021-10-02 11:27 | Outpatient (REF) | payer MEDICARE, BC, SELFPAY ==
[2021-10-02 16:28] LABS: HGB 14.6 g/dL (13.5-17.5); MCH 30.8 pg (27.0-33.0); MCHC 33.2 % (32.0-36.0); MCV 92.8 fL (80-95); MPV 10.3 fL (8.0-11.0); Platelet Count 258 10^3/uL (130-400); RBC 4.74 10^6/uL (4.36-5.78); RDW 14.4 % (11.8-14.1); RDW-SD 49.1 fL; WBC 7.28 10^3/uL (4.4-10.8)
[2021-10-02 16:29] LABS: Anion Gap 11.7 mmol/L (3-11); BUN 25 mg/dL (7-18); CO2 25.3 mmol/L (21.0-32.0); CREATININE 1.7 mg/dL (0.70-1.30); Calcium 9.3 mg/dL (8.5-10.1); Chloride 106 mmol/L (98-107); Estimated GFR 38.59 (mL/min/1.73m2); Glucose 176 mg/dL (74-106); Potassium 4.1 mmol/L (3.5-5.1); Sodium 143 mmol/L (136-145)
[2021-10-02 17:11] LABS: Hemoglobin A1C 6.1 % (<5.7)
== END 2021-10-02 11:28 | disposition home or self-care (01) ==
LOC: NCHCN 11:27
PROVIDERS: PCP Internal Medicine; Visit Provider Internal Medicine
DX: E11.9 Type 2 diabetes mellitus without complications (principal); I10 Essential (primary) hypertension; N18.30 Chronic kidney disease, stage 3 unspecified
CPT/HCPCS: 80048; 85027; 83036

== ENCOUNTER 2022-10-03 15:59 | Outpatient (REF) | payer MEDICARE, BC, SELFPAY ==
[2022-10-03 14:30] LABS: HGB 14.8 g/dL (13.5-17.5); MCH 30.6 pg (27.0-33.0); MCHC 33.6 % (32.0-36.0); MCV 91 fL (80-95); MPV 10.4 fL (8.0-11.0); Platelet Count 269 10^3/uL (130-400); RBC 4.84 10^6/uL (4.36-5.78); WBC 8.29 10^3/uL (4.4-10.8)
[2022-10-03 14:55] LABS: ALT 26 U/L (16-63); AST 24 U/L (15-37); Albumin 4.1 g/dL (3.4-5.0); Alkaline Phosphatase 112 U/L (46-116); Anion Gap 9.1 mmol/L (3-11); BUN 24 mg/dL (7-18); Bilirubin, Total 0.8 mg/dL (0.2-1.0); CO2 26.9 mmol/L (21.0-32.0); CREATININE 1.9 mg/dL (0.70-1.30); Calcium 9.5 mg/dL (8.5-10.1); Chloride 104 mmol/L (98-107); Estimated GFR 34.14 (mL/min/1.73m2); Glucose 142 mg/dL (74-106); Potassium 4.5 mmol/L (3.5-5.1); Sodium 140 mmol/L (136-145); Total Protein 7.4 g/dL (6.4-8.2)
== END 2022-10-03 16:00 | disposition home or self-care (01) ==
LOC: NCHCN 15:59
PROVIDERS: PCP Internal Medicine; Visit Provider Family Medicine
DX: N18.30 Chronic kidney disease, stage 3 unspecified (principal); I10 Essential (primary) hypertension; E66.9 Obesity, unspecified
CPT/HCPCS: 80053; 85027

== ENCOUNTER 2023-04-02 17:52 | Outpatient (REF) | payer MEDICARE, BC, SELFPAY ==
[2023-04-02 15:29] LABS: Anion Gap 10.8 mmol/L (3-11); BUN 24 mg/dL (7-18); CO2 24.2 mmol/L (21.0-32.0); CREATININE 2.2 mg/dL (0.70-1.30); Calcium 9.2 mg/dL (8.5-10.1); Chloride 104 mmol/L (98-107); Estimated GFR 28.63 (mL/min/1.73m2); Glucose 118 mg/dL (74-106); Potassium 3.9 mmol/L (3.5-5.1); Sodium 139 mmol/L (136-145)
== END 2023-04-02 17:53 | disposition home or self-care (01) ==
LOC: NCHCN 17:52
PROVIDERS: PCP Internal Medicine; Visit Provider Internal Medicine
DX: E11.9 Type 2 diabetes mellitus without complications (principal); I10 Essential (primary) hypertension; N18.30 Chronic kidney disease, stage 3 unspecified
CPT/HCPCS: 80048

== ENCOUNTER 2023-04-23 13:08 | Outpatient (REF) | payer MEDICARE, BC, SELFPAY ==
[2023-04-23 22:18] LABS: Anion Gap 9.8 mmol/L (3-11); BUN 39 mg/dL (7-18); CO2 26.2 mmol/L (21.0-32.0); CREATININE 2.2 mg/dL (0.70-1.30); Chloride 106 mmol/L (98-107); Estimated GFR 28.63 (mL/min/1.73m2); Glucose 149 mg/dL (74-106); Potassium 5.3 mmol/L (3.5-5.1); Sodium 142 mmol/L (136-145)
== END 2023-04-23 13:09 | disposition home or self-care (01) ==
LOC: NCHCN 13:08
PROVIDERS: PCP Internal Medicine; Visit Provider Family Medicine
DX: I10 Essential (primary) hypertension (principal)
CPT/HCPCS: 80048

== ENCOUNTER 2023-10-15 20:48 | Outpatient (REF) | payer MEDICARE, BC, SELFPAY ==
[2023-10-15 21:02] LABS: Anion Gap 8.4 mmol/L (3-11); BUN 30 mg/dL (7-18); CO2 27.6 mmol/L (21.0-32.0); CREATININE 2.2 mg/dL (0.70-1.30); Calcium 9.2 mg/dL (8.5-10.1); Chloride 106 mmol/L (98-107); Estimated GFR 28.46 (mL/min/1.73m2); Glucose 123 mg/dL (74-106); Potassium 4.6 mmol/L (3.5-5.1); Sodium 142 mmol/L (136-145)
== END 2023-10-15 20:49 | disposition home or self-care (01) ==
LOC: NCHCN 20:48
PROVIDERS: PCP Internal Medicine; Visit Provider Family Medicine
DX: N18.9 Chronic kidney disease, unspecified (principal)
CPT/HCPCS: 80048

== ENCOUNTER 2024-03-11 14:33 | Emergency (ER) | payer MEDICARE, BC, SELFPAY ==
[2024-03-11 14:34] VITALS: BP 122/91; PULSE 78; RESP 18; TEMP 37.1; O2SAT 97
[2024-03-11 15:59] VITALS: BP 139/58; PULSE 77; TEMP 36.4; O2SAT 97
[2024-03-11 16:12] VITALS: BP 139/58; PULSE 77; RESP 18; TEMP 36.4; O2SAT 97
--- NOTE | 2024-03-11 16:13 | W.ED.GENAD ---
Discharge Plan Disposition Patient Disposition: Home Condition: Stable Discharge Details Clinical Impression: COVID Primary Care Provider: Garbiel Brooks ED Provider: Nicholas Knapp Home Meds and New Rx's Prescriptions: Continued sucralfate 1 gram Tablet 1 g PO AC & HS Qty: 120 0RF tamsulosin 0.4 mg Capsule 0.4 mg PO DAILY Qty: 30 0RF pantoprazole 40 mg tablet,delayed release (DR/EC) 40 mg PO BID Qty: 60 0RF atorvastatin 20 mg Tablet 20 mg PO DAILY aspirin [Aspir-81] 81 mg Tablet,Delayed Release (Dr/Ec) 81 mg PO DAILY cholecalciferol (vitamin D3) [Vitamin D3] 50 mcg (2,000 unit) Capsule 2,000 unit PO DAILY amlodipine 5 mg Tablet 10 mg PO DAILY Qty: 30 0RF acetaminophen [Mapap Extra Strength] 500 mg Tablet 1,000 mg PO Q8H Qty: 90 0RF Eliquis 5 mg Tablet See Rx Instructions .ROUTE .COMPLEX Qty: 60 0RF Rx Instructions: Take two tablets twice daily x 9 doses, then Start taking 1 tablet twice daily folic acid 1 mg Tablet 1 mg PO DAILY Qty: 30 0RF cyanocobalamin (vitamin B-12) 1,000 mcg capsule 1,000 mcg PO DAILY Qty: 30 0RF lidocaine [Lidoderm] 5 % Adhesive Patch,Medicated 1 patch topical Q24H Qty: 30 0RF Rx Instructions: apply to right hip at the painful area, on for 12 hours, off for 12 hours Therems-M 27-0.4 mg Tablet 1 tab PO DAILY Qty: 30 0RF Discharge Instructions Additional Instructions: You are positive for COVID. Please follow the CDC recommended guidelines for isolation since you are positive for COVID. He is can be found at the CDC website. Follow-up with your primary care provider within 1 to 2 weeks If you feel more ill or have difficulty breathing return to the emergency department for reevaluation HPI General Mode of arrival: ambulatory. Date/Time Provider Initiated Documentation: 03/11/24 14:34. Limitations to Documentation: no limitations. Information obtained by: patient. History of Present Illness 88 year old M presents to the emergency department with the chief complaint of felt dizzy earlier, described as mild, Patient started experiencing this hour(s) (6) and it has been now resolved. No relieving factors improve symptom(s), No exacerbating factors reported . Patient notes denies chest pain and shortness of breath. Patient did receive the following treatments prior to arrival, none Related Data Home Medications Medication Instructions Recorded Confirmed aspirin 81 mg tablet,delayed 81 mg PO DAILY 05/31/20 03/11/24 release (Aspir-) atorvastatin 20 mg tablet 20 mg PO DAILY 05/31/20 03/11/24 cholecalciferol (vitamin D3) 50 2,000 unit PO DAILY 05/31/20 03/11/24 mcg (2,000 unit) capsule (Vitamin D3) acetaminophen 500 mg tablet (Mapap 1,000 mg (2 x 500 mg) PO Q8H #90 06/30/20 03/11/24 Extra Strength) tabs amlodipine 5 mg tablet 10 mg (2 x 5 mg) PO DAILY #30 tabs 06/30/20 03/11/24 apixaban 5 mg tablet (Eliquis) See Rx Instructions .Route 06/30/20 03/11/24 .COMPLEX #60 tabs cyanocobalamin (vitamin B-12) 1,000 mcg PO DAILY #30 caps 06/30/20 03/11/24 1,000 mcg capsule folic acid 1 mg tablet 1 mg PO DAILY #30 tabs 06/30/20 03/11/24 lidocaine 5 % topical patch 1 patch topical Q24H #30 ea 06/30/20 03/11/24 (Lidoderm) multivitamin,[id number] 27 1 tab PO DAILY #30 tabs 06/30/20 03/11/24 mg-0.4 mg tablet (Therems-M) pantoprazole 40 mg tablet,delayed 40 mg PO BID #60 tabs 07/06/20 03/11/24 release sucralfate 1 gram tablet 1 g PO AC & HS #120 tabs 07/06/20 03/11/24 tamsulosin 0.4 mg capsule 0.4 mg PO DAILY #30 caps 07/06/20 03/11/24 Previous Rx's Medication Instructions Recorded acetaminophen 500 mg tablet (Mapap 1,000 mg (2 x 500 mg) PO Q8H #90 06/30/20 Extra Strength) tabs amlodipine 5 mg tablet 10 mg (2 x 5 mg) PO DAILY #30 tabs 06/30/20 apixaban 5 mg tablet (Eliquis) See Rx Instructions .Route 06/30/20 .COMPLEX #60 tabs cyanocobalamin (vitamin B-12) 1,000 mcg PO DAILY #30 caps 06/30/20 1,000 mcg capsule folic acid 1 mg tablet 1 mg PO DAILY #30 tabs 06/30/20 lidocaine 5 % topical patch 1 patch topical Q24H #30 ea 06/30/20 (Lidoderm) multivitamin,[id number] 27 1 tab PO DAILY #30 tabs 06/30/20 mg-0.4 mg tablet (Therems-M) pantoprazole 40 mg tablet,delayed 40 mg PO BID #60 tabs 07/06/20 release sucralfate 1 gram tablet 1 g PO AC & HS #120 tabs 07/06/20 tamsulosin 0.4 mg capsule 0.4 mg PO DAILY #30 caps 07/06/20 Allergies Allergy/AdvReac Type Severity Reaction Status Date / Time No Known Allergies Allergy Unverified 03/11/24 14:39 General Stated Complaint: GenMedical SANTINO: 3 Review of Systems All systems reviewed & are unremarkable except as noted in HPI and below Constitutional Constitutional: Denies chills, Denies fever(s) and Denies weakness Cardiovascular Cardiovascular: Denies chest pain and Denies dyspnea Respiratory Respiratory: Denies cough and Denies dyspnea Gastrointestinal Gastrointestinal: Denies abdominal pain, Denies nausea and Denies vomiting Musculoskeletal Musculoskeletal: Denies joint swelling Neurologic Neurologic: Denies weakness Exam Const General: no acute distress Orientation: alert HENPA Head: normal to inspection Ears: external ears normal General nose exam: external nose normal Mouth: moist mucous membranes Eyes General: appearance normal, both eyes and all related structures Neck Neck: normal visual inspection Resp Effort & Inspection: normal respiratory effort and able to speak in complete sentences Auscultation: clear to auscultation bilaterally Cardio Rate: regular rate Heart Sounds: no murmurs Back/Spine/Pelvis Back: no CVA tenderness Skin General skin exam: no rashes or lesions noted Neuro General: patient alert and patient oriented x3 Extrem General: normal to inspection Psych Mental Status: mental status grossly normal Course Vital Signs Vital signs: Vital Signs Temperature 37.1 C 03/11/24 14:34 Pulse 78 03/11/24 14:34 Respiratory Rate 18 03/11/24 14:34 Blood Pressure 122/91 H 03/11/24 14:34 Pulse Oximetry 97 03/11/24 14:34 Temperature 36.4 C L 03/11/24 16:12 Temperature Source Temporal Artery Scan 03/11/24 16:12 Pulse 77 03/11/24 16:12 Respiratory Rate 18 03/11/24 16:12 Respiratory Effort Normal 03/11/24 16:06 Respiratory Depth Normal 03/11/24 16:06 Respiratory Pattern Normal 03/11/24 16:06 Blood Pressure 139/58 L 03/11/24 16:12 Blood Pressure Position Sitting 03/11/24 14:34 Pulse Oximetry 97 03/11/24 16:12 Oxygen Delivery Method Room Air 03/11/24 16:12 Oxygen Flow Rate 0 03/11/24 16:12 Pain Level 0 03/11/24 16:12 Medical Decision Making 88-year-old male with a history of prior DVT on Eliquis, hyperlipidemia, CVA, comes in with an episode of feeling slightly dizzy earlier today which resolved after few minutes. He denies any falls, chest pain, unilateral weakness or paresthesias. He says he is worried about possible COVID as he says that his is in the rehab and there has been a run of COVID going through it. He denies any chest pain, fever, cough, headache, dyspnea, abdominal pain. He says earlier he had some lower back pain that also resolved. He is alert oriented x 4 speaking clearly in full sentences in no distress, has no focal deficits, NIH of 0. Unclear etiology for his dizziness earlier, does not sound like a TIA given he had no other symptoms of the dizziness. Will check CBC, CMP, mag and fluid and reassess. Labs show no significant changes from baseline, he is positive for COVID. Not requiring any oxygen, he does have chronic kidney disease states he is vaccinated, discussed oral options and at this time he declines to be put on any and feel this is reasonable given he is vaccinated his chance of becoming severely ill is very low. He is stable for discharge, advised to follow-up with his PCP and return precautions given Differential Diagnosis Differential Diagnosis: Anemia, electrolyte abnormality, COVID Medical Records Medical records reviewed: Yes I reviewed the patient's medical records. Lab Data Lab results reviewed: Yes I reviewed the patient's lab results. Quality:SDOH Health Related Social Needs: No Data to Display PFSH All Active Problems (Updated 03/11/24 @ 17:37 by Nicholas Knapp MD) COVID (Acute) Goals of care, counseling/discussion (Acute) Verbosity and circumstantial detail obscuring reason for contact (Chronic) Sedentary lifestyle (Chronic) Caregiver stress (Chronic) Depression (Chronic) Eccentric personality (Chronic) H/O: CVA (cerebrovascular accident) (Acute) Urinary retention (Chronic) GI bleeding (Chronic) New onset type 2 diabetes mellitus (Acute) Weakness (Chronic) Hypokalemia (Active 05/03/13) Elevated creatinine. (Active 05/03/13) Overweight (Active) Erectile dysfunction (Active) Folate deficiency (Chronic) B12 deficiency (Chronic) Deep venous thrombosis of left popliteal vein (Acute) Acute kidney injury superimposed on chronic kidney disease (Acute) Trochanteric bursitis, right hip (Chronic) Edema of both lower extremities (Chronic) Dehydration (Acute) History of surgery (Active) onsillectomy and adenoidectomy in childhood. Incision and drainage of the neck in childhood. 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 Pets and animals: Yes (wai tzu x 2) Pets and animals: dog(s) Current gender identity: male What is your relationship status?: How often do you talk on the phone with friends or family?: three or more times per week How often do you get together with friends or relatives?: once per week Panel score (0-1 are the most socially isolated patients): 2 What type of physical activity do you participate in: walking and sedentary lifestyle Duration: 15-30 minutes/day Frequency: daily Special miya needs: No Agree to transfusion: Yes Seatbelt use: always Working smoke detector in home: Yes Fire extinguisher in home: Yes Do you feel safe at home: Yes Do you feel safe in your relationship?: Yes Additional Social history: Lives in [place] with his . 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 with moderate dementia. SHe needs help with ADLs. Needs home visits as an outpatient as he cannot bring his to appointments.
[2024-03-11 16:27] LABS: Abs Immature Grans 0.04 10^3/uL (0.0-0.06); Absolute Basophil Count 0.06 10^3/uL (0.0-0.2); Absolute Eosinophil Count 0.19 10^3/uL (0.0-0.7); Absolute Lymphocyte Count 0.89 10^3/uL (1.2-3.4); Absolute Monocyte Count 0.84 10^3/uL (0.1-0.8); Absolute Neutrophil Count 6.29 10^3/uL (1.2-6.7); Basophils % 0.7 %; Eosinophils % 2.3 %; HCT 42.4 % (40.0-50.0); HGB 14.6 g/dL (13.5-17.5); Immature Grans % 0.5 %; Lymphocytes % 10.7 %; MCH 32.1 pg (27.0-33.0); MCHC 34.4 % (32.0-36.0); MCV 93 fL (80-95); MPV 10.3 fL (8.0-11.0); Monocytes % 10.1 %; Neutrophils % 75.7 %; Platelet Count 220 10^3/uL (130-400); RBC 4.55 10^6/uL (4.36-5.78); RDW 14.3 % (11.8-14.1); RDW-SD 48.9 fL; WBC 8.31 10^3/uL (4.4-10.8)
[2024-03-11 16:36] LABS: Bilirubin Negative (Negative); Blood Small (Negative); Clarity Clear (Clear); Glucose Negative (Negative); Ketones Negative (Negative); Leukocyte Esterase Negative (Negative); Nitrite Negative (Negative); Specific Gravity 1.015 (1.005-1.025)
[2024-03-11 16:46] LABS: Bacteria Negative HPF (Negative); C & S Indicated? No; Casts Negative LPF (Negative); Crystals Negative HPF (Negative); Epithelial Cells Rare HPF (Negative); Mucus Negative (Negative); WBC 0-2 HPF (0-5)
[2024-03-11 16:48] LABS: INR 1.1 (0.9-1.1)
[2024-03-11 17:05] LABS: Influenza A PCR Negative (Negative); Influenza B PCR Negative (Negative); RSV PCR Negative (Negative)
[2024-03-11 17:06] LABS: Source NASOPHARYNX
[2024-03-11 17:07] LABS: COVID-19 PCR Positive (Negative)
[2024-03-11 17:17] LABS: ALT 32 U/L (16-63); AST 25 U/L (15-37); Albumin 4.1 g/dL (3.4-5.0); Alkaline Phosphatase 98 U/L (46-116); Anion Gap 10.6 mmol/L (3-11); BUN 32 mg/dL (7-18); Bilirubin, Total 0.9 mg/dL (0.2-1.0); CO2 25.4 mmol/L (21.0-32.0); CREATININE 2.3 mg/dL (0.70-1.30); Calcium 8.9 mg/dL (8.5-10.1); Chloride 104 mmol/L (98-107); Estimated GFR 26.98 (mL/min/1.73m2); Glucose 113 mg/dL (74-106); Potassium 4.2 mmol/L (3.5-5.1); Sodium 140 mmol/L (136-145); TSH (W/Ref FT4) 4.06 uIU/mL (0.36-3.74); Total Protein 7.3 g/dL (6.4-8.2)
[2024-03-11 17:35] LABS: FREE T4 0.85 ng/dL (0.76-1.46)
[2024-03-11 17:48] VITALS: PULSE 88; RESP 15; O2SAT 99
== END 2024-03-11 17:49 | disposition home or self-care (01) ==
PROVIDERS: Emergency Provider Emergency Medicine; PCP Internal Medicine
DX: U07.1 COVID-19 (principal); E78.5 Hyperlipidemia, unspecified; Z86.73 Personal history of transient ischemic attack (TIA), and cerebral infarction without residual deficits; Z86.718 Personal history of other venous thrombosis and embolism; Z79.01 Long term (current) use of anticoagulants; Z79.82 Long term (current) use of aspirin
CPT/HCPCS: 80053; 82962; 87637; 99283; 81003; 81015; 83735; 84439; 84443; 85025; 85610; 85730

== ENCOUNTER 2024-10-13 16:32 | Outpatient (REF) | payer MEDICARE, BC, SELFPAY ==
[2024-10-13 21:24] LABS: Anion Gap 9.9 mmol/L (3-11); BUN 29 mg/dL (7-18); CO2 26.1 mmol/L (21.0-32.0); CREATININE 2.1 mg/dL (0.70-1.30); Calcium 9.1 mg/dL (8.5-10.1); Chloride 107 mmol/L (98-107); Glucose 125 mg/dL (74-106); LDL CHOLESTEROL 60 mg/dL (<100); Potassium 4.4 mmol/L (3.5-5.1); Sodium 143 mmol/L (136-145)
== END 2024-10-13 16:33 | disposition home or self-care (01) ==
LOC: NCHCN 16:32
PROVIDERS: PCP Internal Medicine; Visit Provider Family Medicine
DX: E78.5 Hyperlipidemia, unspecified (principal)
CPT/HCPCS: 80048; 83721

== ENCOUNTER 2025-04-14 21:42 | Outpatient (REF) | payer MEDICARE, BC, SELFPAY ==
[2025-04-14 21:09] LABS: HCT 39.8 % (40.0-50.0); HGB 13.6 g/dL (13.5-17.5); MCH 31.6 pg (27.0-33.0); MCHC 34.2 % (32.0-36.0); MCV 93 fL (80-95); MPV 10.4 fL (8.0-11.0); Platelet Count 249 10^3/uL (130-400); RDW 14.6 % (11.8-14.1); RDW-SD 49.3 fL; WBC 8.26 10^3/uL (4.4-10.8)
[2025-04-14 21:32] LABS: ALT 32 U/L (16-63); AST 26 U/L (15-37); Albumin 4.1 g/dL (3.4-5.0); Alkaline Phosphatase 124 U/L (46-116); Anion Gap 11.1 mmol/L (3-11); BUN 28 mg/dL (7-18); Bilirubin, Total 0.8 mg/dL (0.2-1.0); CO2 25.9 mmol/L (21.0-32.0); CREATININE 2.2 mg/dL (0.70-1.30); Calcium 8.6 mg/dL (8.5-10.1); Chloride 105 mmol/L (98-107); Estimated GFR 28.28 (mL/min/1.73m2); Glucose 122 mg/dL (74-106); Potassium 4.1 mmol/L (3.5-5.1); Sodium 142 mmol/L (136-145); TSH (W/Ref FT4) 95.22 uIU/mL (0.36-3.74)
[2025-04-14 21:50] LABS: FREE T4 0.34 ng/dL (0.76-1.46)
== END 2025-04-14 21:43 | disposition home or self-care (01) ==
LOC: NCHCN 21:42
PROVIDERS: PCP Internal Medicine; Visit Provider Family Medicine
DX: I10 Essential (primary) hypertension (principal); E66.9 Obesity, unspecified; N18.32 Chronic kidney disease, stage 3b
CPT/HCPCS: 80053; 85027; 84439; 84443

== ENCOUNTER 2025-06-30 15:13 | Outpatient (REF) | payer MEDICARE, BC, SELFPAY ==
[2025-06-30 21:30] LABS: TSH 0.02 uIU/mL (0.36-3.74)
== END 2025-06-30 15:14 | disposition home or self-care (01) ==
LOC: NCHCN 15:13
PROVIDERS: PCP Family Medicine; Visit Provider Family Medicine
DX: E03.9 Hypothyroidism, unspecified (principal)
CPT/HCPCS: 84439; 84443